=== PATIENT | male | born 1945 | race Caucasian/White ===

== ENCOUNTER 2019-05-18 08:17 | Inpatient (IN) ==
--- NOTE | 2019-05-02 13:32 | PAT Medication Instructions ---
Medication Instructions Date of Service May 02, 2019 Home Medications aspirin [Aspir-81] 81 mg PO QAM atorvastatin 20 mg PO QAM cholecalciferol (vitamin D3) [Vitamin D3] 1,000 unit PO QPM diltiazem HCl [Cardizem CD] 120 mg PO QAM lisinopril-hydrochlorothiazide 1 tab PO BID metformin 1,000 mg PO BID ASK your prescriber and surgeon aspirin [Aspir-81] 81 mg PO QAM DO NOT take the morning of surgery lisinopril-hydrochlorothiazide 1 tab PO BID metformin 1,000 mg PO BID Take morning of surgery With a small sip of water, OTHERWISE NOTHING TO EAT OR DRINK AFTER MIDNIGHT: atorvastatin 20 mg PO QAM diltiazem HCl [Cardizem CD] 120 mg PO QAM Take evening before surgery cholecalciferol (vitamin D3) [Vitamin D3] 1,000 unit PO QPM lisinopril-hydrochlorothiazide 1 tab PO BID metformin 1,000 mg PO BID Other Notes If you have any questions please call us at [phone] or [phone] or [phone] or [phone]
--- NOTE | 2019-05-05 10:15 | Anesthesiology Consultation ---
Date of Service May 05, 2019 Assessment & Plan (1) Encounter for pre-operative examination: - Patient seeing PCP (Dr. Kincaid/BOOM) prior to surgery (05/06)- awaiting office visit note. - Check BSG AM DOS - ASA instructions: okay to continue perioperatively per surgeon Chart Review Chart Review: Patient seen in Pre Admission Testing Teaching & Discussion Pre-Anesthesia Teaching/Discussion Notes: Instructed NPO after midnight before surgery,except medications with 15 cc of water. Medication instructions provided according to the PAT guidelines. History Surgery Operation Date: 05/18/19 07:45 Proposed Procedures p L1-S1 Decompression, R96-[place] Fusion, Spinal Cord Monitoring - Arjun Isaacs, Height/Weight Height: 5 ft 5.5 in Weight: 99.7 kg Allergies Allergy/AdvReac Type Severity Reaction Status Date / Time No Known Allergies Allergy Mild Verified 04/22/19 10:21 Medications Home Medications Medication Instructions Recorded Confirmed Last Taken aspirin [Aspir-81] 81 mg PO QAM 04/22/19 04/22/19 04/22/19 atorvastatin 20 mg PO QAM 04/22/19 04/22/19 04/22/19 cholecalciferol (vitamin D3) 1,000 unit PO QPM 04/22/19 04/22/19 Unknown [Vitamin D3] diltiazem HCl [Cardizem CD] 120 mg PO QAM 04/22/19 04/22/19 04/22/19 lisinopril-hydrochlorothiazide 1 tab PO BID 04/22/19 04/22/19 04/22/19 metformin 1,000 mg PO BID 04/22/19 04/22/19 04/22/19 Past Medical History Medical History CKD (chronic kidney disease) stage III Diabetes NIDDM Hyperlipidemia Hypertension Obesity PSVT (paroxysmal supraventricular tachycardia) remote hx s/p cardiac workup including stress test/Zio monitor, diltiazem added/discharged from cardiology 2014 and advised to f/u PRN Spinal stenosis Exercise / Class Metabolic Activity II 4-5 Yardwork/Stairs/Walk up hill Past Family History Family History Father Family history of colon cancer Family history of diabetes mellitus Grandmother No problems noted. Brother Family history of diabetes mellitus Grandfather (Maternal) No problems noted. Grandmother (Paternal) Family history of diabetes mellitus Grandmother (Maternal) Family history of diabetes mellitus Past Surgical History Surgical History History of anesthesia reaction slow to wake with tonsillectomy as child History of carpal tunnel surgery of left wrist History of colonoscopy History of repair of left rotator cuff History of right knee surgery X2 History of tonsillectomy Past Anesthesia History No Hx of Anesthesia Complications and No Family Hx of Anesthesia Complications History of PONV No Hx of PONV and No Hx of Motion Sickness Social History Smoking Status: Current every day smoker tobacco type: pipe Smoking cigarettes per day: DAILY PIPE Do You Dip or Chew Tobacco: No Hx Alcohol Use: Yes Alcohol type: beer alcohol intake frequency: a few times a week Hx Substance Use: No substance use type: does not use Review of Systems Rare palpitations. Patient denies chest pain, shortness of breath, dyspnea on exertion, cough, wheezing. Physical Exam Vital Signs VITALS BP 140/80 P 93 TEMP 98.6 SP02 97%RA RESP 18 PHYSICAL Full neck and c-spine range of motion. Full TMJ range of motion. TMD 4 finger breaths Mallampati Score 1 Dentition: several missing teeth on lower, full upper plate, poor dentition Lungs: clear throughout to auscultation Cardiac: regular rate and rhythm, II/ systolic murmur Spine: normal Carotid arteries: negative bruit Extremities: no edema Trimmed agosto Testing Laboratory Results 05/05/19 10:50 05/05/19 10:50 PT 10.5 Seconds (9.0-12.0) 05/05/19 10:50 INR 1.0 (0.9-1.1) 05/05/19 10:50 APTT 26.1 Seconds (21.0-31.0) 05/05/19 10:50 Hemoglobin A1c 7.8 % (4.5-5.6) H 05/05/19 10:50 Urine Color Yellow 05/05/19 Unknown Urine Appearance Clear (Clear) 05/05/19 Unknown Urine pH 5.0 (4.5-7.5) 05/05/19 Unknown Ur Specific [place] 1.022 (1.000-1.030) 05/05/19 Unknown Urine Protein Negative (Negative) 05/05/19 Unknown Urine Glucose (UA) Negative (Negative) 05/05/19 Unknown Urine Ketones Negative (Negative) 05/05/19 Unknown Urine Nitrite Negative (Negative) 05/05/19 Unknown Ur Leukocyte Esterase Negative (Negative) 05/05/19 Unknown Blood Type A Positive 05/05/19 10:50 Antibody Screen NEGATIVE 05/05/19 10:50 *Surgeon office made aware of elevated WBC and hgba1c* Electrocardiogram Date: 11/15/18 SR with first degree AVB at 96bpm. Otherwise normal ECG. Chest X-Ray Date: 11/18/18 Findings: + NAD (+ diffuse thoracic spine spondylosis) Echocardiogram Date: 09/14/18 LVEF 50-54%. Moderately increased cLV wall thickness. Mild LAE. Grade I DD. Mildly calcified AV. Several mitral annular calcification. Moderate MR. Stress Test Date: 06/30/14 Type: exercise Stress EKG/ECHO showed no evidence of ischemia. LVEF 55-59%. Mildly increased cLV wall thickness. Occasional PAC's with stress. Moderate MR.
[2019-05-05 12:35] LABS: Basophils # (auto) 0.03 K/uL (0-0.2); Basophils % (auto) 0.3 %; Eosinophils # (auto) 0.27 K/uL (0-0.5); Eosinophils % (auto) 2.3 %; Hematocrit (blood only) 40.9 % (42-52); Hemoglobin 14.1 g/dL (14.0-18.0); Immature Granulocytes # (auto) 0.07 K/uL (0.00-0.02); Immature Granulocytes % (auto) 0.6 %; Lymphocytes % (auto) 23.5 %; Mean Corpuscular Hemoglobin 32.4 pg (25-34); Mean Corpuscular Hgb Conc 34.5 g/dL (32-36); Mean Platelet Volume 11.5 fL (7.4-10.4); Monocytes # (auto) 1.12 K/uL (0.11-0.59); Monocytes % (auto) 9.4 %; Neutrophils # (auto) 7.65 K/uL (1.4-6.5); Neutrophils % (auto) 63.9 %; Platelet Count 248 K/uL (130-400); RDW Coefficient of Variation 12.9 % (11.5-14.5); RDW Standard Deviation 44.4 fL (36.4-46.3); Red Blood Count 4.35 M/uL (4.7-6.1); White Blood Count 11.94 K/uL (4.8-10.8)
[2019-05-05 12:40] LABS: Appearance Urine Clear (Clear); Bilirubin Urine Negative (Negative); Blood Urine Negative (Negative); Color Urine Yellow; Glucose Urine UA Negative (Negative); Ketones Urine Negative (Negative); Leukocyte Esterase Urine Negative (Negative); Nitrite Urine Negative (Negative); Protein Urine Negative (Negative); Specific Gravity Urine 1.022 (1.000-1.030); Urobilinogen Urine Negative (Negative)
[2019-05-05 12:45] LABS: BUN Creatinine Ratio 18.9 (10-20); Calcium 9.6 mg/dl (8.5-10.1); Creatinine Clr Calc Pharmacy 50.7 ml/min; Est GFR (Non-African American) 49.1; Potassium 4.2 mmol/L (3.5-5.1)
[2019-05-05 12:46] LABS: Partial Thromboplastin Time 26.1 Seconds (21.0-31.0); Prothrombin Time 10.5 Seconds (9.0-12.0)
[2019-05-05 13:14] LABS: Estimated Average Glucose 177 mg/dl; Hemoglobin A1C 7.8 % (4.5-5.6)
[~2019-05-18 08:17] MED LIST: ACETAMINOPHEN 500 MG TAB PO SCH; ALBUMIN HUMAN 5% 12.5 GM/250 ML VIAL IV ONE; CEFAZOLIN 1000MG 1,000 MG/7.5 ML SYR IV SCH; CEFAZOLIN 2000MG 2,000 MG/15 ML SYR IV SCH; CeleBREX 200 MG CAP PO SCH; GABAPENTIN 300 MG CAP PO SCH; LR 15ML/HR IV SCH
[2019-05-18] MEDS ORDERED: ePHEDrine sulfate 50 MG/ML AMP IV PRN (09:31)
[2019-05-18] MEDS ORDERED: ATROPINE SULFATE 0.1 MG/ML 10ML SYR IV PRN (09:31)
[2019-05-18] MEDS ORDERED: ONDANSETRON INJ 2 MG/ML 2 ML VIAL IV PRN ×2 (09:31→16:37)
[2019-05-18] MEDS ORDERED: HYDROmorphone INJ 1 MG/ML SYRINGE IV PRN ×2 (09:31→16:37)
[2019-05-18] MEDS ORDERED: fentaNYL citrate 100 MCG/2 ML VIAL IV PRN (09:31)
[2019-05-18] MEDS ORDERED: fentaNYL citrate 100 MCG/2 ML VIAL ONE ×4 (09:37→15:06)
[2019-05-18] MEDS ORDERED: PROPOFOL IV EMULSION 10 MG/ML 20 ML VIAL IV ONE (09:37)
[2019-05-18] MEDS ORDERED: ONDANSETRON INJ 2 MG/ML 2 ML VIAL ONE (09:37)
[2019-05-18] MEDS ORDERED: DEXAMETHASONE SOD INJ 4 MG/ML VIAL ONE (09:37)
[2019-05-18] MEDS ORDERED: ROCURONIUM BROMIDE 10 MG/ML 5 ML VIAL ONE (09:37)
[2019-05-18] MEDS ORDERED: LIDOCAINE HCL 2% 2 ML VIAL/AMP(20MG/ML) INFIL ONE (09:37)
--- NOTE | 2019-05-18 09:56 | History & Physical Bridge Note ---
Date of Service May 18, 2019 History & Physical Bridge Note I have examined the patient, reviewed the History & Physical and in the interval since the performance of the History & Physical I have noted the following changes of clinical significance: no changes noted
--- NOTE | 2019-05-18 09:57 | History & Physical Report ---
Date of Service May 18, 2019 Assessment & Plan (1) Neurogenic claudication due to lumbar spinal stenosis: L1-S1 decompression, T11 to pelvic fusion Present on Admission?: Yes History of Present Illness Chief Complaint: Back and bilateral leg pain Primary Care Provider: Mayuri Kincaid MD This is a 73-year-old male who presents with back and bilateral leg pain. After failing extensive course of nonoperative care is here for surgical invention. Allergies Allergy/AdvReac Type Severity Reaction Status Date / Time No Known Allergies Allergy Mild Verified 05/18/19 08:59 Home Medications Home Medications Medication Instructions Recorded Confirmed Type aspirin [Aspir-81] 81 mg PO QAM 04/22/19 05/18/19 History atorvastatin 20 mg PO QAM 04/22/19 05/18/19 History cholecalciferol (vitamin D3) 1,000 unit PO QPM 04/22/19 05/18/19 History [Vitamin D3] diltiazem HCl [Cardizem CD] 120 mg PO QAM 04/22/19 05/18/19 History lisinopril-hydrochlorothiazide 1 tab PO BID 04/22/19 05/18/19 History metformin 1,000 mg PO BID 04/22/19 05/18/19 History ibuprofen 600 mg PO Q6H PRN 05/18/19 05/18/19 History Past Med/Surg History Medical History CKD (chronic kidney disease) stage III Diabetes NIDDM Hyperlipidemia Hypertension Obesity PSVT (paroxysmal supraventricular tachycardia) remote hx s/p cardiac workup including stress test/Zio monitor, diltiazem added/discharged from cardiology 2014 and advised to f/u PRN Spinal stenosis Surgical History History of anesthesia reaction slow to wake with tonsillectomy as child History of carpal tunnel surgery of left wrist History of colonoscopy History of repair of left rotator cuff History of right knee surgery X2 History of tonsillectomy Family History Father Family history of colon cancer Family history of diabetes mellitus Grandmother No problems noted. Brother Family history of diabetes mellitus Grandfather (Maternal) No problems noted. Grandmother (Paternal) Family history of diabetes mellitus Grandmother (Maternal) Family history of diabetes mellitus Social History Preferred Language: Lithuanian Communication Ability: Effective Imaging Aide Required: No Beliefs That Will Affect Care: None Current Living Situation: Alone Other Information That Helps Us Care for You: No Feels Safe at Home: Yes Smoking Status: Current every day smoker Tobacco Type: pipe ; Cigarettes Per Day: DAILY PIPE ; Do You Dip or Chew Tobacco: No ; Hx Alcohol Use: Yes Alcohol type: beer Hx Substance Use: No Physical Exam Physical Exam: Patient is alert and oriented neurologically intact. Results & Data Vital Signs (Past 12 Hours) Vital Signs Temp Pulse Resp BP Pulse Ox 05/18/19 08:49 36.5 C 85 20 117/78 98
[2019-05-18] MEDS ORDERED: ALBUT/IPRATROP 3MG/0.5MG NEB 3 ML VIAL INH STA (10:04)
[2019-05-18] MEDS ORDERED: BUPIVACAINE/EPINEPHRINE 0.5% MPF 1:200,000 10 ML VIAL ONE (10:24)
[2019-05-18] MEDS ORDERED: BACITRACIN INJ 50,000 UNIT VIAL ONE (10:24)
[2019-05-18] MEDS ORDERED: ALBUT/IPRATROP 3MG/0.5MG NEB 3 ML VIAL INH PRN (10:31)
[2019-05-18] MEDS ORDERED: THROMBIN FOR SOLN 20000 UNIT KIT ONE (11:02)
[2019-05-18] MEDS ORDERED: KETAMINE HCL INJ 50 MG/ML 10 ML VIAL ONE (11:10)
[2019-05-18] MEDS ORDERED: FLOSEAL HEMOSTATIC MATRIX 10ML TOP ONE (11:29)
[2019-05-18] MEDS ORDERED: MIDAZOLAM HCL 1 MG/ML 2ML VIAL ONE (11:30)
[2019-05-18] MEDS ORDERED: HYDROmorphone INJ 2 MG/ML SYR/VIAL ONE ×2 (12:18→15:06)
[2019-05-18] MEDS ORDERED: SODIUM CHLORIDE 0.9% INJ 10 ML VIAL ONE (12:19)
[2019-05-18 13:13] LABS: iSTAT Creatinine 1.2 mg/dl (0.6-1.3); iSTAT Hemoglobin 9.5 g/dl (14.0-18.0); iSTAT Ionized Calcium 1.12 mmol/l (1.12-1.32); iSTAT Potassium 4.5 mmol/L (3.3-5.0)
[2019-05-18] MEDS ORDERED: CEFAZOLIN 250 MG/ML 1 GM VIAL ONE (13:44)
[2019-05-18] MEDS ORDERED: SODIUM CHLORIDE 0.9% 250 ML IV PRN ×3 (13:46→14:39)
[2019-05-18] MEDS ORDERED: CEFAZOLIN 2000MG 2,000 MG/15 ML SYR IV ONE (13:55)
[2019-05-18] MEDS ORDERED: CALCIUM CHLORIDE 10% 10 ML SYR IV ONE (13:56)
[2019-05-18 14:08] LABS: Hematocrit (blood only) 33.9 % (42-52); Hemoglobin 11.6 g/dL (14.0-18.0)
[2019-05-18] MEDS ORDERED: PHENYLEPHRINE 100MCG/ML 5ML SYR ONE ×2 (14:30→14:31)
[2019-05-18] MEDS ORDERED: PHENYLEPHRINE HCL 10 MG/ML VIAL ONE ×2 (14:30→15:41)
[2019-05-18] MEDS ORDERED: ePHEDrine sulfate 50 MG/ML SYR ONE (14:31)
--- NOTE | 2019-05-18 14:52 | Operative Report ---
Post Operative Report Pre & Post Diagnosis Operation Date: 05/18/19 10:05 Pre-Op Diagnosis: Neurogenic claudication due to lumbar spinal stenosis Post-Op Diagnosis: Neurogenic claudication due to lumbar spinal stenosis I identified the patient and participated in the time-out.: Yes Procedure Operation Date: 05/18/19 10:05 Actual Procedures 1 lumbar decompression with bilateral medial facetectomies and foraminotomies T12-L1 L1 L2-L3-L4 L4-L5 L5-S1. #2 posterior spinal fusion T11-S1. #3 placement posterior segmental instrumentation T11-S1 with cross-link. #4 interbody fusion L4-5 per #5 placed a peek cage 13 x 26 mm at L4-5. #6 placement of locally harvested morselized autograft in the posterior lateral gutters. #7 patient infuse collagen sponge bone master graft in the posterior lateral gutters and ostial amp and interbody space. Surgeon Arjun Isaacs, DO Horse Race Timer Willow Mckeon Estimated Blood Loss 2,000 Findings See Below The patient is 5 foot 5 inches tall weighing over 99 kg with a BMI in excess of 36. This combined with an EBL of 2000 cc created significant technical difficulty and at least 50% increased to the operative time. Specimens None Indications This is a 73-year-old male who presents with above-mentioned diagnosis after failing extensive course of nonoperative care is here for surgical intervention. Description of Procedure Patient was met with identified informed consent obtained. Patient was then taken to the operative suite underwent an patient placed in prone position on the South table on top of the Phill frame. All bony prominences were well- padded eyes inspected to ensure no external pressure placed upon the. This point the thoracolumbar spine was prepped and draped in normal sterile fashion. Sharp dissection with the assistance of Bovie cautery was performed down to and exposing the lamina and transverse processes of T11-S1. From a caudal cephalad fashion complete laminectomy of L5 L4 L3 L2 L1 partial laminectomy of T12 was performed including bilateral medial facetectomies and foraminotomies addressing severe multilevel spinal stenosis. After this complete pedicle screws were placed in T11-T12 L1-L2 L3-L4-L5 and S1 levels bilaterally and the purposes chaitanya contoured and placed. Through transforaminal approach on the left complete discectomy of L4-5 was performed endplates curetted to subcortical bleeding bone and a 13 x 26 mm peek cage filled with osteo-amp bone graft tapped in position. The rods were then locked into final position bilaterally. A cross-link locked in position. Transverse processes from T11 to the sacral ala were then burred to subcortical bleeding bone. Infuse collagen sponge master graft and local autograft was placed in the posterior lateral gutters. A cross-link locked in position. 15 round MELISSA drain inserted. The incision was then closed with 1 Vicryl in the fascia 2-0 Vicryl subcutaneously and 4 Monocryl for final skin closure. Steri-Strip sterile dressings placed. Patient will continue PACU stable condition. Please note Willow Mckeon was present at the entire procedure involved in patient positioning complex portions of the surgery and final skin closure. Lastly spinal cord monitoring was utilized that the procedure no changes noted. I attest to the content of the Intraoperative Record and any orders documented therein. Any exceptions are noted below.
--- NOTE | 2019-05-18 14:55 | Fluoroscopy Report ---
FL lumbar spine 2-3V HISTORY: 73 years-old Male L1-S1 DECOMPRESSION, [id number] FUSION COMPARISON: None available TECHNIQUE: 5 spot fluoroscopic images of the lumbar spine were obtained utilizing 45.6 seconds fluoro scopy time. FINDINGS: Extensive posterior interbody chaitanya and screw fusion hardware of the thoracolumbar spine appears to ext end from the T11 through the S1 level. As visualized, the alignment appears satisfactory and the hard anderson appears intact. Discectomy changes at L4-L5. Multilevel facet arthrosis with spondylitic spurrin g and disc space narrowing incidentally noted. Mild convex right curvature of the mid lumbar spine. IMPRESSION: Fluoroscopic assistance as above. Please see operative report for further details. ACT 112: Negative or not required by law. The above report was generated using voice recognition software. It may contain grammatical, syntax o r spelling errors. Electronically signed by: Deven Blackman M.D. 05/18/2019 2:54 PM
[2019-05-18] MEDS ORDERED: GLYCOPYRROLATE 0.2 MG/ML VIAL ONE (15:02)
[2019-05-18] MEDS ORDERED: NEOSTIGMINE METHYLSULFATE 1 MG/ML 10ML VIAL ONE (15:02)
[2019-05-18] MEDS ORDERED: VASOPRESSIN 20 UNIT/ML VIAL ONE (15:28)
[2019-05-18 15:59] LABS: Hematocrit (blood only) 30.9 % (42-52); Hemoglobin 10.6 g/dL (14.0-18.0); Mean Corpuscular Hemoglobin 31.5 pg (25-34); Mean Platelet Volume 10.5 fL (7.4-10.4); Platelet Count 205 K/uL (130-400); RDW Coefficient of Variation 13.2 % (11.5-14.5); RDW Standard Deviation 44.4 fL (36.4-46.3); Red Blood Count 3.36 M/uL (4.7-6.1); White Blood Count 16.52 K/uL (4.8-10.8)
[2019-05-18 16:02] LABS: iSTAT Creatinine 1.3 mg/dl (0.6-1.3); iSTAT Hemoglobin 10.5 g/dl (14.0-18.0); iSTAT Ionized Calcium 1.08 mmol/l (1.12-1.32); iSTAT Potassium 5.2 mmol/L (3.3-5.0)
[2019-05-18 16:05] LABS: Mean Corpuscular Hgb Conc 34.3 g/dL (32-36)
[2019-05-18 16:16] LABS: Basophils # (auto) 0.04 K/uL (0-0.2); Basophils % (auto) 0.2 %; Eosinophils # (auto) 0.02 K/uL (0-0.5); Eosinophils % (auto) 0.1 %; Immature Granulocytes # (auto) 0.19 K/uL (0.00-0.02); Immature Granulocytes % (auto) 1.2 %; Lymphocytes # (auto) 1.12 K/uL (1.2-3.4); Lymphocytes % (auto) 6.8 %; Monocytes # (auto) 0.62 K/uL (0.11-0.59); Monocytes % (auto) 3.8 %; Neutrophils # (auto) 14.53 K/uL (1.4-6.5); Neutrophils % (auto) 87.9 %
--- NOTE | 2019-05-18 16:20 | Anesthesiology Progress Note ---
Date of Service May 18, 2019 Anesthesia Post Procedure Vital Signs Vital Signs: Temp Pulse Pulse Pulse Resp BP BP 05/18/19 16:15 37.0 C 93 H 16 109/40 L 05/18/19 16:07 37.3 C 93 H 20 113/39 L 05/18/19 16:05 36.7 C 95 H 16 118/43 L 05/18/19 15:55 36.7 C 90 16 126/43 L 05/18/19 15:52 36.8 C 84 16 125/44 L 05/18/19 15:45 36.4 C L 90 16 113/44 L 05/18/19 15:39 36.5 C 95 H 18 108/46 L 05/18/19 15:36 36.5 C 92 H 12 95/24 L 05/18/19 10:18 95 H 16 05/18/19 08:49 36.5 C 85 20 BP Pulse Ox 05/18/19 16:15 103/68 96 05/18/19 16:07 100 05/18/19 16:05 130/60 100 05/18/19 15:55 141/67 H 100 05/18/19 15:52 100 05/18/19 15:45 142/70 H 100 05/18/19 15:39 100 05/18/19 15:36 97/38 L 100 05/18/19 10:18 05/18/19 08:49 117/78 98 Pain Intensity Buttock: Pain Intensity: 3 Transfer of Care Handoff Completed per policy Notes Mental Status: alert / awake / arousable and participated in evaluation Patient Amnestic to Procedure: Yes Nausea / Vomiting: adequately controlled Pain: adequately controlled Airway Patency, RR, SpO2: stable & adequate BP & HR: stable & adequate Hydration State: stable & adequate Anesthetic Complications: no major complications apparent and Pt Satisfied with anesthetic care Notes: Patient had significant intraoperative blood loss requiring pressor support and blood product replacement. received 3 units pRBCs during case and wrote for 2 units FFP that were started in recovery. low dose terri ggt started at end of procedure to maintain adequate blood pressure. decision made to observe overnight in ICU, surgeon placed orders. report given to ICU physician who was accepting patient. patient was awake and moving extremities x4 in recovery. met transfer criteria and sent to ICU in stable condition.
[2019-05-18] MEDS ORDERED: METOCLOPRAMIDE HCL INJ 5 MG/ML 2 ML VIAL IV PRN (16:37)
[2019-05-18] MEDS ORDERED: ONDANSETRON 4 MG OD TAB PO PRN (16:37)
[2019-05-18] MEDS ORDERED: MAGNESIUM HYDROXIDE SUSP 30 ML UDC PO PRN (16:37)
[2019-05-18] MEDS ORDERED: SOD PHOSPHATE/SOD BIPHOSPHATE ENEMA 132 ML BTL PR PRN (16:37)
[2019-05-18] MEDS ORDERED: bisacodyL 10 MG SUPP PR PRN (16:37)
[2019-05-18] MEDS ORDERED: ACETAMINOPHEN 500 MG TAB PO PRN (16:37)
[2019-05-18] MEDS ORDERED: PROMETHAZINE HCL 12.5 MG in SODIUM CHLORIDE 0.9% 50 ML IV PRN (16:37)
[2019-05-18] MEDS ORDERED: DO NOT ADMINISTER PNEUMOCOCCAL VACCINE PRN (16:37)
[2019-05-18] MEDS ORDERED: FAMOTIDINE 20 MG TAB PO PRN (16:37)
[2019-05-18] MEDS ORDERED: LORazepam 0.5 MG/1 ML VIAL IV PRN (16:37)
[2019-05-18] MEDS ORDERED: ALUMINUM/MAGNESIUM SUSP 30 ML UDC PO PRN (16:37)
[2019-05-18] MEDS ORDERED: HYDROmorphone INJ 0.5 MG/0.5 ML SYR IV PRN (16:37)
[2019-05-18] MEDS ORDERED: LORazepam 0.5 MG TAB PO PRN (16:37)
[2019-05-18] MEDS ORDERED: ACETAMINOPHEN 1,000 MG/100 ML VIAL IV PRN (16:37)
[2019-05-18] MEDS ORDERED: NALOXONE HCL 0.4 MG/1 ML VIAL/CARP IV PRN (16:37)
[2019-05-18] MEDS ORDERED: DO NOT ADMINISTER FLU VACCINE PRN (16:37)
[2019-05-18] MEDS ORDERED: TRANEXAMIC ACID / 0.7% NACL 1,000 MG/100 ML BAG IV STA (16:38)
--- NOTE | 2019-05-18 16:47 | Critical Care Consultation ---
Date of Consultation May 18, 2019 Assessment & Plan (1) Admitted to intensive care unit: Reason Critically Ill: 73-year-old male with acute blood loss anemia intraoperatively requiring close hemodynamic monitoring status post transfusion of 3 units PRBCs and currently requiring vasopressors to maintain blood pressures. NEURO - * CAM ICU: NEGATIVE * Pain: Treat as needed. CARDIAC/VASCULAR - * Hypotension: * Likely related to blood loss, anesthesia, long OR case. * Will titrate down pressors as tolerated. * Transfuse PRBCs PRN * Hold home antihypertensive Rx at this time. * Monitor on telemetry. RESPIRATORY - * Smoker w/ audible wheezing. * Will add albuterol PRN * Saturating well on RA at this point. GI/NUTRITION - * Progress diet as tolerated. RENAL/LYTES - * CKD III * No significant electrolyte derangements. - * Strict I&Os. ENDO - * NIDDM * BSGs per unit protocol. ISS --> gtt per unit policy. HEME - * Acute blood loss anemia: * Initially received 3U PRBCs, 2 FFP, TXA. * Trend H&H. * Transfuse as needed. ID - * No concerns for infectious causes at this point. LINES/IV ACCESS - * PIVs x2 * LEFT Radial A-line * MELISSA drains DVT PROPHYLAXIS - * Hold on chemoprophylaxis 2/2 bleeding risks. * SCDs I have personally spent 35 minutes of critical care time in the direct man agement of this patient. This is a life/limb threatening event. This includes time spent evaluating patient, direct bedside care, chart review, placing orders, interpretation of diagnostic studies, discussion with consultants, patient, and family members, as well as other required patient management activities. This time is exclusive of all separately billable procedures, and teaching time and separate from and in addition to any other critical care service time. Thank you for allowing us to participate in the care of this patient. Please refer to my attending physician's documentation for any further recommendations. (2) Acute blood loss as cause of postoperative anemia: (3) Neurogenic claudication due to lumbar spinal stenosis: (4) PSVT (paroxysmal supraventricular tachycardia): (5) CKD (chronic kidney disease): (6) Obesity: (7) Diabetes: (8) Hyperlipidemia: (9) Hypertension: Supervising Physician Co-Signing Physician Notes I have personally evaluated and examined this patient. I agree with assessment and plan of Jesus Appiah PA-C. Patient was ordered 1 g TXA given his bleeding and volume requirements. I discussed this case with Dr. Isaacs. Patient requiring vasoactive medication to maintain appropriate map, I suspect this is secondary to general anesthesia and generalized SIRS response from extensive surgery. History of Present Illness Attending Physician: Arjun Isaacs, DO History of Present Illness Patient is a 73-year-old male with a significant past medical history of CKD 3, diabetes, hyperlipidemia, hypertension, obesity, paroxysmal supraventricular tac hycardia, and spinal stenosis. Patient underwent elective surgical decompression of L1-S1 as well as T12 to pelvic fusion secondary to ongoing back pain and leg pain. Intraoperatively, the patient was noted to lose a moderate amount of blood. He received 3 units PRBCs, 2 of FFP, and TXA. He remained on Jhonatan-Synephrine and was subsequently brought to the ICU post intervention. Upon evaluation in the ICU, the patient is awake, alert, and oriented. He complains of some soreness to his lower back and hips, but otherwise offers no complaints. He specifically denies any headaches, dizziness, lightheadedness, chest pain, palpitations, shortness of breath, pleuritic pain, nausea, vomiting, or abdominal pain. He denies any numbness or weakness in his lower extremities. Allergies Allergy/AdvReac Type Severity Reaction Status Date / Time No Known Allergies Allergy Mild Verified 05/18/19 08:59 Home Medications Home Medications Medication Instructions Recorded Confirmed Type aspirin [Aspir-81] 81 mg PO QAM 04/22/19 05/18/19 History atorvastatin 20 mg PO QAM 04/22/19 05/18/19 History cholecalciferol (vitamin D3) 1,000 unit PO QPM 04/22/19 05/18/19 History [Vitamin D3] diltiazem HCl [Cardizem CD] 120 mg PO QAM 04/22/19 05/18/19 History lisinopril-hydrochlorothiazide 1 tab PO BID 04/22/19 05/18/19 History metformin 1,000 mg PO BID 04/22/19 05/18/19 History ibuprofen 600 mg PO Q6H PRN 05/18/19 05/18/19 History Patient History Medical History Alcohol use CKD (chronic kidney disease) stage III Diabetes NIDDM Diabetes mellitus, type II Hyperlipidemia Hypertension Obesity PSVT (paroxysmal supraventricular tachycardia) remote hx s/p cardiac workup including stress test/Zio monitor, diltiazem added/discharged from cardiology 2015 and advised to f/u PRN Spinal stenosis Tobacco use Surgical History History of anesthesia reaction slow to wake with tonsillectomy as child History of carpal tunnel surgery of left wrist History of colonoscopy History of repair of left rotator cuff History of right knee surgery X2 History of tonsillectomy Family History Father Family history of colon cancer Family history of diabetes mellitus Grandmother No problems noted. Brother Family history of diabetes mellitus Grandfather (Maternal) No problems noted. Grandmother (Paternal) Family history of diabetes mellitus Grandmother (Maternal) Family history of diabetes mellitus Social History Preferred Language: Macedonian Communication Ability: Effective Nut Former Required: No Beliefs That Will Affect Care: None Current Living Situation: Alone Other Information That Helps Us Care for You: No Feels Safe at Home: Yes Smoking Status: Current every day smoker Tobacco Type: pipe ; Cigarettes Per Day: DAILY PIPE ; Do You Dip or Chew Tobacco: No ; Hx Alcohol Use: Yes Alcohol type: beer Hx Substance Use: No Review of Systems Review of Systems: A complete 10 point review of systems was reviewed with the patient with pertinent positives and negatives as per history of present illness. All else were negative. Physical Exam Physical Exam: VITAL SIGNS - Vital signs and nursing notes were reviewed. GENERAL - 73-year-old male appearing his stated age who is in no acute distress. Communicates well with provider and answers questions appropriately. SKIN - Postoperative spine dressing clean, dry, and intact. MELISSA drains in place. HEAD - NC/AT. EYES - PERRL with EOMI bilaterally. Sclera anicteric. EARS - No deformities of external structures noted on gross examination loretta aterally. NOSE - Midline and without cyanosis. No epistaxis or purulent drainage noted. MOUTH/OROPHARYNX - Without perioral cyanosis. Buccal mucosa pink and moist and without leukoplakia. NECK - Neck with FROM. No nuchal rigidity. LUNGS - Chest wall symmetric without accessory muscle use, intercostals retractions, or central cyanosis. Normal vesicular breath sounds CTA B/L. No wheezes, rales, or rhonchi appreciated. CARDIAC - RRR with S1/S2. No murmur, rubs, or gallops appreciated. ABDOMEN - Abdominal contour protuberant without pulsations or visible masses. BS normoactive all four quadrants. No tenderness, palpable masses, hepatosplenomegaly, or ascites noted. EXTREMITIES - No clubbing or peripheral cyanosis. No pretibial edema present. +3/5 radial, posterior tibial, and dorsalis pedis pulses palpated throughout. +5/5 strength noted in UE/LE bilaterally. NEUROLOGIC - Cranial nerves II through XII grossly intact. Sensory intact to light touch throughout. PSYCH - A&Ox3 and cooperates fully with examiner. Pt is very pleasant and interacts well with examiner. Results & Data Vital Signs (Past 12 Hours) Vital Signs Temp Pulse Pulse Pulse Resp BP BP 05/18/19 16:25 36.9 C 95 H 16 97/31 L 05/18/19 16:15 37.0 C 93 H 16 109/40 L 05/18/19 16:07 37.3 C 93 H 20 113/39 L 05/18/19 16:05 36.7 C 95 H 16 118/43 L 05/18/19 15:55 36.7 C 90 16 126/43 L 05/18/19 15:52 36.8 C 84 16 125/44 L 05/18/19 15:45 36.4 C L 90 16 113/44 L 05/18/19 15:39 36.5 C 95 H 18 108/46 L 05/18/19 15:36 36.5 C 92 H 12 95/24 L 05/18/19 10:18 95 H 16 05/18/19 08:49 36.5 C 85 20 BP Pulse Ox 05/18/19 16:25 111/51 L 96 05/18/19 16:15 103/68 96 05/18/19 16:07 100 05/18/19 16:05 130/60 100 05/18/19 15:55 141/67 H 100 05/18/19 15:52 100 05/18/19 15:45 142/70 H 100 05/18/19 15:39 100 05/18/19 15:36 97/38 L 100 05/18/19 10:18 05/18/19 08:49 117/78 98 Coding Level of Care Code Critical Care 1st 30-74 mins Diagnoses Admitted to intensive care unit Z78.9 Acute blood loss as cause of postoperative anemia D62 Neurogenic claudication due to lumbar spinal stenosis M48.062 PSVT (paroxysmal supraventricular tachycardia) I47.1 CKD (chronic kidney disease) N18.9 Obesity E66.9 Diabetes E11.9 Hyperlipidemia E78.5 Hypertension I10 Time Spent (min) 35
[2019-05-18] MEDS: SODIUM CHLORIDE 0.9% 1000ML 1,000 ML IV SCH ×2 (16:54→23:45)
[2019-05-18] MEDS: PHENYLEPHRINE HCL 20 MG in DEXTROSE 5% 500 ML IV SCH (16:55)
[2019-05-18] MEDS: BEER 1 CAN PO SCH ×2 (18:31→21:15)
[2019-05-18 19:12] LABS: Hemoglobin 9.8 g/dL (14.0-18.0); Mean Corpuscular Hemoglobin 31.7 pg (25-34); Mean Corpuscular Volume 90.6 fL (80-100); Mean Platelet Volume 10.8 fL (7.4-10.4); Platelet Count 191 K/uL (130-400); RDW Coefficient of Variation 13.7 % (11.5-14.5); RDW Standard Deviation 45.2 fL (36.4-46.3); Red Blood Count 3.09 M/uL (4.7-6.1)
[2019-05-18] MEDS: OXYCODONE HCL IR 5 MG TAB (IMMEDIATE RELEASE) PO PRN (19:22)
[2019-05-18] MEDS: CEFAZOLIN 2000MG 2,000 MG/15 ML SYR IV SCH (19:24)
[2019-05-18 19:27] LABS: INR 1.2 (0.9-1.1); Prothrombin Time 11.9 Seconds (9.0-12.0)
[2019-05-18 19:34] LABS: Albumin Level 3.2 gm/dl (3.4-5.0); BUN Creatinine Ratio 18.9 (10-20); Creatinine Clr Calc Pharmacy 49.4 ml/min; Est GFR (African American) 55.1; Est GFR (Non-African American) 47.5; Magnesium 1.3 mg/dl (1.8-2.4); Potassium 4.9 mmol/L (3.5-5.1)
[2019-05-18 19:36] LABS: Albumin Globulin Ratio 1.2 (0.9-2); Bilirubin,Total 1.1 mg/dl (0.2-1); Globulin 2.6 gm/dl (2.5-4.0); Phosphorus 3.8 mg/dl (2.5-4.9); Total Protein 5.8 gm/dl (6.4-8.2)
[2019-05-18 19:45] LABS: Basophils # (auto) 0.01 K/uL (0-0.2); Basophils % (auto) 0.1 %; Eosinophils # (auto) 0.01 K/uL (0-0.5); Eosinophils % (auto) 0.1 %; Immature Granulocytes % (auto) 0.6 %; Lymphocytes # (auto) 1.42 K/uL (1.2-3.4); Lymphocytes % (auto) 8.1 %; Monocytes # (auto) 1.43 K/uL (0.11-0.59); Monocytes % (auto) 8.2 %; Neutrophils # (auto) 14.53 K/uL (1.4-6.5); Neutrophils % (auto) 82.9 %
--- NOTE | 2019-05-18 20:04 | Internal Medicine Consult Note ---
Date of Consultation May 18, 2019 Assessment & Plan (1) Acute blood loss as cause of postoperative anemia: POST-OPERATIVE STATE S/P LUMBAR SPIN DECOMPRESSION AND FUSION -This is a patient currently in the intensive care unit after spine surgery. Patient on 05/18/2019 had the following procedures by orthopedic surgeon Dr. Isaacs "1 lumbar decompression with bilateral medial facetectomies and foraminotomies T12-L1 L1 L2-L3-L4 L4-L5 L5-S1. #2 posterior spinal fusion T11- S1. #3 placement posterior segmental instrumentation T11-S1 with cross-link. #4 interbody fusion L4-5 per #5 placed a peek cage 13 x 26 mm at L4-5. #6 placement of locally harvested morselized autograft in the posterior lateral gutters. #7 patient infuse collagen sponge bone master graft in the posterior lateral gutters and ostial amp and interbody space." Patient had Acute blood loss anemia/hemorrhage intraoperatively as her was estimated to have 2 liters of blood loss. Patient has been transfused 5 units PRBC with 2 fresh frozen plasma. Patient received IV fluids. Patient's other resuscitation medications on IV pressors while monitored in the Intensive Care Unit. Patient breathing on room air. He was able to speak to hospitalist physician comfortably. No acute pain. No shortness of breath -continue management under ICU level of care with ICU physician and management of pressors by that team -would hold aspirin for now; avoid NSAIDs for now -will order CXR on 05/19/2019 given volume of blood product transfusions -hospitalist service will continue to follow the patient with orthopedic service - My colleague Dr. Alfaro will be following the patient as hospitalist starting on 05/19/2019 -management of MELISSA drain as per orthopedic service -prn pain medications, ultimately will need PT/OT evaluations Alcohol Use -ICU physician has ordered "beer can q4 hours" for the patient due to concern for risk of alcohol withdrawal History of hypertension -hold home dose lisinopril/HCTZ at this time -may continue cardizem primarily for heart rate control Type 2 diabetes mellitus without prison current use of insulin -hold home dose metformin -sliding scale insulin as needed DVT prophylaxis: SCDs History of Present Illness Reason for Consultation: "medical management" Requesting Physician: Dr. Isaacs Attending Physician: Arjun Isaacs DO History of Present Illness This is a patient currently in the intensive care unit after spine surgery. Patient on 05/18/2019 had the following procedures by orthopedic surgeon Dr. Isaacs "1 lumbar decompression with bilateral medial facetectomies and foraminotomies T12-L1 L1 L2-L3-L4 L4-L5 L5-S1. #2 posterior spinal fusion T11-S1. #3 placement posterior segmental instrumentation T11-S1 with cross- link. #4 interbody fusion L4-5 per #5 placed a peek cage 13 x 26 mm at L4-5. #6 placement of locally harvested morselized autograft in the posterior lateral gutters. #7 patient infuse collagen sponge bone master graft in the posterior lateral gutters and ostial amp and interbody space." Patient had Acute blood loss anemia/hemorrhage intraoperatively as her was estimated to have 2 liters of blood loss. Patient has been transfused 5 units PRBC with 2 fresh frozen plasma. Patient received IV fluids. Patient's other resuscitation medications on IV pressors while monitored in the Intensive Care Unit. Patient breathing on room air. No shortness of breath. He was able to speak to hospitalist physician comfortably. No acute pain. Allergies Allergy/AdvReac Type Severity Reaction Status Date / Time No Known Allergies Allergy Mild Verified 05/18/19 08:59 Home Medications Home Medications Medication Instructions Recorded Confirmed Type aspirin [Aspir-81] 81 mg PO QAM 04/22/19 05/18/19 History atorvastatin 20 mg PO QAM 04/22/19 05/18/19 History cholecalciferol (vitamin D3) 1,000 unit PO QPM 04/22/19 05/18/19 History [Vitamin D3] diltiazem HCl [Cardizem CD] 120 mg PO QAM 04/22/19 05/18/19 History lisinopril-hydrochlorothiazide 1 tab PO BID 04/22/19 05/18/19 History metformin 1,000 mg PO BID 04/22/19 05/18/19 History ibuprofen 600 mg PO Q6H PRN 05/18/19 05/18/19 History Patient History Medical History CKD (chronic kidney disease) stage III Diabetes NIDDM Hyperlipidemia Hypertension Obesity PSVT (paroxysmal supraventricular tachycardia) remote hx s/p cardiac workup including stress test/Zio monitor, diltiazem added/discharged from cardiology 2014 and advised to f/u PRN Spinal stenosis Surgical History History of anesthesia reaction slow to wake with tonsillectomy as child History of carpal tunnel surgery of left wrist History of colonoscopy History of repair of left rotator cuff History of right knee surgery X2 History of tonsillectomy Family History Father Family history of colon cancer Family history of diabetes mellitus Grandmother No problems noted. Brother Family history of diabetes mellitus Grandfather (Maternal) No problems noted. Grandmother (Paternal) Family history of diabetes mellitus Grandmother (Maternal) Family history of diabetes mellitus Social History Preferred Language: Slovak Communication Ability: Effective Package Designer Required: No Beliefs That Will Affect Care: None Current Living Situation: Alone Other Information That Helps Us Care for You: No Feels Safe at Home: Yes Smoking Status: Current every day smoker Tobacco Type: pipe ; Cigarettes Per Day: DAILY PIPE ; Do You Dip or Chew Tobacco: No ; Hx Alcohol Use: Yes Alcohol type: beer Hx Substance Use: No Review of Systems Review of Systems: All systems reviewed & are unremarkable except as noted in HPI & below Physical Exam Constitutional: comfortable Eyes: PERRL, conjunctivae normal, anicteric sclerae EOM intact bilaterally ENMT: external ear and nose normal, oropharynx normal Neck: normal visual inspection Respiratory: normal respiratory effort Cardiovascular: Rate/Rhythm: regular rate and regular rhythm Gastrointestinal (Abdomen): normal bowel sounds, soft, nontender, no hepatosplenomegaly Musculoskeletal: Head/Neck/Chest: normocephalic and head atraumatic MELISSA drain to the back with serosanguinous blood Neurologic: PERRL, EOMI, accommodation nl, no face palsy, no dysarthria Psychiatric: A+Ox3, euthymic affect Genitourinary: lennon Results & Data Vital Signs (Past 12 Hours) Vital Signs Temp Pulse Pulse Pulse Resp BP BP 05/18/19 19:30 103 H 16 91/62 L 05/18/19 19:15 108 H 19 103/58 L 05/18/19 19:02 104 H 19 107/59 L 05/18/19 19:00 105 H 17 99/61 L 05/18/19 18:00 100 H 18 100/61 05/18/19 17:45 105 H 15 92/55 L 05/18/19 17:30 108 H 21 105/57 L 05/18/19 17:15 109 H 19 110/66 05/18/19 17:00 100 H 19 101/66 05/18/19 16:45 36.8 C 99 H 16 104/53 L 05/18/19 16:40 100 H 05/18/19 16:25 36.9 C 95 H 16 97/31 L 05/18/19 16:15 37.0 C 93 H 16 109/40 L 05/18/19 16:07 37.3 C 93 H 20 113/39 L 05/18/19 16:05 36.7 C 95 H 16 118/43 L 05/18/19 15:55 36.7 C 90 16 126/43 L 05/18/19 15:52 36.8 C 84 16 125/44 L 05/18/19 15:45 36.4 C L 90 16 113/44 L 05/18/19 15:39 36.5 C 95 H 18 108/46 L 05/18/19 15:36 36.5 C 92 H 12 95/24 L 05/18/19 10:18 95 H 16 05/18/19 08:49 36.5 C 85 20 BP Pulse Ox 05/18/19 19:30 97 05/18/19 19:15 96 05/18/19 19:02 95 05/18/19 19:00 96 05/18/19 18:00 97 05/18/19 17:45 96 05/18/19 17:30 91 05/18/19 17:15 98 05/18/19 17:00 98 05/18/19 16:45 96 05/18/19 16:40 05/18/19 16:25 111/51 L 96 05/18/19 16:15 103/68 96 05/18/19 16:07 100 05/18/19 16:05 130/60 100 05/18/19 15:55 141/67 H 100 05/18/19 15:52 100 05/18/19 15:45 142/70 H 100 05/18/19 15:39 100 05/18/19 15:36 97/38 L 100 05/18/19 10:18 05/18/19 08:49 117/78 98
[2019-05-18] MEDS ORDERED: LISINOPRIL/HCTZ 20/12.5MG 1 TAB TAB PO SCH (21:00)
[2019-05-18] MEDS: DOCUSATE SODIUM/SENNA 50/8.6MG TAB PO SCH (21:13)
[2019-05-18] MEDS: CHOLECALCIFEROL 1,000 UNITS 25 MCG TAB PO SCH (21:13)
[2019-05-18] MEDS ORDERED: ALBUTEROL HFA 8 GM INHALER INH PRN (21:27)
[2019-05-18 23:35] LABS: Hematocrit (blood only) 26.2 % (42-52); Hemoglobin 9.1 g/dL (14.0-18.0)
[2019-05-19] MEDS: BEER 1 CAN PO SCH ×4 (02:06→14:32)
[2019-05-19] MEDS: OXYCODONE HCL IR 5 MG TAB (IMMEDIATE RELEASE) PO PRN ×2 (02:12→22:52)
[2019-05-19] MEDS: CEFAZOLIN 2000MG 2,000 MG/15 ML SYR IV SCH (02:12)
[2019-05-19 05:24] LABS: Basophils # (auto) 0.01 K/uL (0-0.2); Basophils % (auto) 0.1 %; Eosinophils # (auto) 0.01 K/uL (0-0.5); Eosinophils % (auto) 0.1 %; Hematocrit (blood only) 24.9 % (42-52); Hemoglobin 8.7 g/dL (14.0-18.0); Immature Granulocytes # (auto) 0.06 K/uL (0.00-0.02); Immature Granulocytes % (auto) 0.4 %; Lymphocytes # (auto) 2.89 K/uL (1.2-3.4); Lymphocytes % (auto) 19.3 %; Mean Corpuscular Hemoglobin 31.6 pg (25-34); Mean Corpuscular Hgb Conc 34.9 g/dL (32-36); Mean Corpuscular Volume 90.5 fL (80-100); Mean Platelet Volume 10.7 fL (7.4-10.4); Monocytes # (auto) 1.57 K/uL (0.11-0.59); Monocytes % (auto) 10.5 %; Neutrophils # (auto) 10.44 K/uL (1.4-6.5); Neutrophils % (auto) 69.6 %; Platelet Count 172 K/uL (130-400); RDW Coefficient of Variation 14.2 % (11.5-14.5); RDW Standard Deviation 46.5 fL (36.4-46.3); Red Blood Count 2.75 M/uL (4.7-6.1); White Blood Count 14.98 K/uL (4.8-10.8)
[2019-05-19 05:32] LABS: INR 1.2 (0.9-1.1); Prothrombin Time 11.9 Seconds (9.0-12.0)
[2019-05-19 05:54] LABS: BUN Creatinine Ratio 16.6 (10-20); Calcium 7.6 mg/dl (8.5-10.1); Creatinine Clr Calc Pharmacy 47.1 ml/min; Est GFR (Non-African American) 44.9; Magnesium 1.4 mg/dl (1.8-2.4); Phosphorus 3.4 mg/dl (2.5-4.9); Potassium 4.7 mmol/L (3.5-5.1)
[2019-05-19] MEDS: SODIUM CHLORIDE 0.9% 1000ML 1,000 ML IV SCH (06:39)
--- NOTE | 2019-05-19 07:10 | XRay Report ---
XR chest 1V portable CLINICAL HISTORY: Follow-up abnormal chest x-ray COMPARISON STUDY: 12/24/2012 FINDINGS: The heart is enlarged. There is mild central vascular prominence without evidence of overt failure. There are increased left basilar markings, statistically atelectatic. There are no large ple ural effusions. There are postsurgical changes present within the lumbar spine. IMPRESSION: 1. Cardiomegaly 2. Left basilar densities, likely atelectatic ACT 112: Negative or not required by law. Electronically signed by: Jordan Fontanez M.D. 05/19/2019 7:08 AM
--- NOTE | 2019-05-19 07:12 | Anesthesiology Progress Note ---
Date of Service May 19, 2019 Anesthesia Post Procedure Vital Signs Vital Signs: Temp Pulse Pulse Pulse Resp BP BP 05/19/19 06:00 94 H 20 98/53 L 05/19/19 05:45 94 H 20 98/56 L 05/19/19 05:30 89 16 85/50 L 05/19/19 05:15 91 H 19 100/57 L 05/19/19 05:04 93 H 21 89/54 L 05/19/19 04:45 91 H 22 99/59 L 05/19/19 04:30 91 H 18 108/52 L 05/19/19 04:15 37.1 C 90 17 113/56 L 05/19/19 04:00 91 H 18 84/51 L 05/19/19 03:57 37.1 C 94 H 22 93/52 L 05/19/19 03:45 96 H 19 77/47 L 05/19/19 03:30 91 H 23 92/50 L 05/19/19 03:15 91 H 22 107/52 L 05/19/19 03:00 92 H 25 H 100/54 L 05/19/19 02:48 95 H 21 85/48 L 05/19/19 02:15 93 H 20 103/57 L 05/19/19 02:00 91 H 20 99/54 L 05/19/19 01:45 91 H 20 94/54 L 05/19/19 01:30 93 H 19 97/63 L 05/19/19 01:15 92 H 19 97/62 L 05/19/19 01:00 91 H 20 101/53 L 05/19/19 00:45 92 H 20 92/56 L 05/19/19 00:30 93 H 18 94/52 L 05/19/19 00:15 91 H 19 89/56 L 05/19/19 00:00 36.8 C 92 H 20 93/58 L 05/18/19 23:55 91 H 05/18/19 23:45 94 H 19 90/53 L 05/18/19 23:30 90 16 100/52 L 05/18/19 23:15 94 H 21 108/60 05/18/19 23:00 94 H 20 90/55 L 05/18/19 22:45 96 H 18 90/53 L 05/18/19 22:30 98 H 18 105/62 05/18/19 22:15 95 H 19 115/59 L 05/18/19 22:00 92 H 18 95/60 L 05/18/19 21:45 95 H 19 110/69 05/18/19 21:30 100 H 16 111/68 05/18/19 21:15 98 H 15 88/54 L 05/18/19 21:00 99 H 17 94/61 L 05/18/19 20:45 100 H 17 85/56 L 05/18/19 20:30 99 H 16 111/62 05/18/19 20:26 91 H 15 121/61 05/18/19 20:20 110 H 18 65/40 L 05/18/19 20:15 102 H 20 79/46 L 05/18/19 20:00 36.7 C 104 H 17 100/54 L 05/18/19 19:45 101 H 15 98/60 L 05/18/19 19:30 103 H 16 91/62 L 05/18/19 19:15 108 H 19 103/58 L 05/18/19 19:02 104 H 19 107/59 L 05/18/19 19:00 105 H 17 99/61 L 05/18/19 18:00 100 H 18 100/61 05/18/19 17:45 105 H 15 92/55 L 05/18/19 17:30 108 H 21 105/57 L 05/18/19 17:15 109 H 19 110/66 05/18/19 17:00 100 H 19 101/66 05/18/19 16:45 36.8 C 99 H 16 104/53 L 05/18/19 16:40 100 H 05/18/19 16:25 36.9 C 95 H 16 97/31 L 05/18/19 16:15 37.0 C 93 H 16 109/40 L 05/18/19 16:07 37.3 C 93 H 20 113/39 L 05/18/19 16:05 36.7 C 95 H 16 118/43 L 05/18/19 15:55 36.7 C 90 16 126/43 L 05/18/19 15:52 36.8 C 84 16 125/44 L 05/18/19 15:45 36.4 C L 90 16 113/44 L 05/18/19 15:39 36.5 C 95 H 18 108/46 L 05/18/19 15:36 36.5 C 92 H 12 95/24 L 05/18/19 10:18 95 H 16 05/18/19 08:49 36.5 C 85 20 BP Pulse Ox 05/19/19 06:00 95 05/19/19 05:45 93 05/19/19 05:30 96 05/19/19 05:15 96 05/19/19 05:04 96 05/19/19 04:45 95 05/19/19 04:30 95 05/19/19 04:15 96 05/19/19 04:00 95 05/19/19 03:57 97 05/19/19 03:45 98 05/19/19 03:30 95 05/19/19 03:15 95 05/19/19 03:00 95 05/19/19 02:48 97 05/19/19 02:15 97 05/19/19 02:00 95 05/19/19 01:45 94 05/19/19 01:30 94 05/19/19 01:15 94 05/19/19 01:00 93 05/19/19 00:45 94 05/19/19 00:30 94 05/19/19 00:15 95 05/19/19 00:00 93 05/18/19 23:55 05/18/19 23:45 96 05/18/19 23:30 95 05/18/19 23:15 94 05/18/19 23:00 94 05/18/19 22:45 95 05/18/19 22:30 94 05/18/19 22:15 94 05/18/19 22:00 95 05/18/19 21:45 96 05/18/19 21:30 96 05/18/19 21:15 94 05/18/19 21:00 95 05/18/19 20:45 95 05/18/19 20:30 96 05/18/19 20:26 98 05/18/19 20:20 97 05/18/19 20:15 96 05/18/19 20:00 95 05/18/19 19:45 96 05/18/19 19:30 97 05/18/19 19:15 96 05/18/19 19:02 95 05/18/19 19:00 96 05/18/19 18:00 97 05/18/19 17:45 96 05/18/19 17:30 91 05/18/19 17:15 98 05/18/19 17:00 98 05/18/19 16:45 96 05/18/19 16:40 05/18/19 16:25 111/51 L 96 05/18/19 16:15 103/68 96 05/18/19 16:07 100 05/18/19 16:05 130/60 100 05/18/19 15:55 141/67 H 100 05/18/19 15:52 100 05/18/19 15:45 142/70 H 100 05/18/19 15:39 100 05/18/19 15:36 97/38 L 100 05/18/19 10:18 05/18/19 08:49 117/78 98 Pain Intensity Buttock: Pain Intensity: 4 Notes Mental Status: alert / awake / arousable and participated in evaluation Nausea / Vomiting: adequately controlled Pain: adequately controlled Airway Patency, RR, SpO2: stable & adequate BP & HR: stable & adequate Hydration State: stable & adequate Anesthetic Complications: Pt Satisfied with anesthetic care
[2019-05-19] MEDS ORDERED: ASPIRIN 81 MG ECTAB PO SCH (09:00)
[2019-05-19] MEDS: POLYETHYLENE (MIRALAX) 17 GM PACK PO SCH ×2 (09:04→12:09)
[2019-05-19] MEDS: dilTIAZem HCL 120 MG CAPCR PO SCH (09:05)
[2019-05-19] MEDS: ATORVASTATIN 20 MG TAB PO SCH (09:05)
--- NOTE | 2019-05-19 09:37 | Hospitalist Progress Note ---
Date of Service May 19, 2019 Assessment & Plan (1) Acute blood loss as cause of postoperative anemia: (2) Hypotension: (3) Status post lumbar surgery: Post op day# 1 S/P T11-S1 decompression and fusion by Dr Shital EARL #2000ml Hgb dropped to 9.1 from Hgb 14 pre-op Was transfused 3 units PRBCs, 2 units FFP, and received tranexamic acid Hypotensive. Required ICU and phenylephrine Today Hgb: 8.7 Total MELISSA drain output #565ml Managed by business planning manager Continued on phenylephrine currently at 0.15mcg/kg/min per business planning manager with BP 91/48, P: 109 this morning IVF at 150ml/hr Pain management per ortho Wound management per ortho PT/OT as appropriate when able DVT prophylaxis - SCDs Incentive spirometry Continue to monitor H&H and transfuse as needed (4) Diabetes mellitus, type II: A1c: 7.8 on 05/05/19 -Hold metformin -Glycemic control per ICU protocol (5) Hypertension: Currently hypotensive requiring phenylephrine -Holding lisinopril/HCTZ -Received Diltiazem today (6) Hyperlipidemia: -Continue atorvastatin (7) CKD (chronic kidney disease): Cr: 1.5. Baseline ~1.4 -Monitor renal functions -Avoid nephrotoxic agents when possible (8) Tobacco use: -Smoking cessation encouraged -Nicotine patch (9) Alcohol use: -1 can beer Q4H per business planning manager -Monitor for withdrawal symptoms DVT Prophylaxis -SCDs Full Code as per discussion with pt Follows with Dr Kincaid for routine care Pt was seen and care coordinated with Dr Alfaro. See addendum Supervising Physician Co-Signing Physician Notes I have seen and examined the patient and have discussed the case with the provider above. I agree with the assessment and plan as stated with thefollowing exceptions. 73 yo M with hemorrhagic shock 2/2 acute blood loss intraoperatively. He is on aspirin and reportedly did not hold it pre- operatively. We have been consulted for assistance with medical management post-operatively. He has received 3 units of blood and 2 units of FFP with TXA overnight and was managed with phenylephrine and fluid resuscitation until this morning. He is now off pressor support and remains slightly tachycardic with a BP consistently in the 90s. He is feeling well overall with his post-operative pain well managed with oxycodone. He is not looking forward to bearing weight as he is concerned this will cause pain. He is a smoker and is requesting a nicotine patch. Additionally, he reports using only 3-4 beers 1-2 days per week. He doubts he will have any issues with alcohol withdrawal. Physical exam reveals wheezing in his lungs R>L nazanin at the bases, normal heart exam without edema, some sensation loss in the whole foot bilaterally, a nondistended, protuberant abdomen with no pain or guarding to palpation. Herbert is in place with a dark yellow urine present. SCDs in place. Well-appearing and eating dinner when I walked in. Cont plan as above and will transfer to the medical floor for 24 hours. In my experience, overresuscitation may appear within 24-48 hours. After this time has passed and he is stable, would move him to the Ortho floor until discharge. Will cont to hold metformin and control blood sugar with basal bolus insulin (correction factor and carb coverage). Otherwise, cont all current medications. Ativan PRN withdrawal symptoms. Neb treatments PRN wheezing or SOB. Dominic, Subjective Pt seen and examined. Sitting up in bed in good spirits. S/P POD#1 T11-S1 decompression and fusion. Had EBL#2000ml intraoperatively and received 3 units PRBC's, 2 units FFP, tranexamic acid and currently in ICU for hypotension on phenylephrine. Denies dizziness, SOB at rest. C/O mild back pain. Reports legs feel improved from pre-op with no significant pain or paresthesias currently. States good appetite this morning. No BM yet. Reports heavily smokes pipe and has chronic wheezing which is worse in the winter. He states would like to stop smoking and is inquiring about nicotine patch. Denies fever/chills, diaphoresis, N/V, AGRAWAL, vision changes, neck pain, CP, orthopnea, palpitations, cough, sore throat, choking, otalgia, rhinorrhea, abdominal pain, extremity edema, rashes, urinary symptoms. Review of Systems Review of Systems: All systems reviewed & are unremarkable except as noted in HPI & below Physical Exam Physical Exam: General: no acute distress, obese Head: normocephalic, atraumatic Eyes: conjunctiva non-injected, anicteric ENT: normal inspection external ears, nose, mucous membranes moist Neck: supple, trachea midline Lungs: no respiratory distress,+ wheezing throughout, no rhonchi/rales CV: Rate: 102, regular rhythm, no pretibial edema Abd: normal BS, soft, non-tender Back: Drains in place with serosanguineous drainage Ext: no cyanosis, no calf tenderness, pedal pushes and pulls intact bilaterally, distal pulses intact, sensation to light touch intact Neuro: A&O x 3, no focal deficits noted, normal affect Skin: warm, dry Results & Data Vital Signs (Past 12 Hours) Vital Signs Temp Pulse Resp BP Pulse Ox 05/19/19 09:16 103 H 23 95 05/19/19 09:15 106 H 25 H 85/54 L 98 05/19/19 09:01 109 H 11 L 91/48 L 94 05/19/19 09:00 113 H 20 88 L 05/19/19 08:46 104 H 21 95 05/19/19 08:45 105 H 19 99/52 L 96 05/19/19 08:31 115 H 26 H 94 05/19/19 08:30 115 H 20 104/56 L 97 05/19/19 08:16 102 H 17 97 05/19/19 08:15 100 H 19 118/61 95 05/19/19 08:06 104 H 19 116/62 97 05/19/19 08:00 115 H 119/60 05/19/19 07:46 100 H 22 95 05/19/19 07:45 97 H 20 106/58 L 94 05/19/19 07:31 94 H 17 99 05/19/19 07:30 99 H 20 92/57 L 95 05/19/19 07:16 94 H 16 97 05/19/19 07:15 94 H 20 106/59 L 95 05/19/19 07:01 93 H 19 95 05/19/19 07:00 96 H 21 90/52 L 94 05/19/19 06:46 94 H 20 96 05/19/19 06:45 94 H 15 100/60 96 05/19/19 06:00 94 H 20 98/53 L 95 05/19/19 05:45 94 H 20 98/56 L 93 05/19/19 05:30 89 16 85/50 L 96 05/19/19 05:15 91 H 19 100/57 L 96 05/19/19 05:04 93 H 21 89/54 L 96 05/19/19 04:45 91 H 22 99/59 L 95 05/19/19 04:30 91 H 18 108/52 L 95 05/19/19 04:15 37.1 C 90 17 113/56 L 96 05/19/19 04:00 91 H 18 84/51 L 95 05/19/19 03:57 37.1 C 94 H 22 93/52 L 97 05/19/19 03:45 96 H 19 77/47 L 98 05/19/19 03:30 91 H 23 92/50 L 95 05/19/19 03:15 91 H 22 107/52 L 95 05/19/19 03:00 92 H 25 H 100/54 L 95 05/19/19 02:48 95 H 21 85/48 L 97 05/19/19 02:15 93 H 20 103/57 L 97 05/19/19 02:00 91 H 20 99/54 L 95 05/19/19 01:45 91 H 20 94/54 L 94 05/19/19 01:30 93 H 19 97/63 L 94 05/19/19 01:15 92 H 19 97/62 L 94 05/19/19 01:00 91 H 20 101/53 L 93 05/19/19 00:45 92 H 20 92/56 L 94 05/19/19 00:30 93 H 18 94/52 L 94 05/19/19 00:15 91 H 19 89/56 L 95 05/19/19 00:00 36.8 C 92 H 20 93/58 L 93 05/18/19 23:55 91 H 05/18/19 23:45 94 H 19 90/53 L 96 05/18/19 23:30 90 16 100/52 L 95 05/18/19 23:15 94 H 21 108/60 94 05/18/19 23:00 94 H 20 90/55 L 94 05/18/19 22:45 96 H 18 90/53 L 95 05/18/19 22:30 98 H 18 105/62 94 05/18/19 22:15 95 H 19 115/59 L 94 05/18/19 22:00 92 H 18 95/60 L 95 05/18/19 21:45 95 H 19 110/69 96 Laboratory Results Short CBC 05/18/19 05/18/19 05/18/19 Range/Units 14:00 15:50 19:04 WBC 16.52 H 17.50 H (4.8-10.8) K/uL Hgb 11.6 L 10.6 L 9.8 L (14.0-18.0) g/dL Hct 33.9 L 30.9 L 28.0 L (42-52) % Plt Count 205 191 (130-400) K/uL 05/18/19 05/19/19 Range/Units 23:24 05:11 WBC 14.98 H (4.8-10.8) K/uL Hgb 9.1 L 8.7 L (14.0-18.0) g/dL Hct 26.2 L 24.9 L (42-52) % Plt Count 172 (130-400) K/uL BMP 05/18/19 05/19/19 19:04 05:11 Sodium 138 135 L Potassium 4.9 4.7 Chloride 108 H 108 H Carbon Dioxide 24 23 BUN 27 H 25 H Creatinine 1.44 H 1.51 H Glucose 201 H 197 H Calcium 8.0 L 7.6 L Liver Function 05/18/19 Range/Units 19:04 Total Bilirubin 1.1 H (0.2-1) mg/dl AST 42 H (15-37) U/L ALT 44 (12-78) U/L Alkaline Phosphatase 37 L (45-117) U/L Albumin 3.2 L (3.4-5.0) gm/dl Diagnostic Findings CXR: IMPRESSION: 1. Cardiomegaly 2. Left basilar densities, likely atelectatic
--- NOTE | 2019-05-19 09:55 | Orthopedic Progress Note ---
Date of Service May 19, 2019 Subjective Back pain well controlled. He is denying any leg pain. Physical Exam Physical Exam: Patient is alert and oriented. Is excellent strength testing the lower extremities. Results & Data Vital Signs (Past 12 Hours) Vital Signs Temp Pulse Resp BP Pulse Ox 05/19/19 09:16 103 H 23 95 05/19/19 09:15 106 H 25 H 85/54 L 98 05/19/19 09:01 109 H 11 L 91/48 L 94 05/19/19 09:00 113 H 20 88 L 05/19/19 08:46 104 H 21 95 05/19/19 08:45 105 H 19 99/52 L 96 05/19/19 08:31 115 H 26 H 94 05/19/19 08:30 115 H 20 104/56 L 97 05/19/19 08:16 102 H 17 97 05/19/19 08:15 100 H 19 118/61 95 05/19/19 08:06 104 H 19 116/62 97 05/19/19 08:00 115 H 119/60 05/19/19 07:46 100 H 22 95 05/19/19 07:45 97 H 20 106/58 L 94 05/19/19 07:31 94 H 17 99 05/19/19 07:30 99 H 20 92/57 L 95 05/19/19 07:16 94 H 16 97 05/19/19 07:15 94 H 20 106/59 L 95 05/19/19 07:01 93 H 19 95 05/19/19 07:00 96 H 21 90/52 L 94 05/19/19 06:46 94 H 20 96 05/19/19 06:45 94 H 15 100/60 96 05/19/19 06:00 94 H 20 98/53 L 95 05/19/19 05:45 94 H 20 98/56 L 93 05/19/19 05:30 89 16 85/50 L 96 05/19/19 05:15 91 H 19 100/57 L 96 05/19/19 05:04 93 H 21 89/54 L 96 05/19/19 04:45 91 H 22 99/59 L 95 05/19/19 04:30 91 H 18 108/52 L 95 05/19/19 04:15 37.1 C 90 17 113/56 L 96 05/19/19 04:00 91 H 18 84/51 L 95 05/19/19 03:57 37.1 C 94 H 22 93/52 L 97 05/19/19 03:45 96 H 19 77/47 L 98 05/19/19 03:30 91 H 23 92/50 L 95 05/19/19 03:15 91 H 22 107/52 L 95 05/19/19 03:00 92 H 25 H 100/54 L 95 05/19/19 02:48 95 H 21 85/48 L 97 05/19/19 02:15 93 H 20 103/57 L 97 05/19/19 02:00 91 H 20 99/54 L 95 05/19/19 01:45 91 H 20 94/54 L 94 05/19/19 01:30 93 H 19 97/63 L 94 05/19/19 01:15 92 H 19 97/62 L 94 05/19/19 01:00 91 H 20 101/53 L 93 05/19/19 00:45 92 H 20 92/56 L 94 05/19/19 00:30 93 H 18 94/52 L 94 05/19/19 00:15 91 H 19 89/56 L 95 05/19/19 00:00 36.8 C 92 H 20 93/58 L 93 05/18/19 23:55 91 H 05/18/19 23:45 94 H 19 90/53 L 96 05/18/19 23:30 90 16 100/52 L 95 05/18/19 23:15 94 H 21 108/60 94 05/18/19 23:00 94 H 20 90/55 L 94 05/18/19 22:45 96 H 18 90/53 L 95 05/18/19 22:30 98 H 18 105/62 94 05/18/19 22:15 95 H 19 115/59 L 94 05/18/19 22:00 92 H 18 95/60 L 95
[2019-05-19] MEDS ORDERED: ICU PROTOCOL FOR HYPERGLYCEMIA PRN (10:13)
[2019-05-19] MEDS ORDERED: TRANEXAMIC ACID / 0.7% NACL 1,000 MG/100 ML BAG IV STA (11:02)
[2019-05-19] MEDS: PHENYLEPHRINE HCL 20 MG in DEXTROSE 5% 500 ML IV SCH (11:31)
[2019-05-19] MEDS: MAGNESIUM OXIDE 400 MG TAB PO SCH ×2 (11:55→21:41)
[2019-05-19] MEDS: NICOTINE 21 MG/24 HR TDSY TD SCH ×2 (12:09→16:45)
[2019-05-19] MEDS ORDERED: GLUCAGON FOR INJ 1 MG VIAL SQ PRN (18:15)
[2019-05-19] MEDS ORDERED: CARBOHYDRATES FOR HYPOGLYCEMIA PO PRN (18:15)
[2019-05-19] MEDS ORDERED: DEXTROSE 50% 50 ML SYRINGE IV PRN (18:15)
[2019-05-19] MEDS ORDERED: GLUCOSE 10 TABS/TUBE PO PRN (18:15)
[2019-05-19] MEDS ORDERED: GLUCOSE 40% GEL 15 GM TUBE PO PRN (18:15)
[2019-05-19] MEDS ORDERED: ALBUT/IPRATROP 3MG/0.5MG NEB 3 ML VIAL NEB PRN (18:15)
--- NOTE | 2019-05-19 20:44 | Communication Note ---
Date of Service: May 19, 2019 Patient having decrease drainage from surgical site, given additional dose of TXA. We were eventually able to wean off the vasoactive medications. He has been tolerating his liquid diet. I discussed this case with Dr. Isaacs as well as Dr. Alfaro he is stable for downgrade out of the ICU.
[2019-05-19] MEDS: INSULIN ASPART 100 UNITS/ML 3 ML PEN SC SCH (20:51)
[2019-05-19] MEDS: INSULIN GLARGINE SOLOSTAR 100 UNITS/ML 3 ML PEN SC SCH (20:51)
[2019-05-19] MEDS: CHOLECALCIFEROL 1,000 UNITS 25 MCG TAB PO SCH (20:52)
[2019-05-19] MEDS: DOCUSATE SODIUM/SENNA 50/8.6MG TAB PO SCH (21:40)
[2019-05-19] MEDS ORDERED: FUROSEMIDE 10 MG in SYRINGE 0 ML IV ONE (22:00)
[2019-05-20 07:48] LABS: Hematocrit (blood only) 24.2 % (42-52); Hemoglobin 8.3 g/dL (14.0-18.0); Mean Corpuscular Hemoglobin 31.6 pg (25-34); Mean Corpuscular Hgb Conc 34.3 g/dL (32-36); Mean Platelet Volume 10.5 fL (7.4-10.4); Platelet Count 146 K/uL (130-400); RDW Coefficient of Variation 13.7 % (11.5-14.5); RDW Standard Deviation 45.8 fL (36.4-46.3); Red Blood Count 2.63 M/uL (4.7-6.1); White Blood Count 12.78 K/uL (4.8-10.8)
[2019-05-20 08:08] LABS: Estimated Average Glucose 154 mg/dl
[2019-05-20 08:18] LABS: BUN Creatinine Ratio 17.4 (10-20); Calcium 8.3 mg/dl (8.5-10.1); Creatinine Clr Calc Pharmacy 55.4 ml/min; Est GFR (African American) 60.6; Est GFR (Non-African American) 52.3
[2019-05-20] MEDS: dilTIAZem HCL 120 MG CAPCR PO SCH (08:50)
[2019-05-20] MEDS: NICOTINE 21 MG/24 HR TDSY TD SCH (08:50)
[2019-05-20] MEDS: ATORVASTATIN 20 MG TAB PO SCH (08:50)
[2019-05-20] MEDS: INSULIN ASPART 100 UNITS/ML 3 ML PEN SC SCH ×4 (08:52→21:02)
[2019-05-20] MEDS ORDERED: MAGNESIUM SULFATE 50% 4 GM in SODIUM CHLORIDE 0.9% 500 ML IV SCH (09:15)
--- NOTE | 2019-05-20 09:27 | Hospitalist Progress Note ---
Date of Service May 20, 2019 Assessment & Plan (1) Acute blood loss as cause of postoperative anemia: (2) Hypotension: (3) Status post lumbar surgery: Hypovolemic shock resolved Post op day# 2 S/P T11-S1 decompression and fusion by Dr Shital EARL #2000ml. Hgb dropped to 9.1 from Hgb 14 pre-op. Was transfused 3 units PRBCs, 2 units FFP, and received tranexamic acid on 05/18/19. Was Hypotensive and required ICU and phenylephrine 05/19/19 was pressors discontinued and BP's stable and was transferred to tele floor Today Hgb: 8.3. Total MELISSA drain past 24 hours output #60ml Pain management per ortho Wound management per ortho PT/OT as appropriate when able DVT prophylaxis - SCDs Incentive spirometry Continue to monitor H&H and transfuse as needed (4) Fluid overload: 05/19/19 pt with noted edema hands/fingers. Lasix 10mg IV given. Pt diu resed 1000ml overnight Improved edema today, but with noted rhonchi bases Will obtain CXR now If signs of fluid overload on CXR and BP's stable will plan to given additional dose IV lasix May consider restarting HCTZ if vitals allow (5) Diabetes mellitus, type II: A1c: 7.8 on 05/05/19 -Hold metformin -Basal bolus insulin (6) Hypertension: BP: 135/76 this am -Continue diltiazem -Holding lisinopril/HCTZ -Pending CXR and if BPs continue to be stable plan to resume lisinopril/HCTZ (7) Hyperlipidemia: -Continue atorvastatin (8) CKD (chronic kidney disease): Cr: 1.3. Baseline ~1.4 -Monitor renal functions -Avoid nephrotoxic agents when possible (9) Tobacco use: -Smoking cessation encouraged -Nicotine patch (10) Alcohol use: Pt reports drinks couple drinks 2 times a week -No significant worry for withdrawal DVT Prophylaxis -SCDs Follows with Dr Kincaid for routine care Pt was seen and care coordinated with Dr Alfaro. See addendum Supervising Physician Co-Signing Physician Notes I have seen and examined the patient and have discussed the case with the provider above. I agree with the assessment and plan as stated with the following exceptions. 73 yo M with a recent lumbar decompression and fusion who reportedly took aspirin up until the time of surgery and suffered hemorrhagic shock intraoperatively requiring a short stay in the ICU for pressor support and resuscitation with blood products. He is doing well today reporting the pain continue to improve in his back. He reports having a BM today, and is requesting additional Lasix for his hand swelling after resuscitation. This was given again this evening. Physical exam is consistent with that lsited above. Cont neb treatments for wheezing. No cough or other respiratory symptoms are present. Cont Nicoderm patch. Cont additional plan as above. Thank you for this consultation. DO Dominic Subjective Pt seen and examined sitting up in bed. S/P POD#2 T11-S1 decompression and fusion. Had EBL#2000ml intraoperatively and received 3 units PRBC's, 2 units FFP, tranexamic acid on 05/18/19. Was transferred out of ICU yesterday evening. Has been off of pressors and BP's stable. Pt c/o some wheezing and feeling of chest congestion. Had dose Lasix last night and diuresed 1000ml. Pt states was able to sleep supine last night and reports slept well. This morning feels a little SOB with lying supine. Feels his hand are a little less swollen this morning. C/O constipation and abdominal bloating. Denies fever/chills, diaphoresis, N/V, AGRAWAL, dizziness, syncope, vision changes, neck pain, CP, palpitations, cough, sore throat, choking, otalgia, rhinorrhea, abdominal pain, paresthesias, weakness, extremity weakness, rashes. Review of Systems Review of Systems: All systems reviewed & are unremarkable except as noted in HPI & below Physical Exam Physical Exam: General: no acute distress, obese Head: normocephalic, atraumatic Eyes: conjunctiva non-injected, anicteric ENT: normal inspection external ears, nose, mucous membranes moist Neck: supple, trachea midline Lungs: no respiratory distress,+ wheezing throughout, + rhonchi at bases CV: Rate: 102, regular rhythm, no pretibial edema, some edema noted of fingers bilaterally Abd: normal BS, soft, non-tender Back: MELISSA Drain in place with serosanguineous drainage; dressing intact and dry Ext: no cyanosis, no calf tenderness, pedal pushes and pulls intact bilaterally, distal pulses intact, sensation to light touch intact Neuro: A&O x 3, no focal deficits noted, normal affect Skin: warm, dry Results & Data Vital Signs (Past 12 Hours) Vital Signs Temp Pulse Pulse Resp BP Pulse Ox 05/20/19 07:30 103 H 05/20/19 07:00 37.2 C 102 H 20 135/76 93 05/20/19 03:05 37 C 99 H 20 115/66 92 05/19/19 23:34 107 H 05/19/19 23:01 37.0 C 105 H 18 117/61 97 Laboratory Results Short CBC 05/20/19 Range/Units 07:22 WBC 12.78 H (4.8-10.8) K/uL Hgb 8.3 L (14.0-18.0) g/dL Hct 24.2 L (42-52) % Plt Count 146 (130-400) K/uL BMP 05/20/19 07:22 Sodium 133 L Potassium 4.0 Chloride 102 Carbon Dioxide 26 BUN 23 H Creatinine 1.33 Glucose 167 H Calcium 8.3 L
[2019-05-20] MEDS ORDERED: COUGH DROP (SUGAR FREE) LOZ 24 LOZ/1 BOX BUCCAL ONE (10:36)
--- NOTE | 2019-05-20 12:13 | XRay Report ---
SINGLE VIEW CHEST CLINICAL HISTORY: Dyspnea. FINDINGS: 2 AP, portable, upright chest radiographs are compared to study dated 05/19/2009. The examin ation is degraded by portable technique and patient rotation. The heart is mildly enlarged. The pul monary vasculature is noncongested. Left basilar opacities are unchanged and likely represent scarrin g/atelectasis. There is no large pleural effusion or pneumothorax. The skeletal structures are osteop enic. Degenerative change is noted in the thoracic spine. Fusion hardware is noted the thoracolumbar junction. The bone thorax is grossly intact. IMPRESSION: 1. Mild cardiac enlargement without radiographic evidence of congestive failure. 2. Left basilar opacities are unchanged and likely represent scarring/atelectasis. Clinical correlati on will be required. ACT 112: Negative or not required by law. Electronically signed by: Antwan Thomson M.D. 05/20/2019 12:12 PM
--- NOTE | 2019-05-20 13:44 | Orthopedic Progress Note ---
Date of Service May 20, 2019 Assessment & Plan (1) Neurogenic claudication due to lumbar spinal stenosis: This time we will slowly initiate physical therapy and ambulation as tolerated. Maintain the MELISSA drain for now. Anticipate discharge to rehab nursing facility early next week. Present on Admission?: Yes Subjective Patient's back pain is controlled leg symptoms improved. Physical Exam Physical Exam: On exam he is ambulating to the bathroom with assistance. He did have some hypotensive episodes. But he does have excellent strength testing lower extremities. Results & Data Vital Signs (Past 12 Hours) Vital Signs Temp Pulse Pulse Resp BP Pulse Ox 05/20/19 11:38 106 H 93/57 L 05/20/19 11:37 106 H 106/98 98 05/20/19 11:36 109 H 156/76 H 96 05/20/19 11:35 92 H 131/72 05/20/19 11:34 112 H 122/61 96 05/20/19 11:32 103 H 108/65 96 05/20/19 10:52 37.3 C 104 H 18 146/73 H 95 05/20/19 07:30 103 H 05/20/19 07:00 37.2 C 102 H 20 135/76 93 05/20/19 03:05 37 C 99 H 20 115/66 92
[2019-05-20] MEDS ORDERED: FUROSEMIDE 10 MG in SYRINGE 0 ML IV ONE (18:30)
[2019-05-20] MEDS: ALBUT/IPRATROP 3MG/0.5MG NEB 3 ML VIAL NEB SCH (19:20)
[2019-05-20] MEDS: DOCUSATE SODIUM/SENNA 50/8.6MG TAB PO SCH (21:01)
[2019-05-20] MEDS: INSULIN GLARGINE SOLOSTAR 100 UNITS/ML 3 ML PEN SC SCH (21:01)
[2019-05-20] MEDS: MAGNESIUM OXIDE 400 MG TAB PO SCH (21:01)
[2019-05-20] MEDS: CHOLECALCIFEROL 1,000 UNITS 25 MCG TAB PO SCH (21:01)
[2019-05-20] MEDS: TRAMADOL HCL 50 MG TABLET PO PRN (22:10)
[2019-05-21 06:38] LABS: Hematocrit (blood only) 23.4 % (42-52); Hemoglobin 8.1 g/dL (14.0-18.0); Mean Corpuscular Hemoglobin 32.1 pg (25-34); Mean Corpuscular Hgb Conc 34.6 g/dL (32-36); Mean Corpuscular Volume 92.9 fL (80-100); Mean Platelet Volume 10.3 fL (7.4-10.4); Platelet Count 165 K/uL (130-400); RDW Coefficient of Variation 13.3 % (11.5-14.5); RDW Standard Deviation 44.9 fL (36.4-46.3); Red Blood Count 2.52 M/uL (4.7-6.1)
[2019-05-21] MEDS: ALBUT/IPRATROP 3MG/0.5MG NEB 3 ML VIAL NEB SCH ×3 (06:56→19:16)
[2019-05-21 07:05] LABS: BUN Creatinine Ratio 17.3 (10-20); Creatinine Clr Calc Pharmacy 66.4 ml/min; Est GFR (African American) 75.4; Est GFR (Non-African American) 65.1; Magnesium 2.2 mg/dl (1.8-2.4); Potassium 4.1 mmol/L (3.5-5.1)
[2019-05-21] MEDS: INSULIN ASPART 100 UNITS/ML 3 ML PEN SC SCH ×4 (08:24→21:06)
[2019-05-21] MEDS: LISINOPRIL/HCTZ 20/12.5MG 1 TAB TAB PO SCH (08:27)
[2019-05-21] MEDS: NICOTINE 21 MG/24 HR TDSY TD SCH (08:28)
[2019-05-21] MEDS: dilTIAZem HCL 120 MG CAPCR PO SCH (08:28)
[2019-05-21] MEDS: ATORVASTATIN 20 MG TAB PO SCH (08:28)
[2019-05-21] MEDS: TRAMADOL HCL 50 MG TABLET PO PRN (08:34)
--- NOTE | 2019-05-21 08:53 | Orthopedic Progress Note ---
Date of Service May 21, 2019 Assessment & Plan (1) Neurogenic claudication due to lumbar spinal stenosis: Patient stable status post thoracolumbar decompression fusion. We will continue with ambulation and gait training. Continue GI DVT prophylaxis and pain control. He is set to be sent to rehabilitation once a bed is available and has met medical criteria. Subjective Patient is doing well post surgery and 3. His pain is relatively well contr olled. He still has some soreness in the back itself the legs are improving. He has been ambulating with physical therapy. He has no other complaints at this point. Physical Exam Physical Exam: On exam he is alert and oriented. His abdomen soft nontender his calves are supple nontender. Dressing is clean dry intact MELISSA drains in place and holding suction. Results & Data Vital Signs (Past 12 Hours) Vital Signs Temp Pulse Pulse Resp BP Pulse Ox 05/21/19 07:53 36.9 C 87 20 120/70 99 05/21/19 07:39 87 05/21/19 06:56 88 18 94 05/21/19 04:00 37.3 C 86 20 122/74 93 05/21/19 00:00 101 H 05/20/19 23:00 37.1 C 99 H 20 121/70 92
--- NOTE | 2019-05-21 11:54 | Hospitalist Progress Note ---
Date of Service May 21, 2019 Assessment & Plan (1) Postoperative state: Status post lumbar decompression and fusion on 05/18 (2) Spinal stenosis: Status post lumbar decompression and fusion on 05/18 (3) Postoperative hypovolemic shock: resolved. (4) Acute blood loss as cause of postoperative anemia: Hemoglobin remained stable post resuscitation. Continue to monitor. (5) Hypertension: Lisinopril/HCTZ was restarted at this time. Continue Cardizem per home regimen. (6) Diabetes mellitus, type II: Uncontrolled A1c at baseline which is 7.8. Holding metformin and continue with basal bolus insulin. Slightly off andrew with some elevated sugars above 200. Will change Lantus to 15 units twice daily instead of once at night. We will also increase correction factor to 20 units per 7 g of carbs. Continue to monitor. (7) Hyperlipidemia: -Continue atorvastatin per home regimen (8) CKD (chronic kidney disease): At baseline, continue to monitor renal function intermittently and avoid n ephrotoxic substances when able. (9) Tobacco use: Smoking cessation strongly encouraged. NicoDerm patch daily given. (10) DVT prophylaxis: SCDs/ambulation. Chemoprophylaxis is relatively contraindicated in the setting of significant hemorrhagic anemia causing shock recently with persistent anemia. Defer ultimate decision to orthopedics Full code Disposition-transfer to medical surgical Ortho floor for continued care prior to discharge. Consuelo Alfaro DO [facility] Hospitalist Subjective Doing well postop day 3. Patient denies a bowel movement today and is requesting milk of magnesia. His pain is progressively getting better and he was up and ambulating this morning with little difficulty. His hands feel less swollen today and he is tolerating p.o. No other symptoms at this time. Review of Systems Review of Systems: All systems reviewed & are unremarkable except as noted in HPI & below Physical Exam Physical Exam: CONSTITUTIONAL: obese, vitals as above, generally well- appearing EYES: normal conjunctivae, no scleral icterus ENT: MMM RESPIRATORY: clear to auscultation bilaterally, no crackles, rales or wheezes, normal respiratory effort CARDIOVASCULAR: regular rate and rhythm, S1 and 2 heard without murmurs, gallops or rubs, no JVD, no peripheral edema GASTROINTESTINAL: soft, nontender, nondistended, protuberant. MUSCULOSKELETAL: strength in lower extremities was not assessed 2/2 pain, otherwise moving all extremities well. Head is normocephalic and atraumatic SKIN: warm and dry, back incision covered with gauze that is c/d/i NEUROLOGIC: CN 2-12 grossly intact, no sensory deficit, normal cognition, no gross focal deficits. PSYCHIATRIC: alert cooperative and oriented to person, place and time. Results & Data Vital Signs (Past 12 Hours) Vital Signs Temp Pulse Pulse Resp BP Pulse Ox 05/21/19 11:18 37.0 C 92 H 20 99/59 L 93 05/21/19 07:53 36.9 C 87 20 120/70 99 05/21/19 07:39 87 05/21/19 06:56 88 18 94 05/21/19 04:00 37.3 C 86 20 122/74 93 05/21/19 00:00 101 H Laboratory Results Short CBC 05/21/19 Range/Units 06:03 WBC 12.00 H (4.8-10.8) K/uL Hgb 8.1 L (14.0-18.0) g/dL Hct 23.4 L (42-52) % Plt Count 165 (130-400) K/uL BMP 05/21/19 06:03 Sodium 134 L Potassium 4.1 Chloride 103 Carbon Dioxide 27 BUN 19 H Creatinine 1.11 Glucose 133 H Calcium 8.0 L Medications Administered Current Inpatient Medications Acetaminophen (Tylenol) 1,000 mg PO Q8H PRN PRN Reason: MILD Pain Rating 1,2,3 Stop: 06/17/19 16:36 Al Hydrox/Mg Hydrox/Simethicone (Maalox) 30 ml PO Q6H PRN PRN Reason: Dyspepsia Stop: 06/17/19 16:36 Albuterol (Ventolin Hfa) 4 puffs INH Q4R PRN PRN Reason: Wheezing Stop: 06/17/19 22:59 Albuterol (Duoneb) 3 ml NEB TID [facility] Stop: 05/22/19 14:01 Last Admin: 05/21/19 06:56 Dose: 3 ml Documented by: Atorvastatin Calcium (Lipitor) 20 mg PO QAM [facility] Stop: 06/18/19 08:59 Last Admin: 05/21/19 08:28 Dose: 20 mg Documented by: Bisacodyl (Dulcolax) 10 mg CO DAILY PRN PRN Reason: Constipation Stop: 06/17/19 16:36 Last Admin: 05/20/19 10:06 Dose: 10 mg Documented by: Dextrose (Dextrose 50%) 25 - 50 ml IV UD PRN; Protocol PRN Reason: Hypoglycemia Protocol Stop: 06/18/19 18:14 Diltiazem HCl (Cardizem Cd) 120 mg PO [facility] Stop: 06/18/19 08:59 Last Admin: 05/21/19 08:28 Dose: 120 mg Documented by: Diphenhydramine HCl (Benadryl Capsule) 25 mg PO Q6H PRN PRN Reason: Allergic Rhinitis/Insomnia Stop: 06/17/19 16:36 Famotidine (Pepcid) 20 mg PO Q12H PRN PRN Reason: Dyspepsia Stop: 06/17/19 16:36 Glucagon (Glucagen) 1 mg SQ UD PRN; Protocol PRN Reason: Hypoglycemia Protocol Stop: 06/18/19 18:14 Glucose (Dex4 Glucose) 4 - 8 tabs PO UD PRN; Protocol PRN Reason: Hypoglycemia Protocol Stop: 06/18/19 18:14 Glucose (Glucose 40%) 15 - 30 gm PO UD PRN; Protocol PRN Reason: Hypoglycemia Protocol Stop: 06/18/19 18:14 Lisinopril/HCTZ (Prinzide 20/12.5mg) 1 tab PO [facility] Stop: 06/20/19 08:59 Last Admin: 05/21/19 08:27 Dose: 1 tab Documented by: Hydromorphone HCl (Dilaudid) 0.5 mg IV Q3H PRN PRN Reason: moderate pain (scale 4-6) Stop: 06/01/19 16:36 Hydromorphone HCl (Dilaudid) 1 mg IV Q3H PRN PRN Reason: severe pain (scale 7-10) Stop: 06/01/19 16:36 Hydroxyzine HCl (Vistaril) 25 mg PO Q8H PRN PRN Reason: Anxiety Stop: 06/17/19 16:36 Lorazepam (Ativan) 0.5 mg in 1 mls @ 0.5 mls/min IV Q8H PRN PRN Reason: Sedation/Anxiety Stop: 06/17/19 16:36 Influenza Virus Vaccine Quadrival (Flu Vaccine, Do Not Administer) 1 ea N/A PRN PRN PRN Reason: Notification Stop: 06/17/19 16:36 Insulin Aspart (Novolog Flexpen) 0 units SC [facility] Stop: 06/18/19 20:59 Last Admin: 05/21/19 08:24 Dose: 3 units Documented by: Insulin Glargine (Lantus Solostar Pen) 15 units SC [facility] Stop: 06/18/19 20:59 Last Admin: 05/20/19 21:01 Dose: 15 units Documented by: Lorazepam (Ativan) 0.5 mg PO Q8H PRN PRN Reason: Sedation/Anxiety Stop: 06/17/19 16:36 Magnesium Hydroxide (Milk Of Magnesia) 30 ml PO DAILY PRN PRN Reason: Constipation Stop: 06/17/19 16:36 Last Admin: 05/19/19 20:50 Dose: 30 ml Documented by: Magnesium Oxide (Mag-Ox) 400 mg PO [facility] Stop: 06/18/19 10:59 Last Admin: 05/20/19 21:01 Dose: 400 mg Documented by: Metoclopramide HCl (Reglan) 10 mg IV Q6H PRN PRN Reason: Nausea &/or Vomiting Stop: 06/17/19 16:36 Miscellaneous (Remove Nicoderm Patch) 1 ea N/A DAILY@0859 [facility] Stop: 06/19/19 08:58 Last Admin: 05/21/19 08:27 Dose: 1 ea Documented by: Miscellaneous (Carbohydrates For Hypoglycemia) 15 - 30 gm PO UD PRN PRN Reason: Hypoglycemia Protocol Stop: 06/18/19 18:14 Naloxone HCl (Narcan) 0.1 mg IV Q5M PRN; Protocol PRN Reason: Oversedation/Resp Depression Stop: 06/17/19 16:36 Nicotine (Nicoderm Cq) 21 mg TD QAM [facility] Stop: 06/18/19 11:14 Last Admin: 05/21/19 08:28 Dose: 21 mg Documented by: Ondansetron HCl (Zofran) 4 mg IV Q6H PRN PRN Reason: Nausea &/or Vomiting Stop: 06/17/19 16:36 Ondansetron HCl (Zofran Odt) 4 mg PO Q6H PRN PRN Reason: Nausea Stop: 02/14/20 16:36 Oxycodone HCl (Roxicodone Immediate Rel) 5 - 10 mg PO Q4H PRN PRN Reason: Moderate-Severe Pain Stop: 06/01/19 16:36 Last Admin: 05/19/19 22:52 Dose: 10 mg Documented by: Pneumococcal Polyvalent Vaccine (Pneumococcal Vacc, Do Not Administer) 1 ea N/A PRN PRN PRN Reason: Notification Stop: 06/17/19 16:36 Senna/Docusate Sodium (Senokot S) 2 tab PO HS [facility] Stop: 06/17/19 20:59 Last Admin: 05/20/19 21:01 Dose: 2 tab Documented by: Sodium Biphosphate/Sodium Phosphate (Fleet Enema) 132 ml CO ONE PRN PRN Reason: Constipation Stop: 06/17/19 16:36 Tramadol HCl (Ultram) 50 - 100 mg PO Q4H PRN PRN Reason: Moderate-Severe Pain Stop: 06/17/19 16:36 Last Admin: 05/21/19 08:34 Dose: 100 mg Documented by: Vitamin D (Vitamin D3) 1,000 units PO QPM [facility] Stop: 06/17/19 20:59 Last Admin: 05/20/19 21:01 Dose: 1,000 units Documented by:
[2019-05-21] MEDS ORDERED: MAGNESIUM HYDROXIDE SUSP 30 ML UDC PO ONE (14:38)
[2019-05-21] MEDS: CHOLECALCIFEROL 1,000 UNITS 25 MCG TAB PO SCH (21:00)
[2019-05-21] MEDS: MAGNESIUM OXIDE 400 MG TAB PO SCH (21:01)
[2019-05-21] MEDS: DOCUSATE SODIUM/SENNA 50/8.6MG TAB PO SCH (21:01)
[2019-05-21] MEDS: INSULIN GLARGINE SOLOSTAR 100 UNITS/ML 3 ML PEN SC SCH (21:02)
[2019-05-22 06:23] LABS: Hematocrit (blood only) 23.2 % (42-52); Hemoglobin 7.9 g/dL (14.0-18.0)
[2019-05-22] MEDS: ALBUT/IPRATROP 3MG/0.5MG NEB 3 ML VIAL NEB SCH ×2 (07:25→13:13)
[2019-05-22] MEDS: TRAMADOL HCL 50 MG TABLET PO PRN (08:09)
[2019-05-22] MEDS: INSULIN GLARGINE SOLOSTAR 100 UNITS/ML 3 ML PEN SC SCH ×2 (08:50→21:41)
[2019-05-22] MEDS: INSULIN ASPART 100 UNITS/ML 3 ML PEN SC SCH ×4 (08:53→21:40)
[2019-05-22] MEDS: ATORVASTATIN 20 MG TAB PO SCH (08:55)
[2019-05-22] MEDS: LISINOPRIL/HCTZ 20/12.5MG 1 TAB TAB PO SCH (08:56)
[2019-05-22] MEDS: dilTIAZem HCL 120 MG CAPCR PO SCH (08:56)
[2019-05-22] MEDS: NICOTINE 21 MG/24 HR TDSY TD SCH (08:56)
--- NOTE | 2019-05-22 09:01 | Orthopedic Progress Note ---
Date of Service May 22, 2019 Assessment & Plan (1) Neurogenic claudication due to lumbar spinal stenosis: Patient is improving postoperative day #4. He is going to continue to work with physical therapy for ambulation and gait training. We will continue with GI DVT prophylaxis. Her hopes to get into rehabilitation sometime next week. Subjective Patient was seen bedside in room 388. He states he is feeling better. He still gets a little lightheaded when he first gets up but that seems to be resolving. He did have some pain in the right leg yesterday but that also seems to be better. He is tolerating p.o. He denies any other numbness, tingling, or paresthesias. Physical Exam Physical Exam: On exam he is alert and oriented. His calves are supple nontender. His abdomen soft nontender. His dressing is clean dry and intact. He is nontender with range of motion of his hips or knees. Gait was not observed. Results & Data Vital Signs (Past 12 Hours) Vital Signs Temp Pulse Resp BP Pulse Ox 05/22/19 08:17 36.8 C 87 18 115/62 93 05/22/19 07:25 85 16 93 05/21/19 22:54 36.9 C 91 H 18 105/65 92
[2019-05-22] MEDS ORDERED: SODIUM CHLORIDE 0.9% 250 ML IV PRN (10:38)
[2019-05-22] MEDS ORDERED: ACETAMINOPHEN 325 MG TAB PO SCH (10:45)
[2019-05-22] MEDS: OXYCODONE HCL IR 5 MG TAB (IMMEDIATE RELEASE) PO PRN (11:25)
--- NOTE | 2019-05-22 12:08 | Hospitalist Progress Note ---
Date of Service May 22, 2019 Assessment & Plan (1) Acute blood loss as cause of postoperative anemia: Hemoglobin remained stable post resuscitation but is now trending down slightly. With some reported dizziness this morning will transfuse 1 unit of pRBCs. Continue to monitor. (2) Postoperative state: Status post lumbar decompression and fusion on 05/18 (3) Spinal stenosis: Status post lumbar decompression and fusion on 05/18 (4) Postoperative hypovolemic shock: resolved. (5) Hypertension: Cont home Lis/HCTZ and cardizem. (6) Diabetes mellitus, type II: Uncontrolled A1c at baseline which is 7.8. Around goal. Cont to monitor on current regimen. (7) Hyperlipidemia: -Continue atorvastatin per home regimen (8) CKD (chronic kidney disease): At baseline, continue to monitor renal function intermittently and avoid nephrotoxic substances when able. (9) Tobacco use: Smoking cessation strongly encouraged. NicoDerm patch daily given. (10) DVT prophylaxis: SCDs/ambulation. Chemoprophylaxis is relatively contraindicated in the setting of significant hemorrhagic anemia causing shock recently with persistent anemia. Defer ultimate decision to orthopedics Full code Disposition-to rehab at time of discharge. Consuelo Alfaro DO [facility] Hospitalist Subjective Doing well today but does admit to some lightheadedness when transferring to chair today. This easily passed. Denies any chest pain, shortness of breath or other issues. Afebrile. Tolerating PO. Pain is well managed. Review of Systems Review of Systems: All systems reviewed & are unremarkable except as noted in HPI & below Physical Exam Physical Exam: CONSTITUTIONAL: obese, vitals as above, generally well- appearing EYES: normal conjunctivae, no scleral icterus ENT: MMM RESPIRATORY: clear to auscultation bilaterally, no crackles, rales or wheezes, normal respiratory effort CARDIOVASCULAR: regular rate and rhythm, S1 and 2 heard without murmurs, gallops or rubs, no JVD, no peripheral edema GASTROINTESTINAL: soft, nontender, nondistended, protuberant. MUSCULOSKELETAL: strength in lower extremities was not assessed 2/2 pain, otherwise moving all extremities well. Head is normocephalic and atraumatic SKIN: warm and dry, back incision covered with gauze that is c/d/i NEUROLOGIC: CN 2-12 grossly intact, no sensory deficit, normal cognition, no gross focal deficits. PSYCHIATRIC: alert cooperative and oriented to person, place and time. Results & Data Vital Signs (Past 12 Hours) Vital Signs Temp Pulse Resp BP Pulse Ox 05/22/19 08:17 36.8 C 87 18 115/62 93 05/22/19 07:25 85 16 93 Laboratory Results Short CBC 05/22/19 Range/Units 05:48 Hgb 7.9 L (14.0-18.0) g/dL Hct 23.2 L (42-52) % Medications Administered Current Inpatient Medications Acetaminophen (Tylenol) 1,000 mg PO Q8H PRN PRN Reason: MILD Pain Rating 1,2,3 Stop: 06/17/19 16:36 Acetaminophen (Tylenol) 650 mg PO TODAY@1045 [facility] Stop: 05/22/19 18:00 Al Hydrox/Mg Hydrox/Simethicone (Maalox) 30 ml PO Q6H PRN PRN Reason: Dyspepsia Stop: 06/17/19 16:36 Albuterol (Ventolin Hfa) 4 puffs INH Q4R PRN PRN Reason: Wheezing Stop: 06/17/19 22:59 Albuterol (Duoneb) 3 ml NEB TID [facility] Stop: 05/22/19 14:01 Last Admin: 05/22/19 07:25 Dose: 3 ml Documented by: Atorvastatin Calcium (Lipitor) 20 mg PO QAM [facility] Stop: 06/18/19 08:59 Last Admin: 05/22/19 08:55 Dose: 20 mg Documented by: Bisacodyl (Dulcolax) 10 mg [place] DAILY PRN PRN Reason: Constipation Stop: 06/17/19 16:36 Last Admin: 05/20/19 10:06 Dose: 10 mg Documented by: Dextrose (Dextrose 50%) 25 - 50 ml IV UD PRN; Protocol PRN Reason: Hypoglycemia Protocol Stop: 06/18/19 18:14 Diltiazem HCl (Cardizem Cd) 120 mg PO QAM [facility] Stop: 06/18/19 08:59 Last Admin: 05/22/19 08:56 Dose: 120 mg Documented by: Diphenhydramine HCl (Benadryl Capsule) 25 mg PO Q6H PRN PRN Reason: Allergic Rhinitis/Insomnia Stop: 06/17/19 16:36 Diphenhydramine HCl (Benadryl Capsule) 25 mg PO TODAY@1045 [facility] Stop: 05/22/19 18:00 Famotidine (Pepcid) 20 mg PO Q12H PRN PRN Reason: Dyspepsia Stop: 06/17/19 16:36 Glucagon (Glucagen) 1 mg SQ UD PRN; Protocol PRN Reason: Hypoglycemia Protocol Stop: 06/18/19 18:14 Glucose (Dex4 Glucose) 4 - 8 tabs PO UD PRN; Protocol PRN Reason: Hypoglycemia Protocol Stop: 06/18/19 18:14 Glucose (Glucose 40%) 15 - 30 gm PO UD PRN; Protocol PRN Reason: Hypoglycemia Protocol Stop: 06/18/19 18:14 Lisinopril/HCTZ (Prinzide 20/12.5mg) 1 tab PO QAM [facility] Stop: 06/20/19 08:59 Last Admin: 05/22/19 08:56 Dose: 1 tab Documented by: Hydromorphone HCl (Dilaudid) 0.5 mg IV Q3H PRN PRN Reason: moderate pain (scale 4-6) Stop: 06/01/19 16:36 Hydromorphone HCl (Dilaudid) 1 mg IV Q3H PRN PRN Reason: severe pain (scale 7-10) Stop: 06/01/19 16:36 Hydroxyzine HCl (Vistaril) 25 mg PO Q8H PRN PRN Reason: Anxiety Stop: 06/17/19 16:36 Lorazepam (Ativan) 0.5 mg in 1 mls @ 0.5 mls/min IV Q8H PRN PRN Reason: Sedation/Anxiety Stop: 06/17/19 16:36 Sodium Chloride (Nss) 250 mls @ 15 mls/hr IV .[id number] PRN PRN Reason: For Transfusion Stop: 05/22/19 20:38 Influenza Virus Vaccine Quadrival (Flu Vaccine, Do Not Administer) 1 ea N/A PRN PRN PRN Reason: Notification Stop: 06/17/19 16:36 Insulin Aspart (Novolog Flexpen) 0 units SC ACHS [facility] Stop: 06/18/19 20:59 Last Admin: 05/22/19 08:53 Dose: 10 units Documented by: Insulin Glargine (Lantus Solostar Pen) 15 units SC BID [facility] Stop: 06/20/19 20:59 Last Admin: 05/22/19 08:50 Dose: 15 units Documented by: Lorazepam (Ativan) 0.5 mg PO Q8H PRN PRN Reason: Sedation/Anxiety Stop: 06/17/19 16:36 Last Admin: 05/21/19 21:05 Dose: 0.5 mg Documented by: Magnesium Hydroxide (Milk Of Magnesia) 30 ml PO DAILY PRN PRN Reason: Constipation Stop: 06/17/19 16:36 Last Admin: 05/19/19 20:50 Dose: 30 ml Documented by: Magnesium Oxide (Mag-Ox) 400 mg PO HS [facility] Stop: 06/18/19 10:59 Last Admin: 05/21/19 21:01 Dose: 400 mg Documented by: Metoclopramide HCl (Reglan) 10 mg IV Q6H PRN PRN Reason: Nausea &/or Vomiting Stop: 06/17/19 16:36 Miscellaneous (Remove Nicoderm Patch) 1 ea N/A DAILY@0859 [facility] Stop: 06/19/19 08:58 Last Admin: 05/22/19 08:56 Dose: 1 ea Documented by: Miscellaneous (Carbohydrates For Hypoglycemia) 15 - 30 gm PO UD PRN PRN Reason: Hypoglycemia Protocol Stop: 06/18/19 18:14 Naloxone HCl (Narcan) 0.1 mg IV Q5M PRN; Protocol PRN Reason: Oversedation/Resp Depression Stop: 06/17/19 16:36 Nicotine (Nicoderm Cq) 21 mg TD QAM [facility] Stop: 06/18/19 11:14 Last Admin: 05/22/19 08:56 Dose: 21 mg Documented by: Ondansetron HCl (Zofran) 4 mg IV Q6H PRN PRN Reason: Nausea &/or Vomiting Stop: 06/17/19 16:36 Ondansetron HCl (Zofran Odt) 4 mg PO Q6H PRN PRN Reason: Nausea Stop: 06/17/19 16:36 Oxycodone HCl (Roxicodone Immediate Rel) 5 - 10 mg PO Q4H PRN PRN Reason: Moderate-Severe Pain Stop: 06/01/19 16:36 Last Admin: 05/22/19 11:25 Dose: 10 mg Documented by: Pneumococcal Polyvalent Vaccine (Pneumococcal Vacc, Do Not Administer) 1 ea N/A PRN PRN PRN Reason: Notification Stop: 06/17/19 16:36 Senna/Docusate Sodium (Senokot S) 2 tab PO HS [facility] Stop: 06/17/19 20:59 Last Admin: 05/21/19 21:01 Dose: 2 tab Documented by: Sodium Biphosphate/Sodium Phosphate (Fleet Enema) 132 ml [place] ONE PRN PRN Reason: Constipation Stop: 06/17/19 16:36 Tramadol HCl (Ultram) 50 - 100 mg PO Q4H PRN PRN Reason: Moderate-Severe Pain Stop: 06/17/19 16:36 Last Admin: 05/22/19 08:09 Dose: 50 mg Documented by: Vitamin D (Vitamin D3) 1,000 units PO QPM [facility] Stop: 06/17/19 20:59 Last Admin: 05/21/19 21:00 Dose: 1,000 units Documented by:
[2019-05-22] MEDS: MAGNESIUM OXIDE 400 MG TAB PO SCH (20:22)
[2019-05-22] MEDS: CHOLECALCIFEROL 1,000 UNITS 25 MCG TAB PO SCH (20:22)
[2019-05-22] MEDS: DOCUSATE SODIUM/SENNA 50/8.6MG TAB PO SCH (20:24)
[2019-05-23] MEDS: TRAMADOL HCL 50 MG TABLET PO PRN ×2 (00:22→18:35)
[2019-05-23] MEDS: NICOTINE 21 MG/24 HR TDSY TD SCH (09:40)
[2019-05-23] MEDS: ATORVASTATIN 20 MG TAB PO SCH (09:41)
[2019-05-23] MEDS: INSULIN GLARGINE SOLOSTAR 100 UNITS/ML 3 ML PEN SC SCH ×2 (09:48→21:53)
[2019-05-23] MEDS: INSULIN ASPART 100 UNITS/ML 3 ML PEN SC SCH ×4 (09:48→21:53)
[2019-05-23 10:35] LABS: Nucleated RBC # (auto) 0.03 K/uL (0-0); Nucleated RBC % (auto) 0.2 %
[2019-05-23] MEDS: LISINOPRIL/HCTZ 20/12.5MG 1 TAB TAB PO SCH (10:43)
[2019-05-23] MEDS: dilTIAZem HCL 120 MG CAPCR PO SCH (10:43)
[2019-05-23 10:44] LABS: Hematocrit (blood only) 27.8 % (42-52); Hemoglobin 9.3 g/dL (14.0-18.0); Mean Corpuscular Hemoglobin 30.8 pg (25-34); Mean Corpuscular Hgb Conc 33.5 g/dL (32-36); Mean Corpuscular Volume 92.1 fL (80-100); Mean Platelet Volume 9.8 fL (7.4-10.4); Platelet Count 298 K/uL (130-400); RDW Coefficient of Variation 14.1 % (11.5-14.5); RDW Standard Deviation 46.5 fL (36.4-46.3); Red Blood Count 3.02 M/uL (4.7-6.1); White Blood Count 11.16 K/uL (4.8-10.8)
[2019-05-23] MEDS: POLYETHYLENE (MIRALAX) 17 GM PACK PO SCH ×2 (12:12→21:54)
--- NOTE | 2019-05-23 13:13 | Orthopedic Progress Note ---
Date of Service May 23, 2019 Assessment & Plan (1) Neurogenic claudication due to lumbar spinal stenosis: At this time we will continue physical therapy ambulate as tolerated plan for DC to rehab tomorrow. Present on Admission?: Yes Subjective Back pain controlled leg symptoms improving Physical Exam Physical Exam: Patient is just returned to bed from ambulation. Skin strength testing. Results & Data Vital Signs (Past 12 Hours) Vital Signs Temp Pulse Resp BP BP Pulse Ox 05/23/19 10:42 89 112/66 05/23/19 09:35 98 H 138/71 101/62 05/23/19 07:01 36.9 C 85 16 125/69 93
--- NOTE | 2019-05-23 14:48 | Hospitalist Progress Note ---
Date of Service May 23, 2019 Assessment & Plan (1) Postoperative state: Status post lumbar decompression and fusion on 05/18. Pain controlled with current regimen. Continues with PT/OT and Ortho plan. (2) Spinal stenosis: Status post lumbar decompression and fusion on 05/18 (3) Postoperative hypovolemic shock: resolved. (4) Acute blood loss as cause of postoperative anemia: H/H trended down slightly and patient was reporting some lightheadedness yesterday so 1 unit pRBCs were given with good response. H/H expectantly improved and he reports feeling well. (5) Hypertension: Cont lis/HCTZ and Cardizem per home regimen. (6) Diabetes mellitus, type II: Uncontrolled A1c at baseline which is 7.8. Currently around goal inpatient numbers. Cont to monitor. (7) Hyperlipidemia: -Continue atorvastatin per home regimen (8) CKD (chronic kidney disease): At baseline, continue to monitor renal function intermittently and avoid nephrotoxic substances when able. (9) Tobacco use: Smoking cessation strongly encouraged. NicoDerm patch daily given. (10) DVT prophylaxis: SCDs/ambulation. Chemoprophylaxis is relatively contraindicated in the setting of significant hemorrhagic anemia causing shock recently with persistent anemia. Defer ultimate decision to orthopedics Full code Disposition-cont Med/Surg. Dispo per Orthopedics. Consuelo Alfaro DO [facility] Hospitalist Subjective Doing well today. Pain is well controlled. Tolerating PO. Feeling well otherwise per his report. Review of Systems Review of Systems: All systems reviewed & are unremarkable except as noted in HPI & below Physical Exam Physical Exam: CONSTITUTIONAL: obese, vitals as above, generally well-appea ring EYES: normal conjunctivae, no scleral icterus ENT: MMM RESPIRATORY: clear to auscultation bilaterally, no crackles, rales or wheezes, normal respiratory effort CARDIOVASCULAR: regular rate and rhythm, S1 and 2 heard without murmurs, gallops or rubs, no JVD, no peripheral edema GASTROINTESTINAL: soft, nontender, nondistended, protuberant. MUSCULOSKELETAL: moving all extremities equally. SKIN: warm and dry, back incision covered with gauze that is c/d/i NEUROLOGIC: CN 2-12 grossly intact, no sensory deficit, normal cognition, no gross focal deficits. PSYCHIATRIC: alert cooperative and oriented to person, place and time. Results & Data Vital Signs (Past 12 Hours) Vital Signs Temp Pulse Resp BP BP Pulse Ox 05/23/19 10:42 89 112/66 05/23/19 09:35 98 H 138/71 101/62 05/23/19 07:01 36.9 C 85 16 125/69 93 Laboratory Results Short CBC 05/23/19 Range/Units 10:22 WBC 11.16 H (4.8-10.8) K/uL Hgb 9.3 L (14.0-18.0) g/dL Hct 27.8 L (42-52) % Plt Count 298 (130-400) K/uL Medications Administered Current Inpatient Medications Acetaminophen (Tylenol) 1,000 mg PO Q8H PRN PRN Reason: MILD Pain Rating 1,2,3 Stop: 06/17/19 16:36 Al Hydrox/Mg Hydrox/Simethicone (Maalox) 30 ml PO Q6H PRN PRN Reason: Dyspepsia Stop: 06/17/19 16:36 Albuterol (Ventolin Hfa) 4 puffs INH Q4R PRN PRN Reason: Wheezing Stop: 06/17/19 22:59 Atorvastatin Calcium ([facility]itor) [facility] Stop: 06/18/19 08:59 Last Admin: 05/23/19 09:41 Dose: 20 mg Documented by: Bisacodyl (Dulcolax) 10 mg [place] DAILY PRN PRN Reason: Constipation Stop: 06/17/19 16:36 Last Admin: 05/20/19 10:06 Dose: 10 mg Documented by: Dextrose (Dextrose 50%) 25 - 50 ml IV UD PRN; Protocol PRN Reason: Hypoglycemia Protocol Stop: 06/18/19 18:14 Diltiazem HCl (Cardizem Cd) 120 mg PO [facility] Stop: 06/18/19 08:59 Last Admin: 05/23/19 10:43 Dose: 120 mg Documented by: Diphenhydramine HCl (Benadryl Capsule) 25 mg PO Q6H PRN PRN Reason: Allergic Rhinitis/Insomnia Stop: 06/17/19 16:36 Famotidine (Pepcid) 20 mg PO Q12H PRN PRN Reason: Dyspepsia Stop: 06/17/19 16:36 Glucagon (Glucagen) 1 mg SQ UD PRN; Protocol PRN Reason: Hypoglycemia Protocol Stop: 06/18/19 18:14 Glucose (Dex4 Glucose) 4 - 8 tabs PO UD PRN; Protocol PRN Reason: Hypoglycemia Protocol Stop: 06/18/19 18:14 Glucose (Glucose 40%) 15 - 30 gm PO UD PRN; Protocol PRN Reason: Hypoglycemia Protocol Stop: 06/18/19 18:14 Lisinopril/HCTZ (Prinzide 20/12.5mg) 1 tab PO QAM [facility] Stop: 06/20/19 08:59 Last Admin: 05/23/19 10:43 Dose: 1 tab Documented by: Hydromorphone HCl (Dilaudid) 0.5 mg IV Q3H PRN PRN Reason: moderate pain (scale 4-6) Stop: 06/01/19 16:36 Hydromorphone HCl (Dilaudid) 1 mg IV Q3H PRN PRN Reason: severe pain (scale 7-10) Stop: 06/01/19 16:36 Hydroxyzine HCl (Vistaril) 25 mg PO Q8H PRN PRN Reason: Anxiety Stop: 06/17/19 16:36 Lorazepam (Ativan) 0.5 mg in 1 mls @ 0.5 mls/min IV Q8H PRN PRN Reason: Sedation/Anxiety Stop: 06/17/19 16:36 Influenza Virus Vaccine Quadrival (Flu Vaccine, Do Not Administer) 1 ea N/A PRN PRN PRN Reason: Notification Stop: 06/17/19 16:36 Insulin Aspart (Novolog Flexpen) 0 units SC ACHS [facility] Stop: 06/18/19 20:59 Last Admin: 05/23/19 13:31 Dose: 8 units Documented by: Insulin Glargine (Lantus Solostar Pen) 15 units SC BID [facility] Stop: 06/20/19 20:59 Last Admin: 05/23/19 09:48 Dose: 15 units Documented by: Lorazepam (Ativan) 0.5 mg PO Q8H PRN PRN Reason: Sedation/Anxiety Stop: 06/17/19 16:36 Last Admin: 05/21/19 21:05 Dose: 0.5 mg Documented by: Magnesium Hydroxide (Milk Of Magnesia) 30 ml PO DAILY PRN PRN Reason: Constipation Stop: 06/17/19 16:36 Last Admin: 05/19/19 20:50 Dose: 30 ml Documented by: Magnesium Oxide (Mag-Ox) 400 mg PO HS [facility] Stop: 06/18/19 10:59 Last Admin: 05/22/19 20:22 Dose: 400 mg Documented by: Metoclopramide HCl (Reglan) 10 mg IV Q6H PRN PRN Reason: Nausea &/or Vomiting Stop: 06/17/19 16:36 Miscellaneous (Remove Nicoderm Patch) 1 ea N/A DAILY@0859 [facility] Stop: 06/19/19 08:58 Last Admin: 05/23/19 09:40 Dose: 1 ea Documented by: Miscellaneous (Carbohydrates For Hypoglycemia) 15 - 30 gm PO UD PRN PRN Reason: Hypoglycemia Protocol Stop: 06/18/19 18:14 Naloxone HCl (Narcan) 0.1 mg IV Q5M PRN; Protocol PRN Reason: Oversedation/Resp Depression Stop: 06/17/19 16:36 Nicotine (Nicoderm Cq) 21 mg TD QAM [facility] Stop: 06/18/19 11:14 Last Admin: 05/23/19 09:40 Dose: 21 mg Documented by: Ondansetron HCl (Zofran) 4 mg IV Q6H PRN PRN Reason: Nausea &/or Vomiting Stop: 06/17/19 16:36 Ondansetron HCl (Zofran Odt) 4 mg PO Q6H PRN PRN Reason: Nausea Stop: 06/17/19 16:36 Oxycodone HCl (Roxicodone Immediate Rel) 5 - 10 mg PO Q4H PRN PRN Reason: Moderate-Severe Pain Stop: 06/01/19 16:36 Last Admin: 05/22/19 11:25 Dose: 10 mg Documented by: Pneumococcal Polyvalent Vaccine (Pneumococcal Vacc, Do Not Administer) 1 ea N/A PRN PRN PRN Reason: Notification Stop: 06/17/19 16:36 Polyethylene Glycol (Miralax Powder Packet) 17 gm PO BID [facility] Stop: 06/22/19 11:14 Last Admin: 05/23/19 12:12 Dose: 17 gm Documented by: Senna/Docusate Sodium (Senokot S) 2 tab PO HS [facility] Stop: 06/17/19 20:59 Last Admin: 05/22/19 20:24 Dose: 2 tab Documented by: Sodium Biphosphate/Sodium Phosphate (Fleet Enema) 132 ml [place] ONE PRN PRN Reason: Constipation Stop: 06/17/19 16:36 Tramadol HCl (Ultram) 50 - 100 mg PO Q4H PRN PRN Reason: Moderate-Severe Pain Stop: 06/17/19 16:36 Last Admin: 05/23/19 00:22 Dose: 50 mg Documented by: Vitamin D (Vitamin D3) 1,000 units PO QPM [facility] Stop: 06/17/19 20:59 Last Admin: 05/22/19 20:22 Dose: 1,000 units Documented by:
[2019-05-23] MEDS: MAGNESIUM OXIDE 400 MG TAB PO SCH (21:54)
[2019-05-23] MEDS: CHOLECALCIFEROL 1,000 UNITS 25 MCG TAB PO SCH (21:55)
[2019-05-23] MEDS: DOCUSATE SODIUM/SENNA 50/8.6MG TAB PO SCH (21:58)
[2019-05-24] MEDS: TRAMADOL HCL 50 MG TABLET PO PRN ×4 (00:42→21:04)
[2019-05-24] MEDS: NICOTINE 21 MG/24 HR TDSY TD SCH (09:11)
[2019-05-24] MEDS: LISINOPRIL/HCTZ 20/12.5MG 1 TAB TAB PO SCH (09:12)
[2019-05-24] MEDS: ATORVASTATIN 20 MG TAB PO SCH (09:12)
[2019-05-24] MEDS: dilTIAZem HCL 120 MG CAPCR PO SCH (09:13)
[2019-05-24] MEDS: POLYETHYLENE (MIRALAX) 17 GM PACK PO SCH ×2 (09:15→20:27)
[2019-05-24] MEDS: INSULIN ASPART 100 UNITS/ML 3 ML PEN SC SCH ×4 (09:16→20:35)
[2019-05-24] MEDS: INSULIN GLARGINE SOLOSTAR 100 UNITS/ML 3 ML PEN SC SCH ×2 (09:16→20:28)
--- NOTE | 2019-05-24 09:38 | Discharge Summary ---
Date of Service May 24, 2019 Admission HPI Per Admitting Provider This is a 73-year-old male who presents with back and bilateral leg pain. After failing extensive course of nonoperative care is here for surgical invention. Principal Diagnosis Lumbar spinal stenosis with neurogenic claudication Discharge Data Allergies Allergy/AdvReac Type Severity Reaction Status Date / Time No Known Allergies Allergy Mild Verified 05/18/19 08:59 Consultations 05/18/19 15:32 Consult Circuit Walker Routine 05/18/19 16:37 Consult Case Management - Discharge Planning Routine Consult Hospitalist Routine Procedures Performed Operation Date: 05/18/19 10:05 Actual Procedures p T11-S1 Decompression and Fusion, Interbody Insertion L4-L5, Use of Osteoamp and Infuse, Spinal Cord Monitoring(Not Applicable) - Arjun Isaacs DO Ordered Studies 05/18/19 10:05 FL fluoroscopy <1hr Routine FL lumbar spine 2-3V Routine Hospital Course (1) Spinal stenosis: Patient underwent multilevel lumbar decompression and fusion was taken to the ICU postoperatively secondary to blood loss. He was able to transfer to the PCU the following day and then progressed to the orthopedic floor in a normal fashion. MELISSA drain eventually decreasing appropriately. He did require ariza sfusions throughout his hospital stay. Nevertheless he progressed appropriately ambulating and tolerating physical therapy. Subsequently was discharged to rehab facility. Discharge orders instructions from the chart for further review. Total Time Total Time Spent Total Time Spent (In Minutes): 40 minutes Discharge Plan Discharge Items Patient Disposition: Transfer Inpatient Rehab Fac Reason For Visit: Low Back Pain Discharge Diagnosis: Lumbar spinal stenosis with neurogenic claudication Activity: As commented below Non-emergency contact: Primary Care Provider Call non-emergency contact if: you have any medication questions Follow-up/Referrals: Mayuri Kincaid MD [Primary Care Provider] - Diet: Regular Addtl Attending Provider Instructions: ACTIVITY RECOMMENDATIONS: SELF CARE INSTRUCTIONS AFTER THORACIC/LUMBAR FUSIONS 1. You may walk to your tolerance. It is good exercise for your legs and back. Expect some back and intermittent leg aches and pains. 2. You may perform "counter-top" level activities (make a sandwich, megan with a project, etc.). 3. No bending or lifting of more than 10 pounds or back twisting of any nature (roll like a log when turning in bed). 4. You may ride in a car for 20-30 minutes at a time. No driving until after your first visit with your doctor. 5. Frequent changes of position and restricting sitting to 30 minutes at a time will help limit the amount of back spasms and stiffness you may experience. 6. You may discontinue the use of ambulatory aids (cane, crutches, etc.) once your strength and confidence allow. 7. You may line assembler the shower and let water strike your incision when you arrive home at least once daily. Do not take a tub bath, sit in a hot tub or go into a swimming pool until after your first recheck in the office. SPECIAL CARE INSTRUCTIONS: VERY IMPORTANT TO READ AND REVIEW A. Your surgical incision has been closed with a cosmetic suture under the skin that will dissolve in about 6 weeks. In 14 days, you can use a pair of clean scissors and cut the suture that is left outside of the skin at the ends of your incision. 1. The small skin tapes can be removed 7 days after surgery if they have not fallen off by that point. 2. You may keep the wound open to air as much as possible to promote healing after post-op day number 5 unless told otherwise by your doctor. 3. If you think the wound looks like it is becoming infected (redness or worsening drainage) and/or you are experiencing fever, chill or worsening back pain and muscle spasms, contact the office so that we may evaluate you as soon as possible. B. Complications are uncommon, but please contact us if you have any signs or symptoms of: 1. wound infection (fever higher than 102.5 degrees F, redness, separation of wound, drainage, or increasing pain from the incision) 2. blood clots in legs (pain, swelling, redness and warmth in legs) 3. urinary tract infection (fever higher than 102.5 degrees F, burning upon urination or increased frequency of urination) 4. nerve problems (inability to walk on your toes or heels, numbness, loss of bowel or bladder control) 5. any other symptoms that concern you C. Please call the office at if you have any concerns or questions about your operation or recovery. D. No smoking! Smoking drastically decreases the chance of a solid fusion. E. Do not take any anti-inflammatory medications (Indocin, Advil, Motrin, Aspirin, Naprosyn, etc.) as these may inhibit the chance of a solid fusion. Tylenol is okay to take for pain. MANAGING PAIN AFTER SPINAL SURGERY 1. Narcotic medication is intended for short-term use and will be provided for surgical pain. Surgical pain usually lasts for a period of 4-6 weeks. Narcotic medication includes Percocet, Vicodin, Darvocet, Tylenol #3 or Lortab. 2. Longer-term pain is more appropriately treated with non-narcotic medication such as Tylenol ES. 3. Muscle spasm is not appropriately treated with narcotics. Muscle relaxers such as Soma, Flexeril or Skelaxin can be used along with Tylenol ES. 4. Remember that we all live with some "aches and pains". This is not unusual or uncommon after an injury or as we get older. a. Back pain is expected and may include muscle spasms for 4 to 6 weeks after surgery. The pain should gradually improve. If the pain worsens for no apparent reason, please contact the office. b. Intermittent leg pain may also be experienced and should not be concerned about unless it worsens for no apparent reason. If so, please contact the office. 5. We will provide appropriate medication within the normal guidelines of their prescribed use. We will also be very cautious and aware of potential abuse and extended duration of patients' medication needs. a. Pain medications are for your comfort and to assist with sleep and rest so that the tissue can heal. They are not provided in order to return to normal activity and should not be used through the day. To do so or worsening pain at night can result from ongoing tissue damage and development of tolerance to the prescribed medicine. 6. Please allow 2-3 days to process refills. Prescriptions will not be mailed but must be picked up at the office. FOLLOW UP VISIT: Keep your scheduled follow-up appointment. Any questions, please call the office at . Pending Studies at Discharge: No Stand-Alone Forms: My [facility] [employer] Skilled Items Patient informed of condition?: Yes DNR: No Discharge Level of Care: Acute rehab Communicable Disease: No Discharge Prognosis: Improving Lines: None Urinary Catheter: No Medications and DC Order Prescriptions: New tramadol 50 mg tablet 50 mg PO Q6H PRN (Reason: pain, moderate) Qty: 30 RF: 0 oxycodone 5 mg tablet 5 mg PO Q6H PRN (Reason: pain, severe) Qty: 30 RF: 0 Continued atorvastatin 20 mg Tablet 20 mg PO QAM RF: 0 lisinopril-hydrochlorothiazide 20-12.5 mg Tablet 1 tab PO BID RF: 0 aspirin [Aspir-81] 81 mg Tablet,Delayed Release (Dr/Ec) 81 mg PO QAM RF: 0 metformin 1,000 mg Tablet 1,000 mg PO BID RF: 0 diltiazem HCl [Cardizem CD] 120 mg Capsule,Extended Release 24hr 120 mg PO QAM RF: 0 cholecalciferol (vitamin D3) [Vitamin D3] 1,000 unit Tablet,Chewable 1,000 unit PO QPM RF: 0 Discontinued ibuprofen 200 mg Tablet 600 mg PO Q6H PRN (Reason: Pain) RF: 0 Discharge Orders: Discharge Order (Routine); Ordered 05/24/19 Ordered By: Arjun Isaacs Admission Data Admit Date/Time: 05/18/19 15:32 Attending Provider: Arjun Isaacs Admit Provider: Arjun Isaacs Primary Care Provider: Mayuri Kincaid Other Providers: Consuelo Alfaro ; Lisa Philip ; Jose Berman ; Erickson Oliveira
[2019-05-24 10:49] LABS: Hematocrit (blood only) 28.7 % (42-52); Hemoglobin 9.6 g/dL (14.0-18.0); Mean Corpuscular Hemoglobin 30.9 pg (25-34); Mean Corpuscular Volume 92.3 fL (80-100); Mean Platelet Volume 9.6 fL (7.4-10.4); Platelet Count 365 K/uL (130-400); RDW Standard Deviation 46.4 fL (36.4-46.3); Red Blood Count 3.11 M/uL (4.7-6.1); White Blood Count 14.58 K/uL (4.8-10.8)
[2019-05-24 10:57] LABS: Mean Corpuscular Hgb Conc 33.4 g/dL (32-36)
[2019-05-24] MEDS ORDERED: SODIUM CHLORIDE 0.9% 1000ML 1,000 ML IV ONE (10:59)
[2019-05-24 11:07] LABS: BUN Creatinine Ratio 20.6 (10-20); Creatinine Clr Calc Pharmacy 47.2 ml/min; Est GFR (Non-African American) 43.1; Potassium 3.8 mmol/L (3.5-5.1)
--- NOTE | 2019-05-24 11:31 | Hospitalist Progress Note ---
Date of Service May 24, 2019 Assessment & Plan (1) Orthostatic hypotension: Likely related to starting home lis/HCTZ per home regimen consistently too soon after hemorrhagic shock and in post-op state. This was mainly restarted for the diuretic effect 2/2 reports of uncomfortable hand puffiness, which has improved. Home diltiazem was also held for now, but may be restarted again if heart rate starts to rise. 1L NSS now. Hold BP med at discharge and restart as outpatient in 1-2 weeks or as BP rises and patient continues to recover. (2) Mngcs-ak-czexmyn kidney injury: New and likely related to lisinopril/HCTZ use which has stopped. Repeat BMP in am. (3) Postoperative state: Status post lumbar decompression and fusion on 05/18 (4) Spinal stenosis: Status post lumbar decompression and fusion on 05/18 (5) Postoperative hypovolemic shock: resolved, but now with some hypotension, likely related to medication usage, which has been held. (6) Acute blood loss as cause of postoperative anemia: Received one unit of blood for some presumed symptomatic anemia on 05/22. Per his report, he was feeling better and he did not inform me of his persistent daily orthostatic episodes that he was having despite an expected improvement in H/H. See above for plan. H/H stable since transfusion. (7) Diabetes mellitus, type II: Uncontrolled A1c at baseline which is 7.8. Not optimal numbers inpatient. Increase Lantus to 20 Units BID. Cont carb coverage. (8) Hyperlipidemia: -Continue atorvastatin per home regimen (9) Tobacco use: Smoking cessation strongly encouraged. NicoDerm patch daily given. (10) DVT prophylaxis: SCDs/ambulation. Chemoprophylaxis is relatively contraindicated in the se tting of significant hemorrhagic anemia causing shock recently with persistent anemia. Defer ultimate decision to orthopedics Full code Disposition-cont hospitalization with discharge pending improvement in orthostatic hypotension and resolution of LOWELL. Thank you for this consultation. Consuelo Alfaro DO [facility] Hospitalist Subjective Increased dizziness on 05/23 with PT within 1-2 minutes of starting activity. PT was unable to obtain standing BP but BP was 106/50 when patient sat back down. Pt appeared diaphoretic. He again had an episode of hypotension and orthostasis today while on the bedside commode. He has been receiving lis/HCTZ per home regimen for the past 3 days. Repeat labwork this morning reveals no drop in H/H. There is a slight elevation in WBC to 14K and a new LOWELL noted with rise in creatinine to 1.5. IVF started and will reassess orthostatics. Transportation was deferred until tomorrow. Discussed case with CM and floor nurse. Send message to Dr. Isaacs. Review of Systems Review of Systems: All systems reviewed & are unremarkable except as noted in HPI & below Physical Exam Physical Exam: CONSTITUTIONAL: obese, vitals as above, generally well- appearing EYES: normal conjunctivae, no scleral icterus ENT: MMM RESPIRATORY: clear to auscultation bilaterally, no crackles, rales or wheezes, normal respiratory effort CARDIOVASCULAR: regular rate and rhythm, S1 and 2 heard without murmurs, gallops or rubs, no JVD, no peripheral edema GASTROINTESTINAL: soft, nontender, nondistended, protuberant. MUSCULOSKELETAL: strength in lower extremities was not assessed 2/2 pain, otherwise moving all extremities well. Cannot sit up well on his own secondary to pain. Head is normocephalic and atraumatic SKIN: warm and dry, back incision covered with gauze that is c/d/i NEUROLOGIC: CN 2-12 grossly intact, no sensory deficit, normal cognition, no gross focal deficits. PSYCHIATRIC: alert cooperative and oriented to person, place and time. Results & Data Vital Signs (Past 12 Hours) Vital Signs Temp Pulse Resp BP BP Pulse Ox 05/24/19 11:03 99/63 L 05/24/19 10:50 70/45 L 05/24/19 09:09 90 106/63 05/24/19 07:14 36.8 C 83 18 107/62 95 Laboratory Results Short CBC 05/05/19 05/18/19 05/19/19 Range/Units 10:50 19:04 05:11 WBC (4.8-10.8) K/uL Hgb (14.0-18.0) g/dL Hct (42-52) % Plt Count (130-400) K/uL Creatinine 1.40 1.44 H 1.51 H (0.6-1.4) mg/dl 05/20/19 05/21/19 05/24/19 Range/Units 07:22 06:03 10:36 WBC 14.58 H (4.8-10.8) K/uL Hgb 9.6 L (14.0-18.0) g/dL Hct 28.7 L (42-52) % Plt Count 365 (130-400) K/uL Creatinine 1.33 1.11 (0.6-1.4) mg/dl 05/24/19 Range/Units 10:36 WBC (4.8-10.8) K/uL Hgb (14.0-18.0) g/dL Hct (42-52) % Plt Count (130-400) K/uL Creatinine 1.56 H (0.6-1.4) mg/dl BMP 05/24/19 10:36 Sodium 134 L Potassium 3.8 Chloride 99 Carbon Dioxide 26 BUN 32 H Creatinine 1.56 H Glucose 184 H Calcium 9.0 Medications Administered Current Inpatient Medications Acetaminophen (Tylenol) 1,000 mg PO Q8H PRN PRN Reason: MILD Pain Rating 1,2,3 Stop: 06/17/19 16:36 Al Hydrox/Mg Hydrox/Simethicone (Maalox) 30 ml PO Q6H PRN PRN Reason: Dyspepsia Stop: 06/17/19 16:36 Albuterol (Ventolin Hfa) 4 puffs INH Q4R PRN PRN Reason: Wheezing Stop: 06/17/19 22:59 Atorvastatin Calcium ([facility]) [facility] [place] Stop: 06/18/19 08:59 Last Admin: 05/24/19 09:12 Dose: 20 mg Documented by: Bisacodyl (Dulcolax) 10 mg ID DAILY PRN PRN Reason: Constipation Stop: 06/17/19 16:36 Last Admin: 05/20/19 10:06 Dose: 10 mg Documented by: Dextrose (Dextrose 50%) 25 - 50 ml IV UD PRN; Protocol PRN Reason: Hypoglycemia Protocol Stop: 06/18/19 18:14 Diltiazem HCl (Cardizem Cd) 120 [facility] [place] Stop: 06/18/19 08:59 Last Admin: 05/24/19 09:13 Dose: 120 mg Documented by: Diphenhydramine HCl (Benadryl Capsule) 25 mg PO Q6H PRN PRN Reason: Allergic Rhinitis/Insomnia Stop: 06/17/19 16:36 Famotidine (Pepcid) 20 mg PO Q12H PRN PRN Reason: Dyspepsia Stop: 06/17/19 16:36 Glucagon (Glucagen) 1 mg SQ UD PRN; Protocol PRN Reason: Hypoglycemia Protocol Stop: 06/18/19 18:14 Glucose (Dex4 Glucose) 4 - 8 tabs PO UD PRN; Protocol PRN Reason: Hypoglycemia Protocol Stop: 06/18/19 18:14 Glucose (Glucose 40%) 15 - 30 gm PO UD PRN; Protocol PRN Reason: Hypoglycemia Protocol Stop: 06/18/19 18:14 Hydromorphone HCl (Dilaudid) 0.5 mg IV Q3H PRN PRN Reason: moderate pain (scale 4-6) Stop: 06/01/19 16:36 Hydromorphone HCl (Dilaudid) 1 mg IV Q3H PRN PRN Reason: severe pain (scale 7-10) Stop: 06/01/19 16:36 Hydroxyzine HCl (Vistaril) 25 mg PO Q8H PRN PRN Reason: Anxiety Stop: 06/17/19 16:36 Lorazepam (Ativan) 0.5 mg in 1 mls @ 0.5 mls/min IV Q8H PRN PRN Reason: Sedation/Anxiety Stop: 06/17/19 16:36 Sodium Chloride (Nss 1000ml) 1,000 mls @ 999 mls/hr IV .Q1H1M ONE Stop: 05/24/19 11:59 Last Admin: 05/24/19 11:10 Dose: 999 mls/hr Documented by: Influenza Virus Vaccine Quadrival (Flu Vaccine, Do Not Administer) 1 ea N/A PRN PRN PRN Reason: Notification Stop: 06/17/19 16:36 Insulin Aspart (Novolog Flexpen) 0 units SC ACHS [facility] Stop: 06/18/19 20:59 Last Admin: 05/24/19 09:16 Dose: 7 units Documented by: Insulin Glargine (Lantus Solostar Pen) 15 units SC BID [facility] Stop: 06/20/19 20:59 Last Admin: 05/24/19 09:16 Dose: 15 units Documented by: Lorazepam (Ativan) 0.5 mg PO Q8H PRN PRN Reason: Sedation/Anxiety Stop: 06/17/19 16:36 Last Admin: 05/21/19 21:05 Dose: 0.5 mg Documented by: Magnesium Hydroxide (Milk Of Magnesia) 30 ml PO DAILY PRN PRN Reason: Constipation Stop: 06/17/19 16:36 Last Admin: 05/19/19 20:50 Dose: 30 ml Documented by: Magnesium Oxide (Mag-Ox) 400 mg PO HS [facility] Stop: 06/18/19 10:59 Last Admin: 05/23/19 21:54 Dose: 400 mg Documented by: Metoclopramide HCl (Reglan) 10 mg IV Q6H PRN PRN Reason: Nausea &/or Vomiting Stop: 06/17/19 16:36 Miscellaneous (Remove Nicoderm Patch) 1 ea N/A DAILY@0859 [facility] Stop: 06/19/19 08:58 Last Admin: 05/24/19 09:11 Dose: 1 ea Documented by: Miscellaneous (Carbohydrates For Hypoglycemia) 15 - 30 gm PO UD PRN PRN Reason: Hypoglycemia Protocol Stop: 06/18/19 18:14 Naloxone HCl (Narcan) 0.1 mg IV Q5M PRN; Protocol PRN Reason: Oversedation/Resp Depression Stop: 06/17/19 16:36 Nicotine (Nicoderm Cq) 21 mg TD QAM [facility] Stop: 06/18/19 11:14 Last Admin: 05/24/19 09:11 Dose: 21 mg Documented by: Ondansetron HCl (Zofran) 4 mg IV Q6H PRN PRN Reason: Nausea &/or Vomiting Stop: 06/17/19 16:36 Ondansetron HCl (Zofran Odt) 4 mg PO Q6H PRN PRN Reason: Nausea Stop: 06/17/19 16:36 Oxycodone HCl (Roxicodone Immediate Rel) 5 - 10 mg PO Q4H PRN PRN Reason: Moderate-Severe Pain Stop: 06/01/19 16:36 Last Admin: 05/22/19 11:25 Dose: 10 mg Documented by: Pneumococcal Polyvalent Vaccine (Pneumococcal Vacc, Do Not Administer) 1 ea N/A PRN PRN PRN Reason: Notification Stop: 06/17/19 16:36 Polyethylene Glycol (Miralax Powder Packet) 17 gm PO BID [facility] Stop: 06/22/19 11:14 Last Admin: 05/24/19 09:15 Dose: Not Given Documented by: Senna/Docusate Sodium (Senokot S) 2 tab PO HS [facility] Stop: 06/17/19 20:59 Last Admin: 05/23/19 21:58 Dose: 2 tab Documented by: Sodium Biphosphate/Sodium Phosphate (Fleet Enema) 132 ml ID ONE PRN PRN Reason: Constipation Stop: 06/17/19 16:36 Tramadol HCl (Ultram) 50 - 100 mg PO Q4H PRN PRN Reason: Moderate-Severe Pain Stop: 06/17/19 16:36 Last Admin: 05/24/19 09:50 Dose: 50 mg Documented by: Vitamin D (Vitamin D3) 1,000 units PO QPM [facility] Stop: 06/17/19 20:59 Last Admin: 05/23/19 21:55 Dose: 1,000 units Documented by:
[2019-05-24] MEDS: DOCUSATE SODIUM/SENNA 50/8.6MG TAB PO SCH (20:25)
[2019-05-24] MEDS: MAGNESIUM OXIDE 400 MG TAB PO SCH (20:26)
[2019-05-24] MEDS: CHOLECALCIFEROL 1,000 UNITS 25 MCG TAB PO SCH (20:27)
[2019-05-25 07:17] LABS: Hematocrit (blood only) 25.9 % (42-52); Hemoglobin 8.7 g/dL (14.0-18.0); Mean Corpuscular Hemoglobin 30.9 pg (25-34); Mean Corpuscular Hgb Conc 33.6 g/dL (32-36); Mean Corpuscular Volume 91.8 fL (80-100); Mean Platelet Volume 9.2 fL (7.4-10.4); Platelet Count 356 K/uL (130-400); RDW Coefficient of Variation 13.7 % (11.5-14.5); RDW Standard Deviation 46.2 fL (36.4-46.3); Red Blood Count 2.82 M/uL (4.7-6.1); White Blood Count 13.55 K/uL (4.8-10.8)
[2019-05-25 07:48] LABS: BUN Creatinine Ratio 21.9 (10-20); Calcium 8.7 mg/dl (8.5-10.1); Creatinine Clr Calc Pharmacy 56.3 ml/min; Est GFR (African American) 61.7; Est GFR (Non-African American) 53.3; Potassium 3.7 mmol/L (3.5-5.1)
[2019-05-25] MEDS: TRAMADOL HCL 50 MG TABLET PO PRN ×2 (09:25→13:53)
[2019-05-25] MEDS: ATORVASTATIN 20 MG TAB PO SCH (09:27)
[2019-05-25] MEDS: NICOTINE 21 MG/24 HR TDSY TD SCH (09:28)
[2019-05-25] MEDS: POLYETHYLENE (MIRALAX) 17 GM PACK PO SCH ×2 (09:29→21:32)
[2019-05-25] MEDS: INSULIN GLARGINE SOLOSTAR 100 UNITS/ML 3 ML PEN SC SCH ×2 (09:30→21:49)
[2019-05-25] MEDS: INSULIN ASPART 100 UNITS/ML 3 ML PEN SC SCH ×4 (09:31→21:47)
--- NOTE | 2019-05-25 09:39 | Orthopedic Progress Note ---
Date of Service May 25, 2019 Assessment & Plan (1) Spinal stenosis: This time we will continue physical therapy possible discharge tomorrow need even today pending his results. I will obtain some baseline x-rays. Present on Admission?: Yes Subjective Patient somewhat improved today. Still concerned with his lightheaded episodes. Physical Exam Physical Exam: Patient is good strength testing. Is sitting in bed. Results & Data Vital Signs (Past 12 Hours) Vital Signs Temp Pulse Resp BP Pulse Ox 05/25/19 07:17 36.9 C 80 18 106/62 95 05/24/19 23:45 36.7 C 85 18 101/61 95
--- NOTE | 2019-05-25 10:42 | Hospitalist Progress Note ---
Date of Service May 25, 2019 Assessment & Plan (1) Acute blood loss as cause of postoperative anemia: Patient developed acute blood loss anemia postoperatively/ Status post 3 units of PRBC transfusion Hemoglobin remained stable 8.7 Continue to monitor Significant orthostatic hypotension with symptoms Continue to be hypotensive when standing up, significant orthostatic drop of blood pressure associated with symptom of dizzy spell and lightheadedness Diuretics has been discontinued was given IV fluids yesterday Will order for more IV fluids today, continue to monitor orthostatic vitals We will transfer to rehab today (2) Postoperative state: Status post lumbar decompression and fusion on 05/18. Pain controlled with current regimen. Continues with PT/OT-marked orthostatic hypotension noted during PT evaluation Ortho following, appreciate input Patient will need skilled rehab, will hold transfer to rehab today secondary to blood pressure fluctuation (3) Spinal stenosis: Status post lumbar decompression and fusion on 05/18: Dr. Isaacs (4) Postoperative hypovolemic shock: resolved, Developed orthostatic hypotension, Diuretics discontinued, will order for IV fluids Continue to monitor vitals, fall precaution (5) Hypertension: -Orthostatic hypotension noted, HCTZ and lisinopril discontinued Ordered for IV fluids We will hold Cardizem for now. (6) Diabetes mellitus, type II: Uncontrolled A1c at baseline which is 7.8. Around goal. Cont to monitor on current regimen. (7) Hyperlipidemia: -Continue atorvastatin per home regimen (8) CKD (chronic kidney disease): Developed acute renal failure, underlying CKD stage III possible diabetic nephropathy Given IV fluids, HCTZ/sinopril kept on hold Creatinine improved back to normal We will give IV fluids secondary to orthostatic hypotension Avoid NSAIDs and contrast study (9) Tobacco use: Smoking cessation strongly encouraged. NicoDerm patch daily given. (10) DVT prophylaxis: SCDs/ambulation. CODE STATUS: Full code Disposition-to rehab at time of discharge. Patient was scheduled to be transferred to rehab at [place] Given multiple medical complication, transfer to rehab will be kept on hold Of care discussed with patient, and case management Patient may do better going to skilled rehab locally at [facility] Patient's of family physician Dr. Kinacid in [facility] group follows patient at [facility] Patient will also be able to have orthopedics follow-up with Dr. Isaacs if staying locally We will discussed with patient's family regarding referral to [facility] for skilled rehab Subjective Patient was found to be significantly orthostatic during physical therapy today, While standing blood pressure dropped to 93/83(supine BP was 130/80) with tachycardia heart rate 110 Patient was very symptomatic with feeling of dizzy lightheaded cold and clammy Patient was safely sitting down to chair, Took him at least 15 minutes for symptom to gradually resolved Denies of any shortness of breath or chest heaviness No fever or chills Had frequent urination with dysuria started this morning Patient is medically unstable to transfer to rehab today, due to significant orthostatic hypotension with symptoms during standing or minimal physical activity Patient is also reluctant to go to rehab at [place], as worried about his blood pressure dropping so low, Review of Systems Constitutional: as per Subjective / HPI Dizzy spell, lightheadedness while standing Respiratory: + cough and + wheezing Dry nonproductive cough Genitourinary: + dysuria and + urinary frequency Physical Exam Constitutional: comfortable Eyes: PERRL, conjunctivae normal, anicteric sclerae EOM intact bilaterally ENMT: external ear and nose normal, oropharynx normal Neck: normal visual inspection Respiratory: normal respiratory effort Cardiovascular: Rate/Rhythm: regular rate and regular rhythm Gastrointestinal (Abdomen): normal bowel sounds, soft, nontender, no hepatosplenomegaly Musculoskeletal: Head/Neck/Chest: normocephalic and head atraumatic Status post spinal decompression surgery Neurologic: PERRL, EOMI, accommodation nl, no face palsy, no dysarthria Psychiatric: A+Ox3, euthymic affect Results & Data Vital Signs (Past 12 Hours) Vital Signs Temp Pulse Resp BP Pulse Ox 05/25/19 10:24 100/62 05/25/19 07:17 36.9 C 80 18 106/62 95 05/24/19 23:45 36.7 C 85 18 101/61 95
[2019-05-25] MEDS ORDERED: SODIUM CHLORIDE 0.9% 1000ML 1,000 ML IV SCH (10:45)
[2019-05-25 10:58] LABS: Appearance Urine Clear (Clear); Bacteria Urine Automated Negative (Negative); Bilirubin Urine Negative (Negative); Blood Urine Negative (Negative); Color Urine Yellow; Epithelial Cell Urine Auto 20-30 /lpf (0-5); Glucose Urine UA Negative (Negative); Ketones Urine Negative (Negative); Leukocyte Esterase Urine Trace (Negative); Nitrite Urine Negative (Negative); Protein Urine Negative (Negative); RBC Urine Automated 0-4 /hpf (0-4); Specific Gravity Urine 1.018 (1.000-1.030); Urobilinogen Urine Negative (Negative); pH Urine 5.5 (4.5-7.5)
--- NOTE | 2019-05-25 11:47 | XRay Report ---
XR lumbar spine 2-3V CLINICAL HISTORY: Postop COMPARISON STUDY: No previous studies for comparison. FINDINGS: There are right upper quadrant calcifications consistent with gallbladder calculi. There ar e postsurgical changes present within the spine. There is evidence of an L4-5 discectomy and interbod y fusion. There are lumbar laminectomy changes. There is evidence for a posterior pedicle screw and r od fusion extending from the T11-S1 level. There is a grade 1 spondylolisthesis of L4 on L5. IMPRESSION: 1. Postsurgical changes of a T11-S1 spinal fusion 2. Cholelithiasis ACT 112: Negative or not required by law. Electronically signed by: Jordan Fontanez M.D. 05/25/2019 11:46 AM
--- NOTE | 2019-05-25 11:51 | XRay Report ---
XR pelvis 1-2V routine CLINICAL HISTORY: Bilateral hip pain. COMPARISON STUDY: None. FINDINGS: Posterior decompression and fusion within the lower lumbar spine with pedicle screws and ro ds. The visualized hardware appears intact. No fractures within the pelvis or hips. The sacrum is int act. Mild cartilage space narrowing and small marginal osteophytes within the bilateral hips and with in the sacroiliac joints consistent with degenerative change. 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 No fractures. ACT 112: Negative or not required by law. Electronically signed by: Byron Stanton M.D. 05/25/2019 11:50 AM
[2019-05-25] MEDS: CHOLECALCIFEROL 1,000 UNITS 25 MCG TAB PO SCH (21:30)
[2019-05-25] MEDS: DOCUSATE SODIUM/SENNA 50/8.6MG TAB PO SCH (21:45)
[2019-05-25] MEDS: MAGNESIUM OXIDE 400 MG TAB PO SCH (21:45)
[2019-05-25] MEDS ORDERED: LIDOCAINE 2% JELLY 5 ML TUBE ONE (22:02)
[2019-05-26] MEDS: TRAMADOL HCL 50 MG TABLET PO PRN (00:51)
[2019-05-26] MEDS: LIDOCAINE 2% JELLY 5 ML TUBE EXT PRN ×2 (06:33→22:13)
[2019-05-26 06:35] LABS: Hematocrit (blood only) 26.1 % (42-52); Hemoglobin 8.7 g/dL (14.0-18.0)
[2019-05-26 07:15] LABS: Appearance Urine Cloudy (Clear); Bacteria Urine Automated 2+ (Negative); Bilirubin Urine Negative (Negative); Blood Urine Negative (Negative); Cast Urine Automated 0 /lpf (0-5); Color Urine Yellow; Glucose Urine UA Negative (Negative); Ketones Urine Negative (Negative); Leukocyte Esterase Urine 1+ (Negative); Nitrite Urine Negative (Negative); Protein Urine Negative (Negative); RBC Urine Automated 0-4 /hpf (0-4); Specific Gravity Urine 1.015 (1.000-1.030); Urobilinogen Urine Negative (Negative); pH Urine >= 9.0 (4.5-7.5)
[2019-05-26 07:15] LABS: BUN Creatinine Ratio 21.7 (10-20); Calcium 8.8 mg/dl (8.5-10.1); Creatinine Clr Calc Pharmacy 64.1 ml/min; Est GFR (African American) 72.3; Est GFR (Non-African American) 62.3
[2019-05-26] MEDS: NICOTINE 21 MG/24 HR TDSY TD SCH (09:04)
[2019-05-26] MEDS: POLYETHYLENE (MIRALAX) 17 GM PACK PO SCH ×2 (09:04→21:54)
[2019-05-26] MEDS: ATORVASTATIN 20 MG TAB PO SCH (09:05)
[2019-05-26] MEDS: INSULIN GLARGINE SOLOSTAR 100 UNITS/ML 3 ML PEN SC SCH ×2 (09:06→22:03)
[2019-05-26] MEDS: INSULIN ASPART 100 UNITS/ML 3 ML PEN SC SCH ×4 (09:09→22:04)
[2019-05-26] MEDS: OXYCODONE HCL IR 5 MG TAB (IMMEDIATE RELEASE) PO PRN ×2 (12:06→18:57)
--- NOTE | 2019-05-26 12:34 | Hospitalist Progress Note ---
Date of Service May 26, 2019 Assessment & Plan (1) Acute blood loss as cause of postoperative anemia: Patient developed acute blood loss anemia postoperatively/ Status post 3 units of PRBC transfusion Hemoglobin remained stable 8.7 Continue to monitor Significant orthostatic hypotension with symptoms symptom has improvd today no significant drop of BP with change of position did not had any symptoms of dizzy spell or lightheadednsss on standing Diuretics has been discontinued RT GROIN PAIN : mri of pelvis shows DJD of rt hip joint pain control will ask Ortho to evaluate - cont PT/OT , wt bearing as tolerated (2) Postoperative state: Status post lumbar decompression and fusion on 05/18. Pain controlled with current regimen. Continues with PT/OT Ortho following, appreciate input (3) Spinal stenosis: Status post lumbar decompression and fusion on 05/18: Dr. Isaacs (4) Postoperative hypovolemic shock: resolved, Developed orthostatic hypotension, Diuretics discontinued, given IV fluids Continue to monitor vitals, fall precaution (5) Hypertension: -Orthostatic hypotension noted, HCTZ and lisinopril discontinued . (6) Diabetes mellitus, type II: Uncontrolled A1c at baseline which is 7.8. Around goal. Cont to monitor on current regimen. (7) Hyperlipidemia: -Continue atorvastatin per home regimen (8) CKD (chronic kidney disease): Developed acute renal failure, underlying CKD stage III possible diabetic nephropathy Given IV fluids, HCTZ/sinopril kept on hold Creatinine improved back to normal We will give IV fluids secondary to orthostatic hypotension Avoid NSAIDs and contrast study (9) Tobacco use: Smoking cessation strongly encouraged. NicoDerm patch daily given. (10) DVT prophylaxis: SCDs/ambulation. CODE STATUS: Full code Disposition-to rehab at time of discharge. Patient was scheduled to be transferred to rehab at [place] Given multiple medical complication, transfer to rehab will be kept on hold Subjective Patient continues to have right groin pain with ambulation and weightbearing. Denies any leg weakness. Denies any radicular complaints. Review of Systems Constitutional: as per Subjective / HPI Dizzy spell, lightheadedness while standing Respiratory: + cough and + wheezing Dry nonproductive cough Genitourinary: + dysuria and + urinary frequency Physical Exam Constitutional: comfortable Eyes: PERRL, conjunctivae normal, anicteric sclerae EOM intact bilaterally ENMT: external ear and nose normal, oropharynx normal Neck: normal visual inspection Respiratory: normal respiratory effort Cardiovascular: Rate/Rhythm: regular rate and regular rhythm Gastrointestinal (Abdomen): normal bowel sounds, soft, nontender, no hepatosplenomegaly Musculoskeletal: Head/Neck/Chest: normocephalic and head atraumatic Neurologic: PERRL, EOMI, accommodation nl, no face palsy, no dysarthria Psychiatric: A+Ox3, euthymic affect Results & Data Vital Signs (Past 12 Hours) Vital Signs Temp Pulse Resp BP Pulse Ox 05/26/19 07:57 36.7 C 87 20 110/67 92
--- NOTE | 2019-05-26 15:06 | Magnetic Resonance Report ---
MRI OF THE PELVIS AND HIPS WITHOUT CONTRAST CLINICAL HISTORY: Right hip and groin pain. Recent lumbar surgery. COMPARISON STUDY: Pelvis radiograph May 25, 2019. TECHNIQUE: Utilizing a 1.5 Charline magnet and dedicated coil, multiplanar, multiecho imaging of the pel vis and hips was performed without intravenous contrast. FINDINGS: Postoperative findings within the lumbosacral spine are partially imaged on this examinatio n. The sacroiliac joints and symphysis pubis are intact. There is no marrow edema or marrow replaceme nt within the pelvis or hips. There is no evidence for fracture. There is mild edema within the left gluteus medius which extends toward the greater trochanter. No hip joint effusion is present. There i s mild joint space narrowing and osteophytosis of both hips. Fluid anterior to the right femoral neck is likely within the iliopsoas bursa. There is no evidence for avascular necrosis of the femoral hea ds. There is no pelvic lymphadenopathy. No pelvic masses identified on this unenhanced exam. Caliber of visualized small and large bowel are normal. There is a moderate amount of stool within the rectum . Small fat-containing right inguinal hernia is present. Each acetabular labrum is suboptimally asses sed on this nonarthrogram exam. There is abnormal signal within the right labrum consistent with tear . IMPRESSION: 1. No fracture or suspicious marrow replacement within the pelvis or hips. 2. Mild bilateral hip osteoarthritis. Abnormal signal and morphology of the right acetabular labrum c onsistent with a tear, likely old. 3. Small amount of fluid within the right iliopsoas bursa. No hip joint effusion. 4. Mild edema within the left gluteus medius which extends toward the greater trochanter. ACT 112: Negative or not required by law. Electronically signed by: Ted Storey M.D. 05/26/2019 3:05 PM
--- NOTE | 2019-05-26 15:13 | Orthopedic Progress Note ---
Date of Service May 26, 2019 Assessment & Plan (1) Acute right hip pain: At this time we will continue to attempt physical therapy. If he is unable to tolerate this we may consider orthopedic evaluation of the right hip or possibly a diagnostic right intra-articular hip injection. The MRI does have evidence of possible labral tear within the hip. There is no evidence of a fracture. Present on Admission?: No Subjective Patient continues to have right groin pain with ambulation and weightbearing. He has normal complaints with lumbosacral back pain considering his postoperative setting. Denies any leg weakness. Denies any radicular complaints. Physical Exam Physical Exam: On exam his incision is clean dry and intact. He has no significant pain to palpation of the lumbar musculature. There is no erythema or redness. He is able to sit up in bed. He has a negative logroll. However when I have him stand he has significant discomfort with weightbearing to the right lower extremity. The pain centers around his right groin. There is no radicular component. He has excellent strength testing. Results & Data Vital Signs (Past 12 Hours) Vital Signs Temp Pulse Resp BP Pulse Ox 05/26/19 07:57 36.7 C 87 20 110/67 92
[2019-05-26] MEDS: MAGNESIUM OXIDE 400 MG TAB PO SCH (21:54)
[2019-05-26] MEDS: CHOLECALCIFEROL 1,000 UNITS 25 MCG TAB PO SCH (21:54)
[2019-05-26] MEDS: DOCUSATE SODIUM/SENNA 50/8.6MG TAB PO SCH (22:01)
[2019-05-27] MEDS: TRAMADOL HCL 50 MG TABLET PO PRN ×2 (00:40→09:58)
[2019-05-27] MEDS: LIDOCAINE 2% JELLY 5 ML TUBE EXT PRN (02:46)
[2019-05-27] MEDS: INSULIN ASPART 100 UNITS/ML 3 ML PEN SC SCH ×4 (09:22→21:12)
[2019-05-27] MEDS: INSULIN GLARGINE SOLOSTAR 100 UNITS/ML 3 ML PEN SC SCH ×2 (09:22→21:11)
[2019-05-27] MEDS: ATORVASTATIN 20 MG TAB PO SCH (09:23)
[2019-05-27] MEDS: NICOTINE 21 MG/24 HR TDSY TD SCH (09:24)
[2019-05-27] MEDS: POLYETHYLENE (MIRALAX) 17 GM PACK PO SCH ×2 (09:24→21:07)
--- NOTE | 2019-05-27 13:27 | Orthopedic Progress Note ---
Date of Service May 27, 2019 Assessment & Plan (1) Neurogenic claudication due to lumbar spinal stenosis: At this time we will continue physical therapy transfer to chairs. Have encouraged him to sit the chair at all times when eating meals. Overall I am somewhat at a loss to his pain patterns. They seem to change on a regular basis. His imaging thus far has been fairly benign. Nevertheless we will continue with activity as tolerated. Hopefully rehab early next week. Present on Admission?: Yes Subjective Patient states his right groin pain is markedly improved today. He now complain s of some pain in the left hip and buttock. His back pain with prolonged sitting. He does not have any pain in the legs and numbness is improved overall. Physical Exam Physical Exam: On exam he is able to sit him up in bed. He has negative logroll bilaterally. Excellent strength testing bilateral lower extremities. He is able to lift his legs off the bed without difficulty or pain. Sensory symmetric and intact.. Results & Data Vital Signs (Past 12 Hours) Vital Signs Temp Pulse Resp BP Pulse Ox 05/27/19 06:52 36.8 C 90 20 130/76 94
[2019-05-27] MEDS: OXYCODONE HCL IR 5 MG TAB (IMMEDIATE RELEASE) PO PRN ×2 (13:43→21:19)
--- NOTE | 2019-05-27 16:56 | Hospitalist Progress Note ---
Date of Service May 27, 2019 Assessment & Plan (1) Acute blood loss as cause of postoperative anemia: Patient developed acute blood loss anemia postoperatively/ Status post 3 units of PRBC transfusion Hemoglobin remained stable 8.7 Continue to monitor Significant orthostatic hypotension with symptoms symptom has improvd today no significant drop of BP with change of position cardizem resumed-with holding parameters did not had any symptoms of dizzy spell or lightheadednsss on standing Diuretics has been discontinued BILATERAL HIP PAIN : mri of pelvis shows DJD of rt hip joint pain control will ask Ortho to evaluate - cont PT/OT , wt bearing as tolerated (2) Postoperative state: Status post lumbar decompression and fusion on 05/18. Pain controlled with current regimen. Continues with PT/OT Ortho following, appreciate input (3) Spinal stenosis: Status post lumbar decompression and fusion on 05/18: Dr. Isaacs (4) Postoperative hypovolemic shock: resolved, Developed orthostatic hypotension, Diuretics discontinued, given IV fluids Continue to monitor vitals, fall precaution (5) Hypertension: -CARDIZEM resumed HCTZ and lisinopril discontinued . (6) Diabetes mellitus, type II: HB A1c at baseline which is 7.8. Around goal. Cont to monitor on current regimen. (7) Hyperlipidemia: -Continue atorvastatin per home regimen (8) CKD (chronic kidney disease): Developed acute renal failure, underlying CKD stage III possible diabetic nephropathy Given IV fluids, HCTZ/sinopril kept on hold Creatinine improved back to normal We will give IV fluids secondary to orthostatic hypotension Avoid NSAIDs and contrast study (9) Tobacco use: Smoking cessation strongly encouraged. NicoDerm patch daily given. (10) DVT prophylaxis: SCDs/ambulation. CODE STATUS: Full code Disposition-to rehab at time of discharge. Patient was scheduled to be transferred to rehab at [place] Given multiple medical complication, transfer to rehab will be kept on hold Subjective continues to have right hip pain worse with movement and attempt to stand or walk experiencing left hip pain since am no cough , no fever or chills back pain much better since surgery Blood pressure been stable worried about being off all his BP meds , which can raise his BP too high home med: Cardizem 120 mg daily -resumed cont to hold diuretics Review of Systems Constitutional: Dizzy spell, lightheadedness while standing Respiratory: Dry nonproductive cough Musculoskeletal: as per Subjective / HPI and + joint pain (Bilateral hip pain ) Physical Exam Constitutional: comfortable Eyes: PERRL, conjunctivae normal, anicteric sclerae EOM intact bilaterally ENMT: external ear and nose normal, oropharynx normal Neck: normal visual inspection Respiratory: normal respiratory effort Cardiovascular: Rate/Rhythm: regular rate and regular rhythm Gastrointestinal (Abdomen): normal bowel sounds, soft, nontender, no hepatosplenomegaly Musculoskeletal: Head/Neck/Chest: normocephalic and head atraumatic Neurologic: PERRL, EOMI, accommodation nl, no face palsy, no dysarthria Psychiatric: A+Ox3, euthymic affect Results & Data Vital Signs (Past 12 Hours) Vital Signs Temp Pulse Resp BP Pulse Ox 05/27/19 14:55 36.8 C 99 H 16 138/71 97 05/27/19 06:52 36.8 C 90 20 130/76 94
[2019-05-27] MEDS: cefTRIAXone SODIUM 2,000 MG in DEXTROSE 5% 50 ML IV SCH (19:10)
[2019-05-27] MEDS: CHOLECALCIFEROL 1,000 UNITS 25 MCG TAB PO SCH (21:07)
[2019-05-27] MEDS: MAGNESIUM OXIDE 400 MG TAB PO SCH (21:07)
[2019-05-27] MEDS: DOCUSATE SODIUM/SENNA 50/8.6MG TAB PO SCH (21:07)
[2019-05-28] MEDS: TRAMADOL HCL 50 MG TABLET PO PRN ×3 (03:10→18:46)
[2019-05-28] MEDS: OXYCODONE HCL IR 5 MG TAB (IMMEDIATE RELEASE) PO PRN (08:36)
[2019-05-28] MEDS: dilTIAZem HCL 120 MG CAPCR PO SCH (09:06)
[2019-05-28] MEDS: MIDODRINE HCL 2.5 MG TAB PO SCH ×4 (09:06→19:30)
[2019-05-28] MEDS: ATORVASTATIN 20 MG TAB PO SCH (09:07)
[2019-05-28] MEDS: INSULIN GLARGINE SOLOSTAR 100 UNITS/ML 3 ML PEN SC SCH ×2 (09:16→20:38)
[2019-05-28] MEDS: INSULIN ASPART 100 UNITS/ML 3 ML PEN SC SCH ×4 (09:16→20:40)
[2019-05-28] MEDS: NICOTINE 21 MG/24 HR TDSY TD SCH (09:17)
[2019-05-28] MEDS ORDERED: predniSONE 20 MG TAB PO STA (10:36)
--- NOTE | 2019-05-28 11:01 | Hospitalist Progress Note ---
Date of Service May 28, 2019 Assessment & Plan (1) Acute blood loss as cause of postoperative anemia: BILATERAL HIP PAIN : mri of pelvis shows DJD of rt hip joint /pt complains of severe bilateral hip pain , unable to stand UOC Orthopedics consulted for evaluation /steroid injection started on PO Prednisone already cont PT/OT , wt bearing as tolerated ACUTE BLOOD LOSS ANEMIA Patient developed acute blood loss anemia postoperatively/ Status post 3 units of PRBC transfusion Hemoglobin remained stable 8.7 repeat H&H ordered for continued orthostatic hypotension Significant orthostatic hypotension with symptoms tachycardia and significant bP drop with dizzy spell noted ordered for IV fluid cardizem -with holding parameters Diuretics d/aziza ordered for Midodrine URINARY TRACT INFECTION : urine culture : proteus , pansensitive on rocephin , can be changed to PO on discharge URINARY RETENTION : pt complained for increased frequency of urination and dysuria -possible due to UTI , tx as above needed frequent straight as post void urine > 400 ml Lennon catheter placed Lennon was removed 2 days back for voiding trial large amount of post void urine vol noted lennon re inserted Urology consult requested pt may not tolerate Flomax as already has significant orthostatic hypotension (2) Postoperative state: Status post lumbar decompression and fusion on 05/18. Pain controlled with current regimen. Continues with PT/OT Ortho following, appreciate input (3) Spinal stenosis: Status post lumbar decompression and fusion on 05/18: Dr. Isaacs (4) Postoperative hypovolemic shock: resolved, Developed orthostatic hypotension, Diuretics discontinued, given IV fluids Continue to monitor vitals, fall precaution (5) Hypertension: -CARDIZEM resumed HCTZ and lisinopril discontinued . (6) Diabetes mellitus, type II: HB A1c at baseline which is 7.8. Around goal. Cont to monitor on current regimen. (7) Hyperlipidemia: -Continue atorvastatin per home regimen (8) CKD (chronic kidney disease): Developed acute renal failure, underlying CKD stage III possible diabetic nephropathy Given IV fluids, HCTZ/sinopril kept on hold Creatinine improved back to normal We will give IV fluids secondary to orthostatic hypotension Avoid NSAIDs and contrast study (9) Tobacco use: Smoking cessation strongly encouraged. NicoDerm patch daily given. (10) DVT prophylaxis: SCDs/ambulation. CODE STATUS: Full code Disposition-to rehab at time of discharge. Patient was scheduled to be transferred to rehab at [place] Given multiple medical complication, transfer to rehab will be kept on hold Subjective persisted bilateral hip pain now left is worse that right unable to stand /bear weight due to severe pain Review of Systems Constitutional: Dizzy spell, lightheadedness while standing Respiratory: no cough Genitourinary: + problem reported (urinary retention ) Musculoskeletal: as per Subjective / HPI and + joint pain (Bilateral hip pain ) bilateral hip /groin pain Physical Exam Constitutional: comfortable Eyes: PERRL, conjunctivae normal, anicteric sclerae EOM intact bilaterally ENMT: external ear and nose normal, oropharynx normal Neck: normal visual inspection Respiratory: normal respiratory effort Cardiovascular: Rate/Rhythm: regular rate and regular rhythm Gastrointestinal (Abdomen): normal bowel sounds, soft, nontender, no hepatosplenomegaly Musculoskeletal: Head/Neck/Chest: normocephalic and head atraumatic Neurologic: PERRL, EOMI, accommodation nl, no face palsy, no dysarthria Psychiatric: A+Ox3, euthymic affect Results & Data Vital Signs (Past 12 Hours) Vital Signs Temp Pulse Resp BP Pulse Ox 05/28/19 08:24 36.7 C 94 H 19 138/73 95 05/28/19 03:04 36.7 C 96
--- NOTE | 2019-05-28 11:02 | Orthopedic Progress Note ---
Date of Service May 28, 2019 Assessment & Plan (1) Neurogenic claudication due to lumbar spinal stenosis: At this time we will continue physical therapy transfers to his chair. Of asked that he eat all meals while sitting in a chair. We will plan for rehab early next week. Present on Admission?: Yes Subjective Patient complaining of intermittent pain with prolonged sitting but otherwise improving. Results & Data Vital Signs (Past 12 Hours) Vital Signs Temp Pulse Resp BP Pulse Ox 05/28/19 08:24 36.7 C 94 H 19 138/73 95 05/28/19 03:04 36.7 C 96
[2019-05-28] MEDS: POLYETHYLENE (MIRALAX) 17 GM PACK PO SCH ×2 (17:27→20:37)
[2019-05-28] MEDS ORDERED: SODIUM CHLORIDE 0.9% 1000ML 1,000 ML IV SCH (17:45)
[2019-05-28] MEDS ORDERED: SODIUM CHLORIDE 0.9% 1000ML 500 ML IV ONE (17:46)
[2019-05-28] MEDS ORDERED: ETHYL CHLORIDE AER SPR 100 ML CAN EXT ONE (18:00)
[2019-05-28] MEDS ORDERED: BUPIVACAINE 0.5 % 5 MG/1 ML MPF 30ML VIAL IA ONE (18:00)
[2019-05-28] MEDS ORDERED: methylPREDNISolone acetate 80 MG/ML VIAL IA ONE (18:00)
[2019-05-28 18:10] LABS: Hematocrit (blood only) 30.4 % (42-52); Hemoglobin 10.2 g/dL (14.0-18.0)
[2019-05-28 18:28] LABS: BUN Creatinine Ratio 19.5 (10-20); Calcium 8.7 mg/dl (8.5-10.1); Est GFR (African American) 64.1; Est GFR (Non-African American) 55.3; Potassium 4.2 mmol/L (3.5-5.1)
[2019-05-28] MEDS: cefTRIAXone SODIUM 2,000 MG in DEXTROSE 5% 50 ML IV SCH (18:32)
[2019-05-28] MEDS: MAGNESIUM OXIDE 400 MG TAB PO SCH (20:37)
[2019-05-28] MEDS: CHOLECALCIFEROL 1,000 UNITS 25 MCG TAB PO SCH (20:39)
[2019-05-28] MEDS: DOCUSATE SODIUM/SENNA 50/8.6MG TAB PO SCH (20:48)
--- NOTE | 2019-05-28 22:26 | Consultation Report ---
DATE OF CONSULTATION: 05/28/2019 HISTORY OF PRESENT ILLNESS: This is a 73-year-old gentleman seen at the request of Dr. Cartwright for bilateral hip pain. This is a patient of Dr. Isaacs who has had extensive lumbar spine fusion from T11-S1 on 05/18/2019. His neurogenic pain has been improved and his postsurgical course has been within normal limits for the spine surgery. However, he has noted bilateral hip pain which has limited his ability to ambulate and perform physical therapy as requested. The patient had no recent falls, no trauma, and he had some intermittent hip pain throughout the years, however, this has been limiting his progress during this visit. PAST MEDICAL HISTORY: For degenerative joint disease, CKD stage III, NIDDM, hyperlipidemia, hypertension, obesity, paroxysmal supraventricular tachycardia, spinal stenosis. PAST SURGICAL HISTORY: Lumbar spinal fusion on 05/18/2019; history of anesthesia reaction as a child; status post tonsillectomy; history of carpal tunnel surgery, left; colonoscopy; repair of left rotator cuff; right knee surgery x2; history of tonsillectomy. ALLERGIES: No known drug allergies. HOME MEDICATIONS: Aspirin, atorvastatin, vitamin D3, Cardizem CD, lisinopril, metformin, and ibuprofen. SOCIAL HISTORY: He uses a pipe daily for tobacco, occasional cigarettes. He drinks beer occasionally. Denies drug use. He lives home alone. He is retired. PHYSICAL EXAMINATION: This is a pleasant 73-year-old gentleman who is lying supine in his hospital room bed. He is alert and oriented x3. Speech clear and fluent. Affect is appropriate. He is obese. Examination of the bilateral hips demonstrates skin warm, dry, and intact. Cap refill less than 2 seconds. He has tenderness to palpation of the greater trochanters of both right and left. He has minimal groin pain with palpation. He has some discomfort with log roll testing with minor irritability. He has limited flexibility of his hip joints with both internal and external rotation and abduction. No crepitation is palpated with range of motion of the hips. No edema. No effusions of the hips. Dorsalis pedis and posterior tibialis pulses are 2/4 bilaterally. Sensation is intact to bilateral feet. Extensor hallucis longus function is 4+/5, bilaterally symmetric. Plantar flexion strength is 5/5 bilaterally. DIAGNOSTIC DATA: Radiographs and MRI of the pelvis demonstrate osteoarthritis of bilateral hips, more pronounced on the right than the left with marginal osteophytes, some narrowing and sclerosis. Joint spaces are present, however. He has had recent spinal surgery with instrumented fusion. No acute fractures. He has enthesophytes along the greater trochanters bilaterally. MRI reviewed, demonstrates some inflammation at the greater trochanters bilaterally reflecting osteoarthritis bilaterally with a labral tear on the right hip which is remote. Recent spinal fusion is also evident. No acute fractures. IMPRESSION: 1. Bilateral hip mild degenerative joint disease. 2. Old right labral tear. 3. Trochanteric bursitis bilaterally. 4. Bilateral hip osteoarthritis. 5. Recent T11-S1 fusion on 05/18/[address] Isaacs. RECOMMENDATION: We will perform a trochanteric bursa injection on the most symptomatic hip, most likely the right hip, tomorrow. We will continue recommendation for physical therapy, occupational therapy as tolerated. May require further management of his hip osteoarthritis as an outpatient. Thank you for the opportunity to consult in care of this patient. SABA
[2019-05-29] MEDS: TRAMADOL HCL 50 MG TABLET PO PRN ×5 (00:16→23:06)
[2019-05-29] MEDS: OXYCODONE HCL IR 5 MG TAB (IMMEDIATE RELEASE) PO PRN (02:49)
[2019-05-29] MEDS ORDERED: Nursing to Pharmacy Communication ONE (06:00)
[2019-05-29] MEDS: MIDODRINE HCL 2.5 MG TAB PO SCH ×3 (08:46→17:52)
[2019-05-29] MEDS: POLYETHYLENE (MIRALAX) 17 GM PACK PO SCH ×2 (08:46→21:02)
[2019-05-29] MEDS: dilTIAZem HCL 120 MG CAPCR PO SCH (08:46)
[2019-05-29] MEDS: ATORVASTATIN 20 MG TAB PO SCH (08:46)
[2019-05-29] MEDS: predniSONE 20 MG TAB PO SCH (08:47)
[2019-05-29] MEDS: INSULIN ASPART 100 UNITS/ML 3 ML PEN SC SCH ×4 (09:18→21:02)
[2019-05-29] MEDS: INSULIN GLARGINE SOLOSTAR 100 UNITS/ML 3 ML PEN SC SCH ×2 (09:20→21:00)
[2019-05-29] MEDS: NICOTINE 21 MG/24 HR TDSY TD SCH (10:17)
--- NOTE | 2019-05-29 10:56 | Hospitalist Progress Note ---
Date of Service May 29, 2019 Assessment & Plan (1) Acute blood loss as cause of postoperative anemia: BILATERAL HIP PAIN : mri of pelvis shows DJD of rt hip joint /pt complains of severe bilateral hip pain , unable to stand UOC Orthopedics consulted for evaluation appreciate input, status post left hip joint steroid injection for trochanteric bursitis started on PO Prednisone already Patient reports mildly elevated improvement of symptom cont PT/OT , wt bearing as tolerated ACUTE BLOOD LOSS ANEMIA Patient developed acute blood loss anemia postoperatively/ Status post 3 units of PRBC transfusion Hemoglobin remained stable 8.7 repeat H&H ordered for continued orthostatic hypotension Significant orthostatic hypotension with symptoms tachycardia and significant bP drop with dizzy spell noted ordered for IV fluid cardizem -with holding parameters Diuretics d/aziza ordered for Midodrine URINARY TRACT INFECTION : urine culture : proteus , pansensitive on rocephin , can be changed to PO on discharge URINARY RETENTION : pt complained for increased frequency of urination and dysuria -possible due to UTI , tx as above needed frequent straight as post void urine > 400 ml Lennon catheter placed Lennon was removed 2 days back for voiding trial large amount of post void urine vol noted lennon re inserted Urology consult appreciated, started on finasteride, Will because of urinary retention -BPH, Continue Lennon catheter on discharge to rehab, outpatient follow-up for voiding trial (2) Postoperative state: Status post lumbar decompression and fusion on 05/18. Pain controlled with current regimen. Continues with PT/OT Ortho following, appreciate input (3) Spinal stenosis: Status post lumbar decompression and fusion on 05/18: Dr. Isaacs (4) Postoperative hypovolemic shock: resolved, Developed orthostatic hypotension, Diuretics discontinued, given IV fluids Continue to monitor vitals, fall precaution (5) Hypertension: -CARDIZEM resumed HCTZ and lisinopril discontinued . (6) Diabetes mellitus, type II: HB A1c at baseline which is 7.8. Around goal. Cont to monitor on current regimen. (7) Hyperlipidemia: -Continue atorvastatin per home regimen (8) CKD (chronic kidney disease): Developed acute renal failure, underlying CKD stage III possible diabetic nephropathy Given IV fluids, HCTZ/sinopril kept on hold Creatinine improved back to normal We will give IV fluids secondary to orthostatic hypotension Avoid NSAIDs and contrast study (9) Tobacco use: Smoking cessation strongly encouraged. NicoDerm patch daily given. (10) DVT prophylaxis: SCDs/ambulation. CODE STATUS: Full code Disposition-to rehab at time of discharge. Patient was scheduled to be transferred to rehab at [place] And to transfer to rehab next 1 to 2 days if bilat hip pain improves and off for patient to participate in PT OT Subjective hip pain improved somewhat still very difficult to bear wt s/p left trochateric bursa steroid injection given by Dr Gomez today Back pain is tolerable no fever or chills Review of Systems Genitourinary: + problem reported (urinary retention ) Musculoskeletal: as per Subjective / HPI and + joint pain (Bilateral hip pain ) bilateral hip /groin pain Physical Exam Constitutional: comfortable Eyes: PERRL, conjunctivae normal, anicteric sclerae EOM intact bilaterally ENMT: external ear and nose normal, oropharynx normal Neck: normal visual inspection Respiratory: normal respiratory effort Cardiovascular: Rate/Rhythm: regular rate and regular rhythm Gastrointestinal (Abdomen): normal bowel sounds, soft, nontender, no hepatosplenomegaly Musculoskeletal: Head/Neck/Chest: normocephalic and head atraumatic Neurologic: PERRL, EOMI, accommodation nl, no face palsy, no dysarthria Psychiatric: A+Ox3, euthymic affect Results & Data Vital Signs (Past 12 Hours) Vital Signs Temp Pulse Resp BP Pulse Ox 05/29/19 08:35 36.8 C 90 19 146/71 H 95 05/29/19 00:41 36.7 C 22 96
--- NOTE | 2019-05-29 10:57 | Orthopedic Progress Note ---
Date of Service May 29, 2019 Assessment & Plan (1) Neurogenic claudication due to lumbar spinal stenosis: This time we will continue physical therapy today anticipate discharge to rehab tomorrow. Present on Admission?: Yes Subjective Pain is well controlled today. He feels much improved. Physical Exam Physical Exam: He has excellent strength testing. Results & Data Vital Signs (Past 12 Hours) Vital Signs Temp Pulse Resp BP Pulse Ox 05/29/19 08:35 36.8 C 90 19 146/71 H 95 05/29/19 00:41 36.7 C 22 96
--- NOTE | 2019-05-29 12:23 | Urology Consultation ---
Date of Consultation May 29, 2019 Assessment & Plan (1) BPH loc w urin obs/LUTS: (2) Acute urinary retention: A/P 73-year-old male with longstanding voiding bother, acute urinary retention. Patient's history and findings are consistent with longstanding BPH with acute worsening status post spine surgery, not an uncommon occurrence. I would agree that his history of significant orthostasis is a contraindication to the use of alpha blockers. We will start the patient on a 5 alpha reductase inhibitor in the form of finasteride daily which should not carry the risk of orthostasis. As discussed with the patient this will take months to have its full clinical effect. We will therefore leave the Herbert catheter indwelling in the meanwhile. Patient reports he is to be transferred on discharge to a rehabilitation facility in [facility]. We will attempt to arrange for trial of void and clean intermittent catheterization teaching for the short to medium term drainage of the patient's bladder. We will also consider follow-up with myself with cystoscopy as needed depending on his response to medical therapy. Ideally, we can avoid the need for a TURP in the future depending on the patient's progress. Patient vocalizes good understanding of urologic management and treatment plan. Thank you for allowing us to participate in this patient's acute inpatient care. Please recall our service as needed with any further urologic questions or concerns. History of Present Illness Reason for Consultation: Postoperative urinary retention. Attending Physician: Arjun Isaacs DO History of Present Illness 73-year-old male postoperative day #11 status post lumbar spine decompression and fusion who has had difficulties with postoperative urinary retention and failed trials of void. He currently has a Herbert catheter in place draining clear yellow urine. Patient reports that he has had longstanding urinary complaints, lasting at least 4 years including urgency, a sensation of incomplete emptying, nocturia, frequency of urination and a decrease in penile size. He has been too self-conscious to seek medical attention for these difficulties and has never seen urology in the past. Patient also has a history significant for significant orthostatic hypotension and reports a drop of his systolic blood pressure to 47 mmHg on standing in the past. His inpatient chart is reviewed. He denies any history of urologic surgery or inability to void in the past. He denies a history of hematuria. Recent pelvic MRI is personally reviewed and the patient's prostate is noted to be relatively unremarkable with no significant intravesical extension. No evidence of pelvic lymphadenopathy is appreciated. Most recent renal function testing noted to be within normal limits. Urology consultation is sought out to assist with his acute complaints. Allergies Allergy/AdvReac Type Severity Reaction Status Date / Time No Known Allergies Allergy Mild Verified 05/18/19 08:59 Home Medications Home Medications Medication Instructions Recorded Confirmed Type aspirin [Aspir-81] 81 mg PO QAM 04/22/19 05/18/19 History atorvastatin 20 mg PO QAM 04/22/19 05/18/19 History cholecalciferol (vitamin D3) 1,000 unit PO QPM 04/22/19 05/18/19 History [Vitamin D3] diltiazem HCl [Cardizem CD] 120 mg PO QAM 04/22/19 05/18/19 History metformin 1,000 mg PO BID 04/22/19 05/18/19 History oxycodone 5 mg PO Q6H PRN #30 tab 05/23/19 Rx tramadol 50 mg PO Q6H PRN #30 tab 05/23/19 Rx Patient History Medical History Alcohol use CKD (chronic kidney disease) stage III Diabetes NIDDM Diabetes mellitus, type II Hyperlipidemia Hypertension Obesity PSVT (paroxysmal supraventricular tachycardia) remote hx s/p cardiac workup including stress test/Zio monitor, diltiazem added/discharged from cardiology 2014 and advised to f/u PRN Spinal stenosis Tobacco use Surgical History History of anesthesia reaction slow to wake with tonsillectomy as child History of carpal tunnel surgery of left wrist History of colonoscopy History of repair of left rotator cuff History of right knee surgery X2 History of tonsillectomy Family History Father Family history of colon cancer Family history of diabetes mellitus Grandmother No problems noted. Brother Family history of diabetes mellitus Grandfather (Maternal) No problems noted. Grandmother (Paternal) Family history of diabetes mellitus Grandmother (Maternal) Family history of diabetes mellitus Social History Preferred Language: Azeri Communication Ability: Effective [employer] Resource [employer]ist Required: No Beliefs That Will Affect Care: None Current Living Situation: Alone Other Information That Helps Us Care for You: No Feels Safe at Home: Yes Smoking Status: Current every day smoker Tobacco Type: pipe ; Cigarettes Per Day: DAILY PIPE ; Do You Dip or Chew Tobacco: No ; Hx Alcohol Use: Yes Alcohol type: beer Hx Substance Use: No Review of Systems Constitutional: no fever and no chills Eyes: no diplopia Ear, Nose, Mouth, Throat: no ear trauma Respiratory: no hemoptysis Cardiovascular: no chest pain Gastrointestinal: no nausea and no vomiting Genitourinary: + as per Subjective / HPI Musculoskeletal: + back pain (Appropriate postop) Integumentary: no acne and no boil Neurologic: + unsteadiness; no memory loss Psychiatric: no hopelessness Hematologic / Lymphatic: no easy bleeding and no lymphadenopathy Allergy / Immunological: no tongue swelling Physical Exam Constitutional: + obese; no acute distress Eyes: eyes not dysmorphic ENMT: Ears: no external ear abnormality Neck: trachea midline; no anterior neck swelling Respiratory: no respiratory distress and does not use accessory muscles Cardiovascular: Vessels: radial pulses present Gastrointestinal (Abdomen): Inspection/Auscultation: abdomen not distended Percussion/Palpation: abdomen soft; abdomen nontender Musculoskeletal: Head/Neck/Chest: normocephalic and neck supple Skin: normal turgor Neurologic: awake; not obtunded Psychiatric: Orientation: oriented x 3 Lymphatic: no lymphadenopathy Results & Data Vital Signs (Past 12 Hours) Vital Signs Temp Pulse Resp BP Pulse Ox 05/29/19 08:35 36.8 C 90 19 146/71 H 95 05/29/19 00:41 36.7 C 22 96 Laboratory Results Laboratory Results - last 48 hr 05/27/19 05/27/19 05/28/19 17:09 20:39 08:09 Hgb Hct Sodium Potassium Chloride Carbon Dioxide Anion Gap BUN Creatinine Est Cr Clr Drug Dosing Est GFR ( Amer) Est GFR (Non-Af Amer) BUN/Creatinine Ratio Glucose POC Glucose 88 166 H 160 H Calcium 05/28/19 05/28/19 05/28/19 12:09 17:27 18:02 Hgb 10.2 L Hct 30.4 L Sodium Potassium Chloride Carbon Dioxide Anion Gap BUN Creatinine Est Cr Clr Drug Dosing Est GFR ( Amer) Est GFR (Non-Af Amer) BUN/Creatinine Ratio Glucose POC Glucose 201 H 224 H Calcium 05/28/19 05/28/19 05/29/19 18:02 20:34 08:19 Hgb Hct Sodium 131 L Potassium 4.2 Chloride 98 Carbon Dioxide 24 Anion Gap 9.0 BUN 25 H Creatinine 1.27 Est Cr Clr Drug Dosing 58.0 Est GFR ( Amer) 64.1 Est GFR (Non-Af Amer) 55.3 BUN/Creatinine Ratio 19.5 Glucose 229 H POC Glucose 229 H 118 H Calcium 8.7 05/29/19 12:05 Hgb Hct Sodium Potassium Chloride Carbon Dioxide Anion Gap BUN Creatinine Est Cr Clr Drug Dosing Est GFR ( Amer) Est GFR (Non-Af Amer) BUN/Creatinine Ratio Glucose POC Glucose 191 H Calcium PG Care Time/CCT Total # of Minutes Spent Total Time Spent with Patient: Total time spent is greater than 50% in coordination of care (as documented) at patient's floor/unit and/or counseling patient: Coding Level of Care Code 36034 Initial Inpt Care Lvl 3 Diagnoses BPH loc w urin obs/LUTS N40.1 Acute urinary retention R33.8
[2019-05-29] MEDS: FINASTERIDE 5 MG TAB PO SCH (12:43)
--- NOTE | 2019-05-29 12:43 | Progress Note ---
DATE: 05/29/2019 ORTHOPEDIC PROGRESS NOTE PERTINENT HISTORY: This is a 73-year-old gentleman seen at bedside. He is sitting up, finishing his breakfast. Discussed his continued hip pain. He explained that his left hip is hurting much more than his right hip has been bothering him. He requested that we perform a trochanteric bursa injection as I discussed with him yesterday. No other new symptoms or complaints. His low back surgery is progressing well as per his discussion with Dr. Isaacs. PHYSICAL EXAMINATION: The examination of bilateral hips demonstrates skin intact, warm and dry. Cap refill less than 2 seconds. He has tenderness to palpation of the left greater than right trochanteric bursa. Exam is essentially unchanged compared to previous exam yesterday. IMPRESSION: 1. Bilateral trochanteric bursitis, more pronounced on the left than the right. 2. Status post recent lumbar spinal fusion. 3. Bilateral mild hip osteoarthritis. 4. Ambulatory dysfunction secondary to above conditions. RECOMMENDATIONS: Left trochanteric bursa injection. Weightbearing as tolerated, physical therapy as tolerated and recommended by Dr. Isaacs. PROCEDURE NOTE: After obtaining verbal consent from the patient, his left trochanteric bursa region was then sterilely prepped with Betadine and alcohol. The ethyl chloride was then used to numb the skin as a refrigerant and 2 mL of 80 mg Depo-Medrol and 8 mL of 0.5% bupivacaine was injected into the left trochanteric bursa using a 22-gauge needle. The patient tolerated the procedure well. The needle was removed in its entirety without any evidence of breakage. A sterile compressive dressing and Band-Aid was applied at the left trochanteric bursa. The patient tolerated the procedure well. The patient was given instructions to ice the left hip 2-3 times per day for 15 minutes for comfort. Weightbearing as tolerated. No restrictions per my recommendations.
[2019-05-29] MEDS: cefTRIAXone SODIUM 2,000 MG in DEXTROSE 5% 50 ML IV SCH (19:22)
[2019-05-29] MEDS: CHOLECALCIFEROL 1,000 UNITS 25 MCG TAB PO SCH (21:01)
[2019-05-29] MEDS: MAGNESIUM OXIDE 400 MG TAB PO SCH (21:02)
[2019-05-29] MEDS: DOCUSATE SODIUM/SENNA 50/8.6MG TAB PO SCH (21:05)
[2019-05-30] MEDS: TRAMADOL HCL 50 MG TABLET PO PRN ×3 (03:17→13:05)
[2019-05-30] MEDS: INSULIN ASPART 100 UNITS/ML 3 ML PEN SC SCH ×4 (09:05→21:27)
[2019-05-30] MEDS: dilTIAZem HCL 120 MG CAPCR PO SCH (09:06)
[2019-05-30] MEDS: FINASTERIDE 5 MG TAB PO SCH (09:06)
[2019-05-30] MEDS: MIDODRINE HCL 2.5 MG TAB PO SCH ×3 (09:06→17:24)
[2019-05-30] MEDS: predniSONE 20 MG TAB PO SCH (09:06)
[2019-05-30] MEDS: INSULIN GLARGINE SOLOSTAR 100 UNITS/ML 3 ML PEN SC SCH ×2 (09:07→21:26)
[2019-05-30] MEDS: NICOTINE 21 MG/24 HR TDSY TD SCH (09:08)
[2019-05-30] MEDS: ATORVASTATIN 20 MG TAB PO SCH (09:08)
[2019-05-30] MEDS: POLYETHYLENE (MIRALAX) 17 GM PACK PO SCH ×2 (09:08→21:26)
--- NOTE | 2019-05-30 11:01 | Hospitalist Progress Note ---
Date of Service May 30, 2019 Assessment & Plan (1) Acute blood loss as cause of postoperative anemia: BILATERAL HIP PAIN : mri of pelvis shows DJD of rt hip joint /pt complains of severe bilateral hip pain , unable to stand UOC Orthopedics consulted for evaluation appreciate input, status post left hip joint steroid injection for trochanteric bursitis started on PO Prednisone already Patient reports mildly elevated improvement of symptom cont PT/OT , wt bearing as tolerated ACUTE BLOOD LOSS ANEMIA Patient developed acute blood loss anemia postoperatively/ Status post 3 units of PRBC transfusion Hemoglobin remained stable 8.7 repeat H&H ordered for continued orthostatic hypotension Significant orthostatic hypotension with symptoms tachycardia and significant bP drop with dizzy spell noted ordered for IV fluid cardizem -with holding parameters Diuretics d/aziza ordered for Midodrine URINARY TRACT INFECTION : urine culture : proteus , pansensitive on rocephin , can be changed to PO on discharge URINARY RETENTION : pt complained for increased frequency of urination and dysuria -possible due to UTI , tx as above needed frequent straight as post void urine > 400 ml Lennon catheter placed Lennon was removed 2 days back for voiding trial large amount of post void urine vol noted lennon re inserted Urology consult appreciated, started on finasteride, Will because of urinary retention -BPH, Continue Lennon catheter on discharge to rehab, outpatient follow-up for voiding trial (2) Postoperative state: Status post lumbar decompression and fusion on 05/18. Pain controlled with current regimen. Continues with PT/OT Ortho following, appreciate input (3) Spinal stenosis: Status post lumbar decompression and fusion on 05/18: Dr. Isaacs (4) Postoperative hypovolemic shock: resolved, Developed orthostatic hypotension, Diuretics discontinued, given IV fluids Continue to monitor vitals, fall precaution (5) Hypertension: -CARDIZEM resumed HCTZ and lisinopril discontinued . (6) Diabetes mellitus, type II: HB A1c at baseline which is 7.8. Around goal. Cont to monitor on current regimen. (7) Hyperlipidemia: -Continue atorvastatin per home regimen (8) CKD (chronic kidney disease): Developed acute renal failure, underlying CKD stage III possible diabetic nephropathy Given IV fluids, HCTZ/sinopril kept on hold Creatinine improved back to normal We will give IV fluids secondary to orthostatic hypotension Avoid NSAIDs and contrast study (9) Tobacco use: Smoking cessation strongly encouraged. NicoDerm patch daily given. (10) DVT prophylaxis: SCDs/ambulation. CODE STATUS: Full code Disposition-to rehab at time of discharge. Patient was scheduled to be transferred to rehab at [place] And to transfer to rehab next 1 to 2 days if bilat hip pain improves and off for patient to participate in PT OT Subjective Patient states his back pain is controlled to struggle with some left upper buttock and hip pain. Review of Systems Constitutional: Dizzy spell, lightheadedness while standing Respiratory: Dry nonproductive cough Genitourinary: + problem reported (urinary retention ) Musculoskeletal: as per Subjective / HPI and + joint pain (Bilateral hip pain ) bilateral hip /groin pain Physical Exam Constitutional: comfortable Eyes: PERRL, conjunctivae normal, anicteric sclerae EOM intact bilaterally ENMT: external ear and nose normal, oropharynx normal Neck: normal visual inspection Respiratory: normal respiratory effort Cardiovascular: Rate/Rhythm: regular rate and regular rhythm Gastrointestinal (Abdomen): normal bowel sounds, soft, nontender, no hepatosplenomegaly Musculoskeletal: Head/Neck/Chest: normocephalic and head atraumatic Neurologic: PERRL, EOMI, accommodation nl, no face palsy, no dysarthria Psychiatric: A+Ox3, euthymic affect Results & Data Vital Signs (Past 12 Hours) Vital Signs Temp Pulse Resp BP Pulse Ox 05/30/19 09:58 36.8 C 91 H 18 167/66 H 93 05/30/19 08:20 36.8 C 18 93 05/30/19 00:16 36.6 C 95
--- NOTE | 2019-05-30 14:20 | Orthopedic Progress Note ---
Date of Service May 30, 2019 Assessment & Plan (1) Neurogenic claudication due to lumbar spinal stenosis: At this time he is making progress albeit slowly. Were hoping for rehab today or tomorrow. Present on Admission?: Yes Subjective Patient states his back pain is controlled to struggle with some left upper buttock and hip pain. Physical Exam Physical Exam: On exam he is in a chair at the bedside is good strength testing. Is some tenderness palpation of left greater trochanter. Results & Data ([facility]) Vital Signs (Past 12 Hours) Vital Signs Temp Pulse Resp BP Pulse Ox 05/30/19 09:58 36.8 C 91 H 18 167/66 H 93 05/30/19 08:20 36.8 C 18 93
[2019-05-30] MEDS: OXYCODONE HCL IR 5 MG TAB (IMMEDIATE RELEASE) PO PRN ×2 (17:26→23:25)
[2019-05-30] MEDS: cefTRIAXone SODIUM 2,000 MG in DEXTROSE 5% 50 ML IV SCH (20:14)
[2019-05-30] MEDS: MAGNESIUM OXIDE 400 MG TAB PO SCH (21:26)
[2019-05-30] MEDS: CHOLECALCIFEROL 1,000 UNITS 25 MCG TAB PO SCH (21:28)
[2019-05-30] MEDS: DOCUSATE SODIUM/SENNA 50/8.6MG TAB PO SCH (21:29)
[2019-05-31] MEDS: NICOTINE 21 MG/24 HR TDSY TD SCH (08:41)
[2019-05-31] MEDS: ATORVASTATIN 20 MG TAB PO SCH (08:41)
[2019-05-31] MEDS: dilTIAZem HCL 120 MG CAPCR PO SCH (08:41)
[2019-05-31] MEDS: predniSONE 20 MG TAB PO SCH (08:41)
[2019-05-31] MEDS: FINASTERIDE 5 MG TAB PO SCH (08:41)
[2019-05-31] MEDS: MIDODRINE HCL 2.5 MG TAB PO SCH ×2 (08:41→12:56)
[2019-05-31] MEDS: POLYETHYLENE (MIRALAX) 17 GM PACK PO SCH (08:42)
[2019-05-31] MEDS: INSULIN GLARGINE SOLOSTAR 100 UNITS/ML 3 ML PEN SC SCH (08:43)
[2019-05-31] MEDS: INSULIN ASPART 100 UNITS/ML 3 ML PEN SC SCH ×2 (08:45→12:56)
[2019-05-31] MEDS: TRAMADOL HCL 50 MG TABLET PO PRN (08:47)
--- NOTE | 2019-05-31 10:20 | Hospitalist Progress Note ---
Date of Service May 31, 2019 Assessment & Plan (1) Acute blood loss as cause of postoperative anemia: BILATERAL HIP PAIN : mri of pelvis shows DJD of rt hip joint /pt complains of severe bilateral hip pain , unable to stand [facility]OC Orthopedics consulted for evaluation appreciate input, status post left hip joint steroid injection for trochanteric bursitis started on PO Prednisone already Patient reports mildly elevated improvement of symptom will be discharged on medrol dose pack cont PT/OT , wt bearing as tolerated ACUTE BLOOD LOSS ANEMIA due to post of status corrected Patient developed acute blood loss anemia postoperatively/ Status post 3 units of PRBC transfusion Hemoglobin remained stable 8.7 repeat H&H ordered for continued orthostatic hypotension BP has been stable so far Significant orthostatic hypotension with symptoms tachycardia and significant bP drop with dizzy spell noted giveN iV fluids BP has been stable diuretics D/aziza URINARY TRACT INFECTION : urine culture : proteus , pansensitive on rocephin , can be changed to PO on discharge URINARY RETENTION : pt complained for increased frequency of urination and dysuria -possible due to UTI , tx as above needed frequent straight as post void urine > 400 ml Herbert catheter placed appreciate input from urology Per Dr Gongora -pt will be discharged to rehab with indwelling [facility] will have out pt follow up in clinic for trial of void and clean interm ittent catheterization teaching for the short to medium term drainage of the patient's bladder. may need cystoscopy as needed depending on his response to medical therapy. pt is discharged with PO Finestaride avoid Flomax for orthostatic hypotension (2) Postoperative state: Status post lumbar decompression and fusion on 05/18. Pain controlled with current regimen. Continues with PT/OT Ortho following, appreciate input stable to be transferred to rehab today (3) Spinal stenosis: Status post lumbar decompression and fusion on 05/18: Dr. Isaacs (4) Postoperative hypovolemic shock: resolved, Developed orthostatic hypotension, Diuretics discontinued, given IV fluids BP has been stable (5) Hypertension: -CARDIZEM resumed HCTZ and lisinopril discontinued . (6) Diabetes mellitus, type II: HB A1c at baseline which is 7.8. Around goal. Cont to monitor on current regimen. (7) Hyperlipidemia: -Continue atorvastatin per home regimen (8) CKD (chronic kidney disease): resolved renal status at baseline Developed acute renal failure, underlying CKD stage III possible diabetic nephropathy Given IV fluids, HCTZ/sinopril kept on hold Creatinine improved back to normal We will give IV fluids secondary to orthostatic hypotension Avoid NSAIDs and contrast study (9) Tobacco use: Smoking cessation strongly encouraged. NicoDerm patch daily given. (10) DVT prophylaxis: SCDs/ambulation. CODE STATUS: Full code Disposition-to rehab at time of discharge. Patient is scheduled to be transferred to rehab at [place] Subjective back pain , hip pain better no cough or fever or chills stable to be transferred to rehab today Review of Systems Constitutional: Dizzy spell, lightheadedness while standing Respiratory: Dry nonproductive cough Genitourinary: + problem reported (urinary retention ) Musculoskeletal: as per Subjective / HPI and + joint pain (Bilateral hip pain ) bilateral hip /groin pain Physical Exam Constitutional: comfortable Eyes: PERRL, conjunctivae normal, anicteric sclerae EOM intact bilaterally ENMT: external ear and nose normal, oropharynx normal Neck: normal visual inspection Respiratory: normal respiratory effort Cardiovascular: Rate/Rhythm: regular rate and regular rhythm Gastrointestinal (Abdomen): normal bowel sounds, soft, nontender, no hepatosplenomegaly Musculoskeletal: Head/Neck/Chest: normocephalic and head atraumatic Neurologic: PERRL, EOMI, accommodation nl, no face palsy, no dysarthria Psychiatric: A+Ox3, euthymic affect Results & Data Vital Signs (Past 12 Hours) Vital Signs Temp Pulse Resp BP Pulse Ox 05/31/19 07:38 36.7 C 78 18 157/71 H 98 05/30/19 23:50 36.9 C 81 20 129/66 95
--- NOTE | 2019-05-31 11:25 | Discharge Summary ---
Date of Service May 31, 2019 Admission HPI Per Admitting Provider This is a 73-year-old male who presents with back and bilateral leg pain. After failing extensive course of nonoperative care is here for surgical invention. Principal Diagnosis Lumbar spinal stenosis with neurogenic claudication status post lumbar decompression surgery Bilateral hip pain, secondary to degenerative joint disease/arthritis Urinary retention secondary to benign prostatic hyperplasia Discharge Exam Constitutional comfortable Eyes PERRL, conjunctivae normal, anicteric sclerae EOM intact bilaterally ENMT external ear and nose normal, oropharynx normal Neck normal visual inspection Respiratory normal respiratory effort Cardiovascular Rate/Rhythm: regular rate and regular rhythm Gastrointestinal (Abdomen) normal bowel sounds, soft, nontender, no hepatosplenomegaly Musculoskeletal Head/Neck/Chest: normocephalic and head atraumatic Neurologic PERRL, EOMI, accommodation nl, no face palsy, no dysarthria Psychiatric A+Ox3, euthymic affect Discharge Data Allergies Allergy/AdvReac Type Severity Reaction Status Date / Time No Known Allergies Allergy Mild Verified 05/18/19 08:59 Consultations 05/18/19 15:32 Consult [employer] Duty Manager Routine 05/18/19 16:37 Consult Case Management - Discharge Planning Routine Consult Hospitalist Routine 05/28/19 10:56 Consult Orthopedic Surgery Routine 05/28/19 17:05 Consult Urology Routine Procedures Performed Operation Date: 05/18/19 10:05 Actual Procedures p T11-S1 Decompression and Fusion, Interbody Insertion L4-L5, Use of Osteoamp and Infuse, Spinal Cord Monitoring(Not Applicable) - Arjun Isaacs, Ordered Studies 05/18/19 10:05 FL fluoroscopy <1hr Routine FL lumbar spine 2-3V Routine 05/26/19 12:39 MR pelvis wo con Urgent Hospital Course (1) Acute blood loss as cause of postoperative anemia: BILATERAL HIP PAIN : mri of pelvis shows DJD of rt hip joint /pt complains of severe bilateral hip pain , unable to stand [facility]OC Orthopedics consulted for evaluation appreciate input, status post left hip joint steroid injection for trochanteric bursitis started on PO Prednisone already Patient reports mildly elevated improvement of symptom will be discharged on medrol dose pack cont PT/OT , wt bearing as tolerated ACUTE BLOOD LOSS ANEMIA due to post of status corrected Patient developed acute blood loss anemia postoperatively/ Status post 3 units of PRBC transfusion Hemoglobin remained stable 8.7 repeat H&H ordered for continued orthostatic hypotension BP has been stable so far Significant orthostatic hypotension with symptoms tachycardia and significant bP drop with dizzy spell noted giveN iV fluids -with minimum improvement added Midodrine /BP has been stable so far BP has been stable diuretics D/aziza URINARY TRACT INFECTION : urine culture : proteus , pansensitive on rocephin , can be changed to PO ciprofloxacin URINARY RETENTION : pt complained for increased frequency of urination and dysuria -possible due to UTI , tx as above needed frequent straight as post void urine > 400 ml Herbert catheter placed appreciate input from urology Per Dr Gongora -pt will be discharged to rehab with indwelling [facility] will have out pt follow up in clinic for trial of void and clean intermittent catheterization teaching for the short to medium term drainage of the patient's bladder. may need cystoscopy as needed depending on his response to medical therapy. pt is discharged with PO Finestaride avoid Flomax for orthostatic hypotension (2) Postoperative state: Status post lumbar decompression and fusion on 05/18. Pain controlled with current regimen. Continues with PT/OT Ortho following, appreciate input stable to be transferred to rehab today (3) Spinal stenosis: Status post lumbar decompression and fusion on 05/18: Dr. Isaacs (4) Postoperative hypovolemic shock: resolved, Developed orthostatic hypotension, Diuretics discontinued, given IV fluids BP has been stable (5) Hypertension: -CARDIZEM resumed HCTZ and lisinopril discontinued . (6) Diabetes mellitus, type II: HB A1c at baseline which is 7.8. Around goal. Cont to monitor on current regimen. (7) Hyperlipidemia: -Continue atorvastatin per home regimen (8) CKD (chronic kidney disease): resolved renal status at baseline Developed acute renal failure, underlying CKD stage III possible diabetic nephropathy Given IV fluids, HCTZ/sinopril kept on hold Creatinine improved back to normal We will give IV fluids secondary to orthostatic hypotension Avoid NSAIDs and contrast study (9) Tobacco use: Smoking cessation strongly encouraged. NicoDerm patch daily given. (10) DVT prophylaxis: SCDs/ambulation. CODE STATUS: Full code Disposition-to rehab at time of discharge. Patient is scheduled to be transferred to rehab at [place] Total Time Total Time Spent Total Time Spent (In Minutes): approx 40 mins Total Time Includes: Examination of the Patient, Discharge Planning and Medication Reconciliation Discharge Plan Discharge Items Patient Disposition: Transfer Inpatient Rehab Fac Reason For Visit: Low Back Pain Discharge Diagnosis: Lumbar spinal stenosis with neurogenic claudication status post lumbar decompression surgery Bilateral hip pain, secondary to degenerative joint disease/arthritis Urinary retention secondary to benign prostatic hyperplasia Activity: As commented below Activity Comment: Continue physical therapy occupational therapy at rehab Weightbearing Comment: weight bearing as tolerated Non-emergency contact: Primary Care Provider Call non-emergency contact if: you have any medication questions Follow-up/Referrals: Héctor Gongora MD [Physician] - (Urology follow up after discharge form rehab for urinary retention please call office to schedule appointment ) Mayuri Kincaid MD [Primary Care Provider] - Diet: Regular Addtl Attending Provider Instructions: ACTIVITY RECOMMENDATIONS: SELF CARE INSTRUCTIONS AFTER THORACIC/LUMBAR FUSIONS 1. You may walk to your tolerance. It is good exercise for your legs and back. Expect some back and intermittent leg aches and pains. 2. You may perform "counter-top" level activities (make a sandwich, megan with a project, etc.). 3. No bending or lifting of more than 10 pounds or back twisting of any nature (roll like a log when turning in bed). 4. You may ride in a car for 20-30 minutes at a time. No driving until after your first visit with your doctor. 5. Frequent changes of position and restricting sitting to 30 minutes at a time will help limit the amount of back spasms and stiffness you may experience. 6. You may discontinue the use of ambulatory aids (cane, crutches, etc.) once your strength and confidence allow. 7. You may drying supervisor the shower and let water strike your incision when you arrive home at least once daily. Do not take a tub bath, sit in a hot tub or go into a swimming pool until after your first recheck in the office. SPECIAL CARE INSTRUCTIONS: VERY IMPORTANT TO READ AND REVIEW A. Your surgical incision has been closed with a cosmetic suture under the skin that will dissolve in about 6 weeks. In 14 days, you can use a pair of clean scissors and cut the suture that is left outside of the skin at the ends of your incision. 1. The small skin tapes can be removed 7 days after surgery if they have not fallen off by that point. 2. You may keep the wound open to air as much as possible to promote healing after post-op day number 5 unless told otherwise by your doctor. 3. If you think the wound looks like it is becoming infected (redness or worsening drainage) and/or you are experiencing fever, chill or worsening back pain and muscle spasms, contact the office so that we may evaluate you as soon as possible. B. Complications are uncommon, but please contact us if you have any signs or symptoms of: 1. wound infection (fever higher than 102.5 degrees F, redness, separation of wound, drainage, or increasing pain from the incision) 2. blood clots in legs (pain, swelling, redness and warmth in legs) 3. urinary tract infection (fever higher than 102.5 degrees F, burning upon urination or increased frequency of urination) 4. nerve problems (inability to walk on your toes or heels, numbness, loss of bowel or bladder control) 5. any other symptoms that concern you C. Please call the office at if you have any concerns or quest ions about your operation or recovery. D. No smoking! Smoking drastically decreases the chance of a solid fusion. E. Do not take any anti-inflammatory medications (Indocin, Advil, Motrin, Aspirin, Naprosyn, etc.) as these may inhibit the chance of a solid fusion. Tylenol is okay to take for pain. MANAGING PAIN AFTER SPINAL SURGERY 1. Narcotic medication is intended for short-term use and will be provided for surgical pain. Surgical pain usually lasts for a period of 4-6 weeks. Narcotic medication includes Percocet, Vicodin, Darvocet, Tylenol #3 or Lortab. 2. Longer-term pain is more appropriately treated with non-narcotic medication such as Tylenol ES. 3. Muscle spasm is not appropriately treated with narcotics. Muscle relaxers such as Soma, Flexeril or Skelaxin can be used along with Tylenol ES. 4. Remember that we all live with some "aches and pains". This is not unusual or uncommon after an injury or as we get older. a. Back pain is expected and may include muscle spasms for 4 to 6 weeks after surgery. The pain should gradually improve. If the pain worsens for no apparent reason, please contact the office. b. Intermittent leg pain may also be experienced and should not be concerned about unless it worsens for no apparent reason. If so, please contact the office. 5. We will provide appropriate medication within the normal guidelines of their prescribed use. We will also be very cautious and aware of potential abuse and extended duration of patients' medication needs. a. Pain medications are for your comfort and to assist with sleep and rest so that the tissue can heal. They are not provided in order to return to normal activity and should not be used through the day. To do so or worsening pain at night can result from ongoing tissue damage and development of tolerance to the prescribed medicine. 6. Please allow 2-3 days to process refills. Prescriptions will not be mailed but must be picked up at the office. FOLLOW UP VISIT: Keep your scheduled follow-up appointment. Any questions, please call the office at . Pending Studies at Discharge: No Stand-Alone Forms: My [facility] Skilled Items Patient informed of condition?: Yes DNR: No Discharge Level of Care: Acute rehab Communicable Disease: No Discharge Prognosis: Improving Lines: None Urinary Catheter: Yes Medications and DC Order Prescriptions: New tramadol 50 mg tablet 50 mg PO Q6H PRN (Reason: pain, moderate) Qty: 30 RF: 0 oxycodone 5 mg tablet 5 mg PO Q6H PRN (Reason: pain, severe) Qty: 30 RF: 0 finasteride [Proscar] 5 mg Tablet 5 mg PO QAM 30 Days Qty: 30 RF: 0 ciprofloxacin HCl [Cipro] 250 mg tablet 250 mg PO BID 3 Days Qty: 6 RF: 0 nicotine [Nicoderm CQ] 21 mg/24 hr Patch 24 Hour 21 mg transdermal QAM 30 Days Qty: 30 RF: 0 midodrine 2.5 mg Tablet 5 mg PO TID 30 Days Qty: 180 RF: 0 albuterol sulfate [Ventolin HFA] 90 mcg/actuation Hfa Aerosol Inhaler 4 puff inhalation Q4R PRN (Reason: wheeze) Qty: 1 RF: 0 methylprednisolone [Medrol (Abdulaziz)] 4 mg tablets,dose pack 4 mg PO UD Qty: 21 RF: 0 Continued atorvastatin 20 mg Tablet 20 mg PO QAM RF: 0 aspirin [Aspir-81] 81 mg Tablet,Delayed Release (Dr/Ec) 81 mg PO QAM RF: 0 metformin 1,000 mg Tablet 1,000 mg PO BID RF: 0 diltiazem HCl [Cardizem CD] 120 mg Capsule,Extended Release 24hr 120 mg PO QAM RF: 0 cholecalciferol (vitamin D3) [Vitamin D3] 1,000 unit Tablet,Chewable 1,000 unit PO QPM RF: 0 Discontinued lisinopril-hydrochlorothiazide 20-12.5 mg Tablet 1 tab PO BID RF: 0 ibuprofen 200 mg Tablet 600 mg PO Q6H PRN (Reason: Pain) RF: 0 Discharge Orders: Discharge Order (Routine); Ordered 05/30/19 Ordered By: Arjun Isaacs Admission Data Admit Date/Time: 05/18/19 15:32 Attending Provider: Arjun Isaacs Admit Provider: Arjun Isaacs Primary Care Provider: Mayuri Kincaid Other Providers: Jose Berman ; Kaylie Cartwright ; Arjun Isaacs ; Theo Gomez ; Sanjay Andino ; Miley Mcknight ; Joe Boston ; Willow Smiley ; Devon Elliott ; Neno Milner ; Chilo Valdez ; Neno Tsang ; Kaiden Chairez ; Chilo Day ; Landon Santiago ; Minh Elmore ; Wan Ash ; Mauro Han ; Sean Brower ; Willow Salinas ; Se Casillas ; Camden Velazco ; Erickson Yi ; Maxwell Hernandez ; Jean-Pierre Patel ; Héctor Gongora I. ; Chilo Carlisle ; Marian Burrell ; Benji Luis ; Eleni Anderson I ; Catie Muir ; Joe Moraes ; Sharron Valera. Other Interventions: Discharge Summary Assessment (RN) Last Done: 05/31/19 10:55
[2019-05-31] MEDS: OXYCODONE HCL IR 5 MG TAB (IMMEDIATE RELEASE) PO PRN (13:14)
== END 2019-05-31 14:19 | DRG 453 ==
LOC: ASU 08:17 → 1E 15:32 → 2W 05-19 17:55 → 3N 05-21 14:41